=== PATIENT | female | born 1970 | race Caucasian/White ===

== ENCOUNTER 2021-05-06 08:09 | Outpatient (REF) | payer BC, SELFPAY ==
[2021-05-06 11:25] LABS: MANUAL DIFF FLAG NO
[2021-05-06 11:42] LABS: Basophils Absolute Auto 0.1 X10*3/uL (0.0-0.2); Basophils Percent Auto 0.8 % (0-2); Eosinophils Absolute Auto 0.2 X10*3/uL (0.0-0.4); Eosinophils Percent Auto 2.7 % (0-4); Hematocrit 44.9 % (37-47); Hemoglobin 14.8 g/dl (12.0-16.0); Imm Gran Abs Auto 0.02 X10*3/uL (0.00-0.03); Imm Gran Pct Auto 0.3 % (0.0-0.4); Lymphocytes Absolute Auto 2.3 X10*3/uL (1.2-4.9); Lymphocytes Percent Auto 28.7 % (20-40); Mean Corpuscular Hemoglobin 31.4 pg (27.0-33.0); Mean Corpuscular Volume 95.3 fL (80-98); Mean Platelet Volume 11.2 fL (9.4-12.3); Monocytes Absolute Auto 0.6 X10*3/uL (0.1-1.2); Monocytes Percent Auto 7.5 % (2-11); Neutrophils Absolute Auto 4.8 X10*3/uL (2.0-8.3); Platelet Count 380 X10*3/uL (160-400); Red Blood Count 4.71 X10*6/uL (4.20-5.50); Red Cell Distribution Width 13.2 % (11.0-16.0); White Blood Count 7.9 X10*3/uL (4.8-10.8)
[2021-05-06 12:00] LABS: Alanine Aminotransferase 23 U/L (0-31); Albumin Level 4.4 g/dL (3.5-5.0); Alkaline Phosphatase 76 U/L (39-117); Anion Gap 14 (12-20); Aspartate Amino Transferase 21 U/L (5-31); Bilirubin Total 0.5 mg/dL (0.0-1.0); Blood Urea Nitrogen 15 mg/dL (9-16); Calcium 9.5 mg/dL (8.4-10.2); Carbon Dioxide 25 mmol/L (22-29); Chloride 104 mmol/L (96-108); Cholesterol 245 mg/dL; Estimated Glomerular Filt Rate > 60; Glucose Fasting 100 mg/dL (60-99); HDL Cholesterol 42 mg/dL; LDL Cholesterol Calculated 163 mg/dl; Potassium 4.5 mmol/L (3.3-5.1); Sodium 138 mmol/L (135-145); Total Protein 7.7 g/dL (6.5-8.0); Triglycerides 201 mg/dL
[2021-05-06 12:14] LABS: TSH reflex Free T4 1.41 uIU/mL (0.32-4.0)
== END 2021-05-06 08:10 | disposition home or self-care (01) ==
LOC: HO.HMGCLDS 08:09
PROVIDERS: PCP Internal Medicine; Visit Provider Internal Medicine
DX: Z00.00 Encounter for general adult medical examination without abnormal findings (principal)
CPT/HCPCS: 36415; 80053; 80061; 84443; 85025

== ENCOUNTER 2021-12-31 03:21 | Emergency (ER) | payer BC, SELFPAY ==
[2021-12-31 03:24] VITALS: BP 115/48; BP 164/100; PULSE 115; PULSE 90; RESP 18; TEMP 36.8; O2SAT 100; BMI 33.6
--- NOTE | 2021-12-31 03:37 | ED.ANXIETY ---
HPI - Anxiety General Chief Complaint: Anxiety Stated Complaint: anxiety attack Time Seen by Provider: 12/31/21 03:37 Source: patient Mode of arrival: ambulatory Limitations: no limitations History of Present Illness HPI narrative: Patient history of anxiety woke up from the sleep with severe anxiety took 3 tablets of 0.5 mg Klonopin which she usually takes still feel little anxious slightly better no depression no suicidal ideation patient has increased stress at home Related Data Home Medications Medication Instructions Recorded Confirmed dextroamphetamine-amphetamine 20 20 mg PO DAILY 03/21/21 05/06/21 mg tablet (Adderall) venlafaxine 150 mg 150 mg PO BID 03/21/21 05/06/21 capsule,extended release 24 hr clonazepam 0.5 mg tablet 0.5 mg PO DAILY PRN tab 05/06/21 05/06/21 trazodone 50 mg tablet 50 mg PO BEDTIME PRN tab 05/06/21 05/06/21 Previous Rx's Medication Instructions Recorded hydrocortisone 2.5 % topical cream 1 appl TOPICAL BID PRN #30 g 03/21/21 Allergies Allergy/AdvReac Type Severity Reaction Status Date / Time paroxetine [From PAXIL] Allergy Intermediate RASH Unverified 05/06/21 07:38 FACE/NECK adhesive [ADHESIVE] Allergy Mild BLISTERS Unverified 05/06/21 07:38 adhesives, tape Allergy Unknown blisters Uncoded 05/06/21 07:38 Review of Systems Review of Systems: Yes all other systems are reviewed and are negative PMF Past Medical History Medical History Abnormal colonoscopy Annual physical exam Anxiety Diverticulosis Insomnia Mammogram normal Normal Pap smear Family History Family History Mother Hypertension Thyroid disorder Father Diverticulitis Maternal Grandmother Thyroid disorder Social History Social History Household Members Other:: 14 years daughter, works in will be retired in July Housing: Condominium Alcohol intake: current Patient Tobacco Use Status: Never used Tobacco Second Hand Smoke Exposure: No Advance Directives: No Current occupational status: employed Physical Exam Vital Signs: Vital Signs: Last Vital Signs Temp 98.2 F 12/31/21 03:24 Pulse 84 12/31/21 05:41 Resp 18 12/31/21 05:41 BP 111/62 12/31/21 05:41 Pulse Ox 98 12/31/21 05:41 BMI result Body Mass Index 33.6 Appearance: Alert. Oriented X3. No acute distress. Anxious+ Eyes: PERRLA, No Nystagmus ENT: Pharynx normal. Oral Mucosa moist Neck: Normal inspection. Neck supple. CVS: Normal heart rate and rhythm. Pulses normal. Respiratory: No respiratory distress. Equal air entry bilateral, Abdomen: Soft and nontender. Bowel sounds are present, no mass palpable, no CVA tenderness Skin: Skin warm and dry. Normal skin color. Normal skin turgor. Extremities: No lower extremity edema. No calf tenderness Neuro: Oriented X 3. No motor deficit. MDM - Anxiety MDM Narrative Medical decision making narrative: Patient after Benadryl slept felt much better will discharge patient home Differential Diagnosis Differential diagnosis: Likely acute anxiety Lab Data Attestation: I reviewed the patient's lab results. Labs: Lab Results 12/31/21 Range/Units 03:57 COVID-19 (EVELIN) Negative (Negative) COVID-19 Clin Com See Note Discharge Plan Discharge Clinical Impression: Anxiety Patient Disposition: Home, Self-Care Instructions: Anxiety (ED) Additional Instructions: Rest at home Taking medication as prescribed Follow with her therapist/psychiatrist Prescriptions: No Action venlafaxine 150 mg capsule,extended release 24hr 150 mg PO BID 0RF dextroamphetamine-amphetamine [Adderall] 20 mg tablet 20 mg PO DAILY 0RF hydrocortisone 2.5 % cream 1 appl topical BID PRN (Reason: rash) Qty: 30 2RF trazodone 50 mg tablet 50 mg PO BEDTIME PRN (Reason: insomnia) 0RF clonazepam 0.5 mg tablet 0.5 mg PO DAILY PRN (Reason: anxiety) 0RF
[2021-12-31] MEDS: diphenhydrAMINE HCL 25 MG TABLET 50 MG PO (03:58)
[2021-12-31 04:19] LABS: COVID-19 Test Negative (Negative)
[2021-12-31 05:41] VITALS: BP 111/62; PULSE 84; RESP 18; O2SAT 98
== END 2021-12-31 06:39 | disposition home or self-care (01) ==
PROVIDERS: Emergency Provider Internal Medicine
DX: F41.9 Anxiety disorder, unspecified (principal); Z79.899 Other long term (current) drug therapy; Z20.822 Contact with and (suspected) exposure to COVID-19
CPT/HCPCS: 87635; 99283; Q0163

== ENCOUNTER 2022-05-04 10:30 | Outpatient (REF) | payer BC, SELFPAY ==
[2022-05-04 11:24] LABS: MANUAL DIFF FLAG NO
[2022-05-04 11:33] LABS: Basophils Absolute Auto 0.1 X10*3/uL (0.0-0.2); Basophils Percent Auto 0.8 % (0-2); Eosinophils Absolute Auto 0.3 X10*3/uL (0.0-0.4); Eosinophils Percent Auto 3.3 % (0-4); Hemoglobin 15.4 g/dl (12.0-16.0); Imm Gran Abs Auto 0.02 X10*3/uL (0.00-0.03); Imm Gran Pct Auto 0.3 % (0.0-0.4); Lymphocytes Absolute Auto 2.8 X10*3/uL (1.2-4.9); Lymphocytes Percent Auto 35.1 % (20-40); Mean Corpuscular HGB Conc 33.5 g/dl (31.0-35.0); Mean Corpuscular Hemoglobin 31.2 pg (27.0-33.0); Mean Corpuscular Volume 93.3 fL (80.0-98.0); Mean Platelet Volume 10.7 fL (9.4-12.3); Monocytes Absolute Auto 0.6 X10*3/uL (0.1-1.2); Monocytes Percent Auto 7.4 % (2-11); Neutrophils Absolute Auto 4.2 x10*3/uL (2.0-8.3); Neutrophils Percent Auto 53.1 % (45-73); Platelet Count 386 X10*3/uL (160-400); Red Blood Count 4.93 X10*6/uL (4.20-5.50); Red Cell Distribution Width 12.8 % (11.0-16.0); White Blood Count 7.8 X10*3/uL (4.8-10.8)
[2022-05-04 11:59] LABS: Alanine Aminotransferase 38 U/L (0-31); Albumin Level 4.4 g/dL (3.5-5.0); Alkaline Phosphatase 89 U/L (39-117); Anion Gap 15 (12-20); Aspartate Amino Transferase 29 U/L (5-31); Bilirubin Total 0.4 mg/dL (0.0-1.0); Blood Urea Nitrogen 17 mg/dL (9-16); Calcium 9.8 mg/dL (8.4-10.2); Carbon Dioxide 27 mmol/L (22-29); Chloride 103 mmol/L (96-108); Cholesterol 269 mg/dL; Estimated Glomerular Filt Rate 56; Glucose Fasting 102 mg/dL (60-99); HDL Cholesterol 39 mg/dL; LDL Cholesterol Calculated 167 mg/dl; Potassium 4.5 mmol/L (3.3-5.1); Rheumatoid Factor < 15.0 IU/mL (<15.0); Sodium 140 mmol/L (135-145); Total Protein 7.8 g/dL (6.5-8.0); Triglycerides 318 mg/dL
[2022-05-04 12:15] LABS: Erythrocyte Sedimentation Rate 12 MM/HR (0-20)
[2022-05-04 12:18] LABS: TSH reflex Free T4 1.31 uIU/mL (0.32-4.0)
[2022-05-07 16:47] LABS: Cyclic Citrullinated Peptide <16 UNITS
== END 2022-05-04 10:31 | disposition home or self-care (01) ==
LOC: HO.HMGCLDS 10:30
PROVIDERS: PCP Internal Medicine; Visit Provider Internal Medicine
DX: M25.50 Pain in unspecified joint (principal)
CPT/HCPCS: 36415; 80053; 80061; 84443; 85025; 85652; 86200; 86431

== ENCOUNTER 2023-02-27 05:12 | Inpatient (IN) | payer BC, SELFPAY ==
[2023-02-27] VITALS (7 sets, daily range): BP systolic 115–138; BP diastolic 73–85; PULSE 71–105; RESP 16–18; TEMP 36.1–37.2; O2SAT 95–100; BMI 32.8
--- NOTE | ~2023-02-27 | CT_ITS ---
EXAMINATION: CT ABDOMEN AND PELVIS WITHOUT CONTRAST CLINICAL INFORMATION: Left lower abdominal pain. Diverticulitis. COMPARISON: Multiple priors, most recent CT abdomen/pelvis dated 09/14/2019. TECHNIQUE: Multidetector volumetric imaging was performed from the superior aspect of the liver through the pubic symphysis. Sagittal and coronal reformatted images were obtained on the technologist's workstation. This CT examination was performed using dose optimization techniques as appropriate, variously including the following: *Automated exposure control *Adjustment of mA and/or kV according to patient size (this includes techniques or standardized protocols for targeted exams where dose is matched to indication/reason for exam; i.e. extremities or head) *Use of iterative reconstruction technique DLP: 668 mGy-cm FINDINGS: LUNG BASES: The visualized lung bases are unremarkable. LIVER, GALLBLADDER, AND BILIARY TREE: The liver is normal in size and shape. Parenchymal hypointensity, consistent with steatosis. No focal hepatic lesion or biliary ductal dilatation is present. The gallbladder is unremarkable with no evidence of radiopaque gallstones, gallbladder wall thickening, or obvious pericholecystic inflammatory changes. PANCREAS: Unremarkable. SPLEEN: Unremarkable. ADRENAL GLANDS: Partially calcified left adrenal nodule measuring up to 1.5 cm, unchanged when compared to prior examinations. No concerning adrenal lesion. KIDNEYS AND URETERS: The kidneys are normal in size, shape, and attenuation. No hydronephrosis, hydroureter, or calculi seen. No perinephric stranding. BLADDER: Nondistended and unremarkable. GASTROINTESTINAL TRACT: Colonic diverticulosis. There is a prominent diverticulum along the anterior margin of the splenic flexure with circumferential bowel wall thickening and adjacent fat stranding, consistent with acute diverticulitis. No extraluminal air or organized fluid collection to suggest perforation or abscess formation. No small or large bowel obstruction. Unremarkable appendix. PERITONEAL CAVITY: No intra-abdominal free air or free fluid. No intra-abdominal mass or organized fluid collection/abscess formation. ABDOMINAL WALL: No significant hernia is appreciated. LYMPH NODES: No significant lymphadenopathy. VASCULAR: Unremarkable. PELVIC VISCERA: The uterus and adnexa are unremarkable. OSSEOUS STRUCTURES: Unremarkable. CT/CT abdomen pelvis wo IV con IMPRESSION: 1. Acute diverticulitis within the splenic flexure. No evidence of perforation or abscess formation. 2. Hepatic steatosis. No hepatic parenchymal lesion or biliary ductal dilatation. 3. Additional chronic findings are unchanged. Fleischner guidelines were followed.
[2023-02-27 05:43] LABS: Basophils Percent Auto 0.3 % (0-2); Eosinophils Absolute Auto 0.4 X10*3/uL (0.0-0.4); Eosinophils Percent Auto 2.8 % (0-4); Hematocrit 41.1 % (37.0-47.0); Hemoglobin 13.9 g/dl (12.0-16.0); Imm Gran Abs Auto 0.06 X10*3/uL (0.00-0.03); Imm Gran Pct Auto 0.4 % (0.0-0.4); Lymphocytes Absolute Auto 2.6 X10*3/uL (1.2-4.9); Lymphocytes Percent Auto 19.1 % (20-40); MANUAL DIFF FLAG NO; Mean Corpuscular HGB Conc 33.8 g/dl (31.0-35.0); Mean Corpuscular Volume 91.7 fL (80.0-98.0); Mean Platelet Volume 10.1 fL (9.4-12.3); Monocytes Absolute Auto 0.9 X10*3/uL (0.1-1.2); Monocytes Percent Auto 6.9 % (2-11); Neutrophils Absolute Auto 9.5 x10*3/uL (2.0-8.3); Neutrophils Percent Auto 70.5 % (45-73); Platelet Count 346 X10*3/uL (160-400); Red Blood Count 4.48 X10*6/uL (4.20-5.50); Red Cell Distribution Width 12.8 % (11.0-16.0); White Blood Count 13.5 X10*3/uL (4.8-10.8)
[2023-02-27 05:57] LABS: Anion Gap 14 (12-20); Blood Urea Nitrogen 16 mg/dL (9-16); Calcium 9.4 mg/dL (8.4-10.2); Carbon Dioxide 24 mmol/L (22-29); Chloride 104 mmol/L (96-108); Creatinine Clr Calc Pharmacy 75.8; Estimated Glomerular Filt Rate > 60; Glucose Random 122 mg/dL (60-115); Lipase 13 U/L (8-78); Potassium 4.2 mmol/L (3.3-5.1); Sodium 138 mmol/L (135-145)
[2023-02-27 06:03] LABS: Troponin-I High Sensitivity < 2.7 ng/L (<3.5-17.0)
--- NOTE | 2023-02-27 07:41 | ED_ITS ---
HPI - Abdominal Pain General Chief Complaint: Abdominal Pain Stated Complaint: Diverticulitis? Time Seen by Provider: 02/27/23 07:26 Source: patient Mode of arrival: ambulatory Limitations: no limitations History of Present Illness HPI narrative: 52-year-old female came in for evaluation of lower abdominal pain. Started about 2 days ago and progressively getting worse described as dull aching pain mostly to the lower abdomen radiates to the back and feels pressure in the rectum area, declined any vomiting but sometimes feels nauseous with the pain, last bowel movement was yesterday and was normal passing flatus normally, no blood in the stool. No fever, no chills. Patient had a similar symptoms in the past and she had diverticulitis. No previous abdominal surgery in the past. Related Data Home Medications Medication Instructions Recorded Confirmed clonazepam 0.5 mg tablet 0.5 mg PO DAILY PRN anxiety 05/06/21 05/04/22 Previous Rx's Medication Instructions Recorded hydrocortisone 2.5 % topical cream 1 appl topical BID PRN rash #30 02/17/22 grams trazodone 50 mg tablet 50 mg PO BEDTIME PRN insomnia #90 05/04/22 tabs venlafaxine 150 mg 150 mg PO BID #180 caps 05/04/22 capsule,extended release 24 hr Allergies Allergy/AdvReac Type Severity Reaction Status Date / Time paroxetine [From PAXIL] Allergy Intermediate RASH Unverified 05/04/22 10:03 FACE/NECK adhesive [ADHESIVE] Allergy Mild BLISTERS Unverified 05/04/22 10:03 adhesives, tape Allergy Unknown blisters Uncoded 05/04/22 10:03 Review of Systems Review of Systems All other systems are reviewed and are negative Constitutional: Reports as per HPI and Reports no additional constitutional complaints Eyes: Reports as per HPI and Reports no additional eye complaints Reports system reviewed and no additional complaints, except as documented Cardiovascular: Reports as per HPI and Reports no additional cardiovascular complaints Respiratory: Reports as per HPI and Reports no additional respiratory complaints Gastrointestinal: Reports as per HPI and Reports no additional gastrointestinal complaints Genitourinary: Reports no additional female genitourinary complaints Musculoskeletal: Reports no additional musculoskeletal complaints Skin/Breast: Reports system reviewed and no additional complaints, except as docu Psychiatric: Reports no additional psychiatric complaints Endocrine: Reports no additional endocrine complaints Hematologic/Lymphatic: Reports no additional hematologic/lymphatic complaints Allergic/Immunologic: Reports no additional allergic/immunologic complaints Reports system reviewed and no additional complaints, except as documented and Reports Abnormal speech present [facility] Past Medical History Medical History Abnormal colonoscopy Annual physical exam Anxiety Diverticulosis Insomnia Mammogram normal Normal Pap smear Family History Family History Mother Hypertension Thyroid disorder Father Diverticulitis Maternal Grandmother Thyroid disorder Social History Social History Household Members Other:: 14 years daughter, works in will be retired in July Housing: Condominium Alcohol intake: current Patient Tobacco Use Status: Never used Tobacco Second Hand Smoke Exposure: No Advance Directives: No Advance Directives Information Provided: No Current occupational status: employed Cognitive needs: No Hearing needs: No Vision needs: No Physical Exam ED Vital Signs: Vital Signs - 24 hr 02/27/23 05:24 02/27/23 08:20 02/27/23 10:01 Temperature 98.4 F 98.9 F 99 F Pulse Rate 105 H 83 82 Respiratory Rate 18 16 16 Blood Pressure 131/75 125/84 121/78 Pulse Oximetry 95 100 99 Oxygen Delivery Method Room Air Room Air Room Air BMI result Body Mass Index 32.8 Vital signs have been reviewed as appeared to be correct. Blood pressure normal. Heart rate normal. Respiration rate normal. Temperature normal. Oxygen saturation normal. Appearance: Alert. Oriented X3. No acute distress. Head: Normal external exam. Normocephalic. Atraumatic. No [place] signs noted. No raccoon eyes noted, right maxillary sinus tenderness on percussion. Eyes: PERRLA. EOMI. Conjunctiva and sclera normal. Eyelids normal. ENT: TM's Normal. Pharynx normal. Uvula midline. Moist mucous membranes. No trismus noted. No drooling noted. No muffled voice noted. Neck: Normal inspection. Neck supple. FROM. No adenopathy. Thyroid Normal. No meningeal signs. No neck mass noted. CVS: Normal heart rate and rhythm. Heart sound normal. No murmurs noted. Pulses normal throughout. Respiratory: No respiratory distress. Painless inspiration. Breath sounds normal. No wheezes/rales/rhonchi noted. Chest nontender. No accessory muscle usage noted or decreased air movement noted. Abdomen: Soft, diffuse lower abdominal tenderness, no guarding, no rebound t enderness. Bowel sounds normal in all 4 quadrants. No distention noted. No organomegaly noted. No visible injury noted. Back: No CVA tenderness. Full range of motion noted. Skin: Skin warm and dry. Normal skin color. Normal skin turgor. No rashes/lesions/lacerations noted. Extremities: No lower extremity edema. Extremities exhibit normal range of motion. Extremities nontender. Neuro: Oriented X 3. Cranial nerve exam: II-XII are grossly intact No motor deficit. No sensory deficit. Reflexes normal. Course Course Course Narrative: 52-year-old female coming for noncomplicated diverticulitis, with SIRS criteria, exam is also significant for right maxillary sinusitis. Patient is nervous to go home with oral antibiotic had a history of long hospitalization for her previous diverticulitis. Medical Decision Making Differential Diagnosis Differential Diagnoses: The differential diagnosis associated with the presentation includes (Acute sinusitis, diverticulitis, perforated viscus, intra-abdominal abscess, electrolytes abnormalities, severe anemia, UTI.) Admission/Observation Consideration of admission/observation: Escalation of care including admission/observation considered Consult Healthcare Provider Management of the patient was discussed with: Hospitalist (Dr. Mooney) Lab Data MDM Lab Attestation statement: I reviewed the patient's lab results. 02/27/23 05:38 02/27/23 05:38 Labs: Lab Results 02/27/23 02/27/23 02/27/23 Range/Units 05:38 05:38 05:38 WBC 13.5 H (4.8-10.8) X10*3/uL RBC 4.48 (4.20-5.50) X10*6/uL Hgb 13.9 (12.0-16.0) g/dl Hct 41.1 (37.0-47.0) % MCV 91.7 (80.0-98.0) fL MCH 31.0 (27.0-33.0) pg MCHC 33.8 (31.0-35.0) g/dl RDW 12.8 (11.0-16.0) % Plt Count 346 (160-400) X10*3/uL MPV 10.1 (9.4-12.3) fL Immature Gran % (Auto) 0.4 (0.0-0.4) % Neut % (Auto) 70.5 (45-73) % Lymph % (Auto) 19.1 L (20-40) % [place] % (Auto) 6.9 (2-11) % Eos % (Auto) 2.8 (0-4) % Baso % (Auto) 0.3 (0-2) % Lymph # (Auto) 2.6 (1.2-4.9) X10*3/uL [place] # (Auto) 0.9 (0.1-1.2) X10*3/uL Eos # (Auto) 0.4 (0.0-0.4) X10*3/uL Baso # (Auto) 0.0 (0.0-0.2) X10*3/uL Abs Immat Gran (auto) 0.06 H (0.00-0.03) X10*3/uL Absolute Neuts (auto) 9.5 H (2.0-8.3) x10*3/uL Absolute Nucleated RBC 0.000 (0.0-0.012) X10*3/uL Nucleated RBC % (auto) 0.0 (0.0-0.2) /100WBC Sodium 138 (135-145) mmol/L Potassium 4.2 (3.3-5.1) mmol/L Chloride 104 (96-108) mmol/L Carbon Dioxide 24 (22-29) mmol/L Anion Gap 14 (12-20) BUN 16 (9-16) mg/dL Creatinine 0.87 (0.5-1.4) mg/dL Estim Creat Clear Calc 75.8 Estimated GFR > 60 Random Glucose 122 H (60-115) mg/dL Lactic Acid (0.5-2.0) mmol/L Calcium 9.4 (8.4-10.2) mg/dL Total Bilirubin 0.6 (0.0-1.0) mg/dL Direct Bilirubin 0.2 (0.0-0.5) mg/dL AST 20 (5-31) U/L ALT 23 (0-31) U/L Alkaline Phosphatase 81 (39-117) U/L Troponin I High Sens < 2.7 (<3.5-17.0) ng/L Total Protein 7.2 (6.5-8.0) g/dL Albumin 4.1 (3.5-5.0) g/dL Lipase 13 (8-78) U/L Urine Color Urine Appearance Urine pH (5.0-9.0) Ur Specific [place] (1.005-1.025) Urine Protein (Neg-Trace) mg/dL Urine Glucose (UA) (Negative) mg/dL Urine Ketones (Negative) mg/dL Urine Blood (Negative) Urine Nitrite (Negative) Ur Leukocyte Esterase (Negative) Urine RBC (0-2) /HPF Urine WBC (0-5) /HPF Ur Squamous Epith Cells (0-2) /HPF Urine Bacteria (None Seen) Hyaline Casts (0-2) /LPF Urine Test (NEGATIVE) 02/27/23 02/27/23 02/27/23 Range/Units 08:16 08:16 08:16 WBC (4.8-10.8) X10*3/uL RBC (4.20-5.50) X10*6/uL Hgb (12.0-16.0) g/dl Hct (37.0-47.0) % MCV (80.0-98.0) fL MCH (27.0-33.0) pg MCHC (31.0-35.0) g/dl RDW (11.0-16.0) % Plt Count (160-400) X10*3/uL MPV (9.4-12.3) fL Immature Gran % (Auto) (0.0-0.4) % Neut % (Auto) (45-73) % Lymph % (Auto) (20-40) % [place] % (Auto) (2-11) % Eos % (Auto) (0-4) % Baso % (Auto) (0-2) % Lymph # (Auto) (1.2-4.9) X10*3/uL [place] # (Auto) (0.1-1.2) X10*3/uL Eos # (Auto) (0.0-0.4) X10*3/uL Baso # (Auto) (0.0-0.2) X10*3/uL Abs Immat Gran (auto) (0.00-0.03) X10*3/uL Absolute Neuts (auto) (2.0-8.3) x10*3/uL Absolute Nucleated RBC (0.0-0.012) X10*3/uL Nucleated RBC % (auto) (0.0-0.2) /100WBC Sodium (135-145) mmol/L Potassium (3.3-5.1) mmol/L Chloride (96-108) mmol/L Carbon Dioxide (22-29) mmol/L Anion Gap (12-20) BUN (9-16) mg/dL Creatinine (0.5-1.4) mg/dL Estim Creat Clear Calc Estimated GFR Random Glucose (60-115) mg/dL Lactic Acid 0.6 (0.5-2.0) mmol/L Calcium (8.4-10.2) mg/dL Total Bilirubin (0.0-1.0) mg/dL Direct Bilirubin (0.0-0.5) mg/dL AST (5-31) U/L ALT (0-31) U/L Alkaline Phosphatase (39-117) U/L Troponin I High Sens (<3.5-17.0) ng/L Total Protein (6.5-8.0) g/dL Albumin (3.5-5.0) g/dL Lipase (8-78) U/L Urine Color Yellow Urine Appearance Clear Urine pH 5.5 (5.0-9.0) Ur Specific [place] 1.010 (1.005-1.025) Urine Protein Negative (Neg-Trace) mg/dL Urine Glucose (UA) Negative (Negative) mg/dL Urine Ketones Negative (Negative) mg/dL Urine Blood Small (1+) H (Negative) Urine Nitrite Negative (Negative) Ur Leukocyte Esterase Moderate (2+) H (Negative) Urine RBC 0-2 (0-2) /HPF Urine WBC 11-20 H (0-5) /HPF Ur Squamous Epith Cells 6-10 (0-2) /HPF Urine Bacteria Trace (None Seen) Hyaline Casts 0-2 (0-2) /LPF Urine Test NEGATIVE (NEGATIVE) Independent Interpretation I performed an independent interpretation of an: CT Scan (Abdomen and pelvis: Acute diverticulitis of the splenic flexure, no abscess, no med perforation) Radiology Impression Discussion of test interpretation with radiology: I have reviewed the radiologist's reading. Medications Administered Discontinued Medications Generic Name Dose Route Start Last Admin Trade Name Vadimq PRN Reason Stop Dose Admin Sodium Chloride 1,000 mls @ 999 mls/hr 02/27/23 07:39 02/27/23 09:44 Ns IV 02/27/23 08:39 999 mls/hr .Q1H1M ONE Administration Piperacillin Sod/Tazobactam 50 mls @ 100 mls/hr 02/27/23 10:05 02/27/23 10:33 Sod 3.375 gm/ Sodium Chloride IV 02/27/23 10:34 100 mls/hr ONCE ONE Administration Morphine Sulfate 2 mg 02/27/23 07:39 02/27/23 09:51 Morphine Sulfate 2 Mg/Ml Cartridge IVPUSH 02/27/23 07:40 2 mg ONCE ONE Administration Protocol Ondansetron HCl 4 mg 02/27/23 07:39 02/27/23 09:51 Ondansetron Hcl 4 Mg/2 Ml Vial IVPUSH 02/27/23 07:40 4 mg ONCE ONE Administration Discharge Plan Discharge Clinical Impression: Diverticulitis, Sinusitis Patient Disposition: Admitted As Inpatient
[2023-02-27 08:20] LABS: Alanine Aminotransferase 23 U/L (0-31); Albumin Level 4.1 g/dL (3.5-5.0); Alkaline Phosphatase 81 U/L (39-117); Aspartate Amino Transferase 20 U/L (5-31); Bilirubin Direct 0.2 mg/dL (0.0-0.5); Bilirubin Total 0.6 mg/dL (0.0-1.0); Total Protein 7.2 g/dL (6.5-8.0)
[2023-02-27 08:26] LABS: Appearance Urine Clear; Color Urine Yellow; Glucose Urine UA Negative (Negative); Leukocyte Esterase Urine Moderate (2+) (Negative); Nitrite Urine Negative (Negative); PH 5.5 (5.0-9.0); UMIC TRIGGER UACC YES; Urine Blood Small (1+) (Negative); Urine Ketones Negative (Negative); Urine Protein Negative (Neg-Trace)
[2023-02-27 08:30] LABS: UPreg QC Valid YES; Urine Pregnancy NEGATIVE (NEGATIVE)
[2023-02-27 08:35] LABS: Lactic Acid 0.6 mmol/L (0.5-2.0)
[2023-02-27 08:39] LABS: Bacteria Urine Trace (None Seen); Hyaline Casts Urine 0-2 /LPF (0-2); RBC Urine 0-2 /HPF (0-2); UACC Culture Trigger YES
[2023-02-27] MEDS: 0.9 % Sodium Chloride 1,000 ML 999 ML IV (09:44)
[2023-02-27] MEDS: Morphine Sulfate 2 MG/ML CARTRIDGE IVPUSH (09:51)
[2023-02-27] MEDS: ondansetron HCL 4 MG/2 ML VIAL IVPUSH (09:51)
[2023-02-27] MEDS: Piperacillin Sodium/Tazobactam 3.375 GM in 0.9 % Sodium Chloride 50 ML IV (10:33)
--- NOTE | 2023-02-27 11:39 | PHA.MEDREC ---
Pharmacy Consult ? Medication Reconciliation Pharmacy has completed the medication reconciliation. spoke with patient. Her venlafaxine is prescribed as 150mg BID however she reports taking 300mg at bedtime. She also takes Estroven OTC once daily for menopause symptoms.
--- NOTE | 2023-02-27 11:50 | P.HPHOSP_ITS ---
History of Present Illness Date of Service: 02/27/23 Chief Complaint: Abd pain 52-year-old female with known history of diverticulosis presents with approximately 2 days of left-sided abdominal pain started out as a dull ache and progressed. She states her pain radiates to her back and she feels pressure in her rectum. She denies vomiting but admits nausea. She denies fever chills Review of Systems Review of Systems: Denies chest pain Denies shortness of breath Admits to nausea denies vomiting denies diarrhea Admits to subjective fevers PMFSH Medical History Abnormal colonoscopy Annual physical exam Anxiety Diverticulosis Insomnia Mammogram normal Normal Pap smear Family History Mother Hypertension Thyroid disorder Father Diverticulitis Maternal Grandmother Thyroid disorder Social History Household Members Other:: 14 years daughter, works in will be retired in July Housing: Condominium Alcohol intake: current Patient Tobacco Use Status: Never used Tobacco Second Hand Smoke Exposure: No Advance Directives: No Advance Directives Information Provided: No Current occupational status: employed Cognitive needs: No Hearing needs: No Vision needs: No Meds Allergies Allergy/AdvReac Type Severity Reaction Status Date / Time paroxetine [From PAXIL] Allergy Intermediate RASH Unverified 05/04/22 10:03 FACE/NECK adhesive [ADHESIVE] Allergy Mild BLISTERS Unverified 05/04/22 10:03 adhesives, tape Allergy Unknown blisters Uncoded 05/04/22 10:03 Active Medications: Current Medications Acetaminophen (Acetaminophen 325 Mg Tablet) 650 mg PO Q6H PRN PRN Reason: Pain, Mild (Pain Scale 1-3) Clonazepam (Clonazepam 0.5 Mg Tablet) 0.5 mg PO DAILY PRN PRN Reason: anxiety Enoxaparin Sodium (Enoxaparin Sodium 40 Mg/0.4 Ml Syringe) 40 mg SUBCUT Q24H ZULAY Piperacillin Sod/Tazobactam (Sod 4.5 gm/ Sodium Chloride) 100 mls @ 200 mls/hr IV Q6H ZULAY Morphine Sulfate (Morphine Sulfate 4 Mg/Ml Cartridge) 4 mg IVPUSH Q4H PRN; Protocol PRN Reason: Pain, Severe (Pain Scale 7-10) Oxymetazoline HCl (Oxymetazoline Hcl 0.05 % Nasal 15 Ml [place]) 1 spray NOSTRIL- B BID PRN PRN Reason: Congestion Pharmacy Consult (Consult Rx Perform Med Rec) 1 each MISCELLANE ONCE PRN PRN Reason: Consult order Sodium Chloride (0.9 % Sodium Chloride Flush 3 Ml Syringe) 3 ml IVFLUSH QSHIFT ZULAY Trazodone HCl (Trazodone Hcl 50 Mg Tablet) 50 mg PO BEDTIME ZULAY Venlafaxine HCl (Venlafaxine Hcl Er 150 Mg Cap.Er.24h) 300 mg PO BEDTIME ZULAY Home Medications Medication Instructions Recorded Confirmed Last Taken Type clonazepam 0.5 mg tablet 0.5 mg PO DAILY PRN anxiety 05/06/21 02/27/23 Unknown History clotrimazole-betamethasone 1 1 appl topical BID PRN Rash 02/27/23 02/27/23 Unknown History %-0.05 % topical cream oxymetazoline 0.05 % nasal spray 1 spray intranasal BID PRN 02/27/23 02/27/23 Unknown History (Afrin (oxymetazoline)) Congestion trazodone 50 mg tablet 50 mg PO BEDTIME 02/27/23 02/27/23 02/26/23 History venlafaxine 150 mg 300 mg PO BEDTIME 02/27/23 02/27/23 02/26/23 History capsule,extended release 24 hr Physical Exam Vital Signs and Narrative: Vital Signs: Last Vital Signs Temp 99 F 02/27/23 10:01 Pulse 82 02/27/23 10:01 Resp 16 02/27/23 10:01 BP 121/78 02/27/23 10:01 Pulse Ox 99 02/27/23 10:01 O2 Del Method Room Air 02/27/23 10:01 BMI result Body Mass Index 32.8 Const: Other: Awake alert lying quietly in bed no acute distress Resp: Other: Clear to auscultation bilaterally no rales rhonchi or wheezes Cardio: Other: No S4; positive S1-S2; no S3 murmurs rubs or gallops GI: Other: Mild left upper quadrant pain without rebound. Some voluntary guarding. Quiet bowel sounds Neuro: Other: Cranial nerves 2-12 grossly intact as tested. Motor is 5/5 in all extremities. Sensation is intact cognition appropriate Extrem: Other: No edema bilaterally Results Labs 02/27/23 05:38 02/27/23 05:38 Labs: Laboratory Results - last 24 hr 02/27/23 02/27/23 02/27/23 05:38 05:38 05:38 MCV 91.7 MCH 31.0 MCHC 33.8 RDW 12.8 Plt Count 346 MPV 10.1 Immature Gran % (Auto) 0.4 Neut % (Auto) 70.5 Lymph % (Auto) 19.1 L [place] % (Auto) 6.9 Eos % (Auto) 2.8 Baso % (Auto) 0.3 Lymph # (Auto) 2.6 [place] # (Auto) 0.9 Eos # (Auto) 0.4 Baso # (Auto) 0.0 Abs Immat Gran (auto) 0.06 H Absolute Neuts (auto) 9.5 H Absolute Nucleated RBC 0.000 Nucleated RBC % (auto) 0.0 Anion Gap 14 Estim Creat Clear Calc 75.8 Estimated GFR > 60 Random Glucose 122 H Lactic Acid Calcium 9.4 Total Bilirubin 0.6 Direct Bilirubin 0.2 AST 20 ALT 23 Alkaline Phosphatase 81 Troponin I High Sens < 2.7 Total Protein 7.2 Albumin 4.1 Lipase 13 Urine Color Urine Appearance Urine pH Ur Specific [place] Urine Protein Urine Glucose (UA) Urine Ketones Urine Blood Urine Nitrite Ur Leukocyte Esterase Urine RBC Urine WBC Ur Squamous Epith Cells Urine Bacteria Hyaline Casts Urine Test 02/27/23 02/27/23 02/27/23 08:16 08:16 08:16 MCV MCH MCHC RDW Plt Count MPV Immature Gran % (Auto) Neut % (Auto) Lymph % (Auto) [place] % (Auto) Eos % (Auto) Baso % (Auto) Lymph # (Auto) [place] # (Auto) Eos # (Auto) Baso # (Auto) Abs Immat Gran (auto) Absolute Neuts (auto) Absolute Nucleated RBC Nucleated RBC % (auto) Anion Gap Estim Creat Clear Calc Estimated GFR Random Glucose Lactic Acid 0.6 Calcium Total Bilirubin Direct Bilirubin AST ALT Alkaline Phosphatase Troponin I High Sens Total Protein Albumin Lipase Urine Color Yellow Urine Appearance Clear Urine pH 5.5 Ur Specific [place] 1.010 Urine Protein Negative Urine Glucose (UA) Negative Urine Ketones Negative Urine Blood Small (1+) H Urine Nitrite Negative Ur Leukocyte Esterase Moderate (2+) H Urine RBC 0-2 Urine WBC 11-20 H Ur Squamous Epith Cells 6-10 Urine Bacteria Trace Hyaline Casts 0-2 Urine Test NEGATIVE Imaging Radiologist's Impressions: Impressions Abdomen/Pelvis CT 02/27/23 08:05 IMPRESSION: 1. Acute diverticulitis within the splenic flexure. No evidence of perforation or abscess formation. 2. Hepatic steatosis. No hepatic parenchymal lesion or biliary ductal dilatation. 3. Additional chronic findings are unchanged. Fleischner guidelines were followed. Assessment and Plan (1) Diverticulitis: Status: Acute (2) Anxiety: Status: Acute Plan 52-year-old female with known history of diverticulosis presents with 2 days of worsening left upper quadrant pain and nausea consistent with past diverticulitis episodes. Subsequent CT correlates with physical exam showing acute diverticulitis within the splenic fracture. No perforation or abscess. At this point in time she will be admitted for IV antibiotics and pain control 1 Diverticulitis -Zosyn(1) -IV morphine for pain management; add oral oxycodone as appropriate -clear liquid diet; will advance as tolerated 2. Anxiety -control at present -continue outpatient therapies Full code Santoshx Will require at least 2 inpatient night stays to treat diverticulitis with IV antibiotics. This cannot be achieved a lesser acute setting Time Spent With Patient Time: Total time managing care of this patient today ____ minutes. Quality Stroke Does the patient have a stroke diagnosis?: No VTE Prior VTE?: No VTE Risk Level:: Medical - moderate - high VTE Device Contraindication: Treatment Not Indicated VTE Drug Contraindication: N/A - Med Ordered
[2023-02-27] MEDS: Enoxaparin Sodium 40 MG/0.4 ML SYRINGE SUBCUT (12:08)
[2023-02-27] MEDS: Morphine Sulfate 4 MG/ML CARTRIDGE IVPUSH ×3 (12:10→22:07)
--- NOTE | 2023-02-27 12:20 | PC.NURSE ---
Pt Alert, calm, pleasant on approach. c/o 7/10 pain to back. facial grimacing noted, PRN pain medication administered.
[2023-02-27] MEDS: Piperacillin Sodium/Tazobactam 4.5 GM in 0.9 % Sodium Chloride 100 ML IV ×2 (17:02→21:59)
[2023-02-27] MEDS: Acetaminophen 325 MG TABLET 650 MG PO (19:35)
[2023-02-27] MEDS: 0.9 % Sodium Chloride Flush 3 ML SYRINGE IVFLUSH (21:59)
[2023-02-27] MEDS: traZODone HCL 50 MG TABLET PO (21:59)
[2023-02-27] MEDS: Venlafaxine HCl ER 150 MG CAP.ER.24H 300 MG PO (21:59)
[2023-02-28] MEDS: Acetaminophen 325 MG TABLET 650 MG PO ×3 (02:06→22:35)
[2023-02-28] MEDS: clonazePAM 0.5 MG TABLET PO (02:09)
[2023-02-28] MEDS: Piperacillin Sodium/Tazobactam 4.5 GM in 0.9 % Sodium Chloride 100 ML IV ×4 (04:03→22:45)
[2023-02-28 04:13] VITALS: BP 112/66; PULSE 65; RESP 16; TEMP 36.4; O2SAT 97
[2023-02-28] MEDS: Morphine Sulfate 4 MG/ML CARTRIDGE IVPUSH (04:42)
[2023-02-28 06:24] LABS: MANUAL DIFF FLAG NO
[2023-02-28 06:27] LABS: Basophils Absolute Auto 0.1 X10*3/uL (0.0-0.2); Basophils Percent Auto 0.5 % (0-2); Eosinophils Absolute Auto 0.4 X10*3/uL (0.0-0.4); Eosinophils Percent Auto 3.8 % (0-4); Hematocrit 39.4 % (37.0-47.0); Hemoglobin 12.9 g/dl (12.0-16.0); Imm Gran Abs Auto 0.03 X10*3/uL (0.00-0.03); Imm Gran Pct Auto 0.3 % (0.0-0.4); Lymphocytes Absolute Auto 2.2 X10*3/uL (1.2-4.9); Lymphocytes Percent Auto 23.7 % (20-40); Mean Corpuscular HGB Conc 32.7 g/dl (31.0-35.0); Mean Corpuscular Hemoglobin 30.4 pg (27.0-33.0); Mean Corpuscular Volume 92.7 fL (80.0-98.0); Mean Platelet Volume 10.4 fL (9.4-12.3); Monocytes Absolute Auto 0.8 X10*3/uL (0.1-1.2); Monocytes Percent Auto 8.4 % (2-11); Neutrophils Absolute Auto 5.9 x10*3/uL (2.0-8.3); Neutrophils Percent Auto 63.3 % (45-73); Platelet Count 304 X10*3/uL (160-400); Red Blood Count 4.25 X10*6/uL (4.20-5.50); Red Cell Distribution Width 12.8 % (11.0-16.0); White Blood Count 9.4 X10*3/uL (4.8-10.8)
[2023-02-28 06:42] LABS: Alanine Aminotransferase 19 U/L (0-31); Albumin Level 3.6 g/dL (3.5-5.0); Alkaline Phosphatase 65 U/L (39-117); Anion Gap 11 (12-20); Aspartate Amino Transferase 16 U/L (5-31); Blood Urea Nitrogen 10 mg/dL (9-16); Calcium 9.3 mg/dL (8.4-10.2); Carbon Dioxide 30 mmol/L (22-29); Chloride 103 mmol/L (96-108); Creatinine Clr Calc Pharmacy 70.9; Estimated Glomerular Filt Rate > 60; Glucose Fasting 108 mg/dL (60-99); Sodium 140 mmol/L (135-145); Total Protein 6.5 g/dL (6.5-8.0)
[2023-02-28 08:00] VITALS: BP 112/65; PULSE 67; RESP 18; TEMP 36.1; O2SAT 93
[2023-02-28] MEDS: 0.9 % Sodium Chloride Flush 3 ML SYRINGE IVFLUSH ×2 (09:58→21:02)
[2023-02-28] MEDS: Enoxaparin Sodium 40 MG/0.4 ML SYRINGE SUBCUT (10:34)
--- NOTE | 2023-02-28 10:56 | P.PNIM_ITS ---
Subjective Subjective Date of Service: 02/28/23 Interval History: Slowly improving. Still some mild pain left upper quadrant Review of Systems Denies chest pain Denies shortness of breath Admits to nausea denies vomiting denies diarrhea Admits to subjective fevers Physical Exam Vital Signs: Vital Signs: Last Vital Signs Temp 97 F 02/28/23 08:00 Pulse 67 02/28/23 08:00 Resp 18 02/28/23 08:00 BP 112/65 02/28/23 08:00 Pulse Ox 93 02/28/23 08:00 O2 Del Method Room Air 02/28/23 08:00 BMI result Body Mass Index 32.8 Const: Other: Awake alert lying quietly in bed no acute distress Resp: Other: Clear to auscultation bilaterally no rales rhonchi or wheezes Cardio: Other: No S4; positive S1-S2; no S3 murmurs rubs or gallops GI: Other: Mild left upper quadrant pain without rebound. Some voluntary guarding. Quiet bowel sounds Neuro: Other: Cranial nerves 2-12 grossly intact as tested. Motor is 5/5 in all extremities. Sensation is intact cognition appropriate Extrem: Other: No edema bilaterally Objective Data Active Medications Acetaminophen (Acetaminophen 325 Mg Tablet) 650 mg PO Q6H PRN PRN Reason: Pain, Mild (Pain Scale 1-3) Last Admin: 02/28/23 09:58 Dose: 650 mg Documented By: GHANSHYAM Clonazepam (Clonazepam 0.5 Mg Tablet) 0.5 mg PO DAILY PRN PRN Reason: anxiety Last Admin: 02/28/23 02:09 Dose: 0.5 mg Documented By: NATHALY Enoxaparin Sodium (Enoxaparin Sodium 40 Mg/0.4 Ml Syringe) 40 mg SUBCUT Q24H [facility] Last Admin: 02/28/23 10:34 Dose: 40 mg Documented By: GHANSHYAM Piperacillin Sod/Tazobactam (Sod 4.5 gm/ Sodium Chloride) 100 mls @ 200 mls/hr IV Q6H [facility] Last Infusion: 02/28/23 10:35 Dose: 0 mls/hr Documented By: GHANSHYAM Morphine Sulfate (Morphine Sulfate 4 Mg/Ml Cartridge) 4 mg IVPUSH Q4H PRN; Protocol PRN Reason: Pain, Severe (Pain Scale 7-10) Last Admin: 02/28/23 04:42 Dose: 4 mg Documented By: NATHALY Oxymetazoline HCl (Oxymetazoline Hcl 0.05 % Nasal 15 Ml [place]) 1 spray NOSTRIL- B BID PRN PRN Reason: Congestion Pharmacy Consult (Consult Rx Perform Med Rec) 1 each MISCELLANE ONCE PRN PRN Reason: Consult order Sodium Chloride (0.9 % Sodium Chloride Flush 3 Ml Syringe) 3 ml IVFLUSH QSHIFT [facility] Last Admin: 02/28/23 09:58 Dose: 3 ml Documented By: GHANSHYAM Trazodone HCl (Trazodone Hcl 50 Mg Tablet) 50 mg PO BEDTIME [facility] Last Admin: 02/27/23 21:59 Dose: 50 mg Documented By: NATHALY Venlafaxine HCl (Venlafaxine Hcl Er 150 Mg Cap.Er.24h) 300 mg PO BEDTIME [facility] Last Admin: 02/27/23 21:59 Dose: 300 mg Documented By: NATHALY Labs 02/28/23 05:48 02/28/23 05:48 Labs: Laboratory Results - last 24 hr 02/28/23 02/28/23 05:48 05:48 MCV 92.7 MCH 30.4 MCHC 32.7 RDW 12.8 Plt Count 304 MPV 10.4 Immature Gran % (Auto) 0.3 Neut % (Auto) 63.3 Lymph % (Auto) 23.7 [place] % (Auto) 8.4 Eos % (Auto) 3.8 Baso % (Auto) 0.5 Lymph # (Auto) 2.2 [place] # (Auto) 0.8 Eos # (Auto) 0.4 Baso # (Auto) 0.1 Abs Immat Gran (auto) 0.03 Absolute Neuts (auto) 5.9 Absolute Nucleated RBC 0.000 Nucleated RBC % (auto) 0.0 Anion Gap 11 L Estim Creat Clear Calc 70.9 Estimated GFR > 60 Fasting Glucose 108 H Calcium 9.3 Total Bilirubin 1.0 AST 16 ALT 19 Alkaline Phosphatase 65 Total Protein 6.5 Albumin 3.6 Microbiology Microbiology Results: Microbiology 02/27/23 08:16 Blood Culture - Preliminary Blood - Venous No growth after 24 hours. 02/27/23 08:16 Blood Culture - Preliminary Blood - Venous No growth after 24 hours. Assessment and Plan (1) Diverticulitis: Status: Acute (2) Anxiety: Status: Acute Plan 52-year-old female with known history of diverticulosis presents with 2 days of worsening left upper quadrant pain and nausea consistent with past diverticulitis episodes. Subsequent CT correlates with physical exam showing acute diverticulitis within the splenic fracture. No perforation or abscess. Essentially no change overnight 1 Diverticulitis -Zosyn(2) -IV morphine for pain management; add oral oxycodone as appropriate -advance to full liquid diet .... Hopefully advance to regular in the morning 2. Anxiety -control at present -continue outpatient therapies Full code Lovenox Patient will require ongoing hospitalization for IV antibiotics to treat diverticulitis Time Spent With Patient Time: Total time managing care of this patient today ____ minutes. Quality Stroke Does the patient have a stroke diagnosis?: No VTE Prior VTE?: No VTE Risk Level:: Medical - moderate - high VTE Device Contraindication: Treatment Not Indicated VTE Drug Contraindication: N/A - Med Ordered
--- NOTE | 2023-02-28 11:01 | MHC.CM.PN ---
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
[2023-02-28 16:00] VITALS: BP 111/75; PULSE 76; RESP 18; TEMP 36.6; O2SAT 96
[2023-02-28] MEDS: oxyCODONE HCl Immed Release 5 MG TABLET PO ×2 (16:10→21:01)
[2023-02-28 19:26] VITALS: BP 131/81; PULSE 75; RESP 16; TEMP 36.1; O2SAT 99
[2023-02-28] MEDS: Venlafaxine HCl ER 150 MG CAP.ER.24H 300 MG PO (20:55)
[2023-02-28] MEDS: traZODone HCL 50 MG TABLET PO (20:55)
[2023-03-01 03:52] VITALS: BP 119/83; PULSE 70; RESP 16; TEMP 36.3; O2SAT 98
[2023-03-01] MEDS: Piperacillin Sodium/Tazobactam 4.5 GM in 0.9 % Sodium Chloride 100 ML IV ×4 (04:24→21:30)
[2023-03-01] MEDS: oxyCODONE HCl Immed Release 5 MG TABLET PO (04:27)
[2023-03-01 07:24] VITALS: BP 123/82; PULSE 67; RESP 16; TEMP 36.5; O2SAT 95
[2023-03-01] MEDS: 0.9 % Sodium Chloride Flush 3 ML SYRINGE IVFLUSH ×3 (08:12→21:54)
[2023-03-01] MEDS: Acetaminophen 325 MG TABLET 650 MG PO ×2 (08:16→15:55)
[2023-03-01] MEDS: ondansetron HCL 4 MG/2 ML VIAL IVPUSH (09:25)
[2023-03-01] MEDS: Enoxaparin Sodium 40 MG/0.4 ML SYRINGE SUBCUT (10:32)
--- NOTE | 2023-03-01 12:53 | HO.PM.IMPN ---
Subjective Subjective Date of Service: 03/01/23 Interval History: abd pain improving some nausea Review of Systems Review of Systems: Yes all other systems are reviewed and are negative Physical Exam Vital Signs: Vital Signs: Last Vital Signs Temp 97.7 F 03/01/23 07:24 Pulse 67 03/01/23 07:24 Resp 16 03/01/23 07:24 BP 123/82 03/01/23 07:24 Pulse Ox 95 03/01/23 07:24 O2 Del Method Room Air 03/01/23 07:24 BMI result Body Mass Index 32.8 Gen: in no acute distress HEENT: sclera anicteric, moist mucus membranes Neck: supple Lungs: clear to auscultation bilaterally Heart: regular rate and rhythm, no murmurs Abd: soft, LUQ tenderness without rebound, non-distended Ext: no edema Skin: warm/well-perfused Neuro: alert and oriented x3, no focal findings Psych: appropriate affect Objective Data Active Medications Acetaminophen (Acetaminophen 325 Mg Tablet) 650 mg PO Q6H PRN PRN Reason: Pain, Mild (Pain Scale 1-3) Last Admin: 03/01/23 08:16 Dose: 650 mg Documented By: JUAN A Clonazepam (Clonazepam 0.5 Mg Tablet) 0.5 mg PO DAILY PRN PRN Reason: anxiety Last Admin: 02/28/23 02:09 Dose: 0.5 mg Documented By: NATHALY Enoxaparin Sodium (Enoxaparin Sodium 40 Mg/0.4 Ml Syringe) 40 mg SUBCUT Q24H [facility] Last Admin: 03/01/23 10:32 Dose: 40 mg Documented By: JUAN A Piperacillin Sod/Tazobactam (Sod 4.5 gm/ Sodium Chloride) 100 mls @ 200 mls/hr IV Q6H [facility] Last Infusion: 03/01/23 11:43 Dose: 0 mls/hr Documented By: JUAN A Morphine Sulfate (Morphine Sulfate 4 Mg/Ml Cartridge) 4 mg IVPUSH Q4H PRN; Protocol PRN Reason: Pain, Severe (Pain Scale 7-10) Last Admin: 02/28/23 04:42 Dose: 4 mg Documented By: NATHALY Ondansetron HCl (Ondansetron Hcl 4 Mg/2 Ml Vial) 4 mg IVPUSH Q4H PRN PRN Reason: n/v Last Admin: 03/01/23 09:25 Dose: 4 mg Documented By: JUAN A Oxycodone HCl (Oxycodone Hcl Immed Release 5 Mg Tablet) 5 mg PO Q4H PRN PRN Reason: Pain, Moderate(Pain Scale 4-6) Last Admin: 03/01/23 04:27 Dose: 5 mg Documented By: SERENE Oxymetazoline HCl (Oxymetazoline Hcl 0.05 % Nasal 15 Ml [place]) 1 spray NOSTRIL-B BID PRN PRN Reason: Congestion Pharmacy Consult (Consult Rx Perform Med Rec) 1 each MISCELLANE ONCE PRN PRN Reason: Consult order Sodium Chloride (0.9 % Sodium Chloride Flush 3 Ml Syringe) 3 ml IVFLUSH QSHIFT [facility] Last Admin: 03/01/23 08:12 Dose: 3 ml Documented By: JUAN A Trazodone HCl (Trazodone Hcl 50 Mg Tablet) 50 mg PO BEDTIME [facility] Last Admin: 02/28/23 20:55 Dose: 50 mg Documented By: SERENE Venlafaxine HCl (Venlafaxine Hcl Er 150 Mg Cap.Er.24h) 300 mg PO BEDTIME [facility] Last Admin: 02/28/23 20:55 Dose: 300 mg Documented By: SERENE Labs 02/28/23 05:48 02/28/23 05:48 Microbiology Microbiology Results: Microbiology 02/27/23 08:16 Blood Culture - Preliminary Blood - Venous No growth after 48 hours. 02/27/23 08:16 Blood Culture - Preliminary Blood - Venous No growth after 48 hours. 02/27/23 Unknown Urine Culture - Final Urine clean catch - Clean Catch Midstream Assessment and Plan (1) Diverticulitis: Status: Acute (2) Anxiety: Status: Acute Plan d#3 52yo F with diverticulosis, prior diverticulitis presenting with 2d of LUQ pain and nausea, found to have acute diverticulitis at splenic flexure without perforation or abscess # acute diverticulitis - d#3 pip-gwendolyn, anticipate eventual transition to amox-clav PO upon discharge home - trial of advancing diet # mood disorder - continue trazodone, venlafaxine, clonazepam # VTE ppx: LMWH # dispo: anticipate home likely tomorrow In my clinical judgment, the patient requires continued inpatient hospitalization for the following reasons: IV ABX Time Spent With Patient Time: Total time managing care of this patient today ___35_ minutes. Quality Stroke Does the patient have a stroke diagnosis?: No VTE Prior VTE?: No VTE Risk Level:: Medical - moderate - high VTE Device Contraindication: Treatment Not Indicated VTE Drug Contraindication: N/A - Med Ordered
[2023-03-01 15:24] VITALS: BP 139/75; PULSE 78; RESP 18; TEMP 36.7; O2SAT 97
[2023-03-01] MEDS: Butalb/Acetamin/Caff 50/325/40 TABLET 1 TAB PO (16:06)
[2023-03-01] MEDS: Fluticasone Propionate Nasal 16 GM SPRAY 1 SPRAY NOSTRIL-B (18:45)
[2023-03-01 19:58] VITALS: BP 130/82; PULSE 74; RESP 16; TEMP 36; O2SAT 94
[2023-03-01] MEDS: Venlafaxine HCl ER 150 MG CAP.ER.24H 300 MG PO (21:20)
[2023-03-01] MEDS: traZODone HCL 50 MG TABLET PO (21:21)
[2023-03-02 03:51] VITALS: BP 131/80; PULSE 73; RESP 18; TEMP 36.2; O2SAT 94
[2023-03-02] MEDS: Piperacillin Sodium/Tazobactam 4.5 GM in 0.9 % Sodium Chloride 100 ML IV ×2 (04:04→10:37)
[2023-03-02 07:35] VITALS: BP 147/76; PULSE 78; RESP 18; TEMP 36.4; O2SAT 98
[2023-03-02] MEDS: 0.9 % Sodium Chloride Flush 3 ML SYRINGE IVFLUSH (08:39)
[2023-03-02] MEDS: Enoxaparin Sodium 40 MG/0.4 ML SYRINGE SUBCUT (10:37)
--- NOTE | 2023-03-02 11:32 | MHC.CM.PN ---
Per MD rounds discharge patient today. She is discharged to home self care. She will self transport. Her car is in the lot.
--- NOTE | 2023-03-02 12:09 | P.DS_ITS ---
DS: Providers Provider Date of Service: 03/02/23 Date of admission: 02/27/23 11:09 Date of discharge: 03/02/23 Primary care physician: Aleisha Ruby MD DS: Diagnosis Discharge Diagnosis (1) Diverticulitis: Status: Acute DS: Summary Hospital Course Hospital Course: from admission H+P by hospitalist Madhav Souza DO, 02/27/23: 52-year-old female with known history of diverticulosis presents with approximately 2 days of left-sided abdominal pain started out as a dull ache and progressed.? She states her pain radiates to her back and she feels pressure in her rectum.? She denies vomiting but admits nausea.? She denies fever chills 52yo F with diverticulosis, prior diverticulitis presenting with 2d of LUQ pain and nausea, found to have acute diverticulitis at splenic flexure without perforation or abscess. Admitted to the medical-surgical floor and treated with bowel rest and IV piperacillin-tazobactam. Symptoms improved and her diet was advanced. She was discharged on 7 days of oral amoxicillin-clavaulanate. Time Spent with Patient Time attestation: Total time managing care of this patient today __35_ minutes. Discharge coordination time: Greater than 30 minutes Quality: Safe Use of Opioids Does Pt have an Active Cancer Diagnosis on the Problem List?: No Quality: Stroke Does the patient have a stroke diagnosis?: No Physical Exam Vital Signs: Vital Signs: Last Vital Signs Temp 97.5 F 03/02/23 07:35 Pulse 78 03/02/23 07:35 Resp 18 03/02/23 07:35 BP 147/76 H 03/02/23 07:35 Pulse Ox 98 03/02/23 07:35 O2 Del Method Room Air 03/02/23 07:35 BMI result Body Mass Index 32.8 Gen: in no acute distress HEENT: sclera anicteric, moist mucus membranes Neck: supple Lungs: clear to auscultation bilaterally Heart: regular rate and rhythm, no murmurs Abd: soft, very mild LUQ tenderness, non-distended Ext: no edema Skin: warm/well-perfused Neuro: alert and oriented x3, no focal findings Psych: appropriate affect DS: Data Data Completed and Pending Completed studies during hospitalization [Text1]: Laboratory Results WBC 9.4 X10*3/uL (4.8-10.8) 02/28/23 05:48 RBC 4.25 X10*6/uL (4.20-5.50) 02/28/23 05:48 Hgb 12.9 g/dl (12.0-16.0) 02/28/23 05:48 Hct 39.4 % (37.0-47.0) 02/28/23 05:48 MCV 92.7 fL (80.0-98.0) 02/28/23 05:48 MCH 30.4 pg (27.0-33.0) 02/28/23 05:48 MCHC 32.7 g/dl (31.0-35.0) 02/28/23 05:48 RDW 12.8 % (11.0-16.0) 02/28/23 05:48 Plt Count 304 X10*3/uL (160-400) 02/28/23 05:48 MPV 10.4 fL (9.4-12.3) 02/28/23 05:48 Immature Gran % (Auto) 0.3 % (0.0-0.4) 02/28/23 05:48 Neut % (Auto) 63.3 % (45-73) 02/28/23 05:48 Lymph % (Auto) 23.7 % (20-40) 02/28/23 05:48 [place] % (Auto) 8.4 % (2-11) 02/28/23 05:48 Eos % (Auto) 3.8 % (0-4) 02/28/23 05:48 Baso % (Auto) 0.5 % (0-2) 02/28/23 05:48 Lymph # (Auto) 2.2 X10*3/uL (1.2-4.9) 02/28/23 05:48 [place] # (Auto) 0.8 X10*3/uL (0.1-1.2) 02/28/23 05:48 Eos # (Auto) 0.4 X10*3/uL (0.0-0.4) 02/28/23 05:48 Baso # (Auto) 0.1 X10*3/uL (0.0-0.2) 02/28/23 05:48 Abs Immat Gran (auto) 0.03 X10*3/uL (0.00-0.03) 02/28/23 05:48 Absolute Neuts (auto) 5.9 x10*3/uL (2.0-8.3) 02/28/23 05:48 Absolute Nucleated RBC 0.000 X10*3/uL (0.0-0.012) 02/28/23 05:48 Nucleated RBC % (auto) 0.0 /100WBC (0.0-0.2) 02/28/23 05:48 Sodium 140 mmol/L (135-145) 02/28/23 05:48 Potassium 4.0 mmol/L (3.3-5.1) 02/28/23 05:48 Chloride 103 mmol/L (96-108) 02/28/23 05:48 Carbon Dioxide 30 mmol/L (22-29) H 02/28/23 05:48 Anion Gap 11 (12-20) L 02/28/23 05:48 BUN 10 mg/dL (9-16) 02/28/23 05:48 Creatinine 0.93 mg/dL (0.5-1.4) 02/28/23 05:48 Estim Creat Clear Calc 70.9 02/28/23 05:48 Estimated GFR > 60 02/28/23 05:48 Random Glucose 122 mg/dL (60-115) H 02/27/23 05:38 Fasting Glucose 108 mg/dL (60-99) H 02/28/23 05:48 Lactic Acid 0.6 mmol/L (0.5-2.0) 02/27/23 08:16 Calcium 9.3 mg/dL (8.4-10.2) 02/28/23 05:48 Total Bilirubin 1.0 mg/dL (0.0-1.0) 02/28/23 05:48 Direct Bilirubin 0.2 mg/dL (0.0-0.5) 02/27/23 05:38 AST 16 U/L (5-31) 02/28/23 05:48 ALT 19 U/L (0-31) 02/28/23 05:48 Alkaline Phosphatase 65 U/L (39-117) 02/28/23 05:48 Troponin I High Sens < 2.7 ng/L (<3.5-17.0) 02/27/23 05:38 Total Protein 6.5 g/dL (6.5-8.0) 02/28/23 05:48 Albumin 3.6 g/dL (3.5-5.0) 02/28/23 05:48 Lipase 13 U/L (8-78) 02/27/23 05:38 Urine Color Yellow 02/27/23 08:16 Urine Appearance Clear 02/27/23 08:16 Urine pH 5.5 (5.0-9.0) 02/27/23 08:16 Ur Specific [place] 1.010 (1.005-1.025) 02/27/23 08:16 Urine Protein Negative mg/dL (Neg-Trace) 02/27/23 08:16 Urine Glucose (UA) Negative mg/dL (Negative) 02/27/23 08:16 Urine Ketones Negative mg/dL (Negative) 02/27/23 08:16 Urine Blood Small (1+) (Negative) H 02/27/23 08:16 Urine Nitrite Negative (Negative) 02/27/23 08:16 Ur Leukocyte Esterase Moderate (2+) (Negative) H 02/27/23 08:16 Urine RBC 0-2 /HPF (0-2) 02/27/23 08:16 Urine WBC 11-20 /HPF (0-5) H 02/27/23 08:16 Ur Squamous Epith Cells 6-10 /HPF (0-2) 02/27/23 08:16 Urine Bacteria Trace (None Seen) 02/27/23 08:16 Hyaline Casts 0-2 /LPF (0-2) 02/27/23 08:16 Urine Test NEGATIVE (NEGATIVE) 02/27/23 08:16 Impressions Abdomen/Pelvis CT 02/27/23 08:05 IMPRESSION: 1. Acute diverticulitis within the splenic flexure. No evidence of perforation or abscess formation. 2. Hepatic steatosis. No hepatic parenchymal lesion or biliary ductal dilatation. 3. Additional chronic findings are unchanged. Fleischner guidelines were followed. Discharge Plan Discharge Anticipated Discharge Date/Time: 03/02/23 12:06 Patient Disposition: Home, Self-Care Discharge Diagnosis: acute diverticulitis Referrals: Aleisha Ruby MD [Primary Care Provider] - 1 Week Discharge Medications: New amoxicillin-pot clavulanate 875-125 mg tablet 1 tab PO BID Qty: 14 0RF Continued clotrimazole-betamethasone 1-0.05 % cream 1 appl topical BID PRN (Reason: Rash) oxymetazoline [Afrin (oxymetazoline)] 0.05 % [place],Non-Aerosol 1 spray INTRANASAL BID PRN (Reason: Congestion) trazodone 50 mg tablet 50 mg PO BEDTIME venlafaxine 150 mg capsule,extended release 24hr 300 mg PO BEDTIME clonazepam 0.5 mg tablet 0.5 mg PO DAILY PRN (Reason: anxiety) Discharge Orders: Discharge Order (Routine); Ordered 03/02/23 Ordered By: Jose Marquez Diet: Advance to usual diet Activity on Discharge: As tolerated Stand Alone Forms: Patient Portal Discharge page Care Plan Goals: resolution of diverticulitis Health Concerns: acute diverticulitis Plan of Treatment: amoxicillin-clavulanate 875-125 mg twice daily x 7 days gradually advance diet Please follow up with your primary care doctor within 1 week. Return to the hospital if you experience recurrent or worsening symptoms. Next colonoscopy in 2024 as previously recommended Assessment: See Discharge Summary.
== END 2023-03-02 12:40 | disposition home or self-care (01) | DRG 244 ==
LOC: HO.ED 10:37 → HO.EDOVER 11:14 → HO.S3 16:24
PROVIDERS: Admitting Provider Hospitalist; Emergency Provider Emergency Medicine; PCP Internal Medicine; Visit Provider Family Medicine
DX: K57.32 Diverticulitis of large intestine without perforation or abscess without bleeding (principal); F41.9 Anxiety disorder, unspecified; Z79.899 Other long term (current) drug therapy
CPT/HCPCS: 36415; 74176; 80048; 80053; 80076; 81001; 81025; 83605; 83690; 84484; 85025; 87040; 87086; 99285; J1650; J2270; J2405; J2543

== ENCOUNTER 2023-05-12 11:02 | Outpatient (AMB) | payer BC, SELFPAY ==
[2023-05-12 11:20] VITALS: BP 126/100; PULSE 84; O2SAT 97; BMI 32.6
--- NOTE | 2023-05-12 11:20 | A.OFFPC_ITS ---
Vital Signs 05/12/23 11:20 Height 5 ft 3 in Weight 184 lb BMI 32.6 BP 126/100 H Blood Pressure Location Lt brachial Position Sitting Pulse 84 Pulse Source Pulse Oximeter Pulse Oximetry (%) 97 Oxygen Delivery Method Room Air Intake Visit Reasons: PE Intake Note: Pt is here today for PE. Allergies paroxetine [From PAXIL] Allergy (Intermediate, Verified 05/12/23 11:22) RASH FACE/NECK adhesive [ADHESIVE] Allergy (Mild, Verified 05/12/23 11:22) BLISTERS adhesives, tape Allergy (Unknown, Uncoded 05/12/23 11:22) blisters Medication List - Last Reconciled 05/12/23 by Aleisha Ruby MD clonazepam 0.5 mg PO DAILY PRN clotrimazole-betamethasone 1-0.05 % 1 appl topical BID PRN oxymetazoline 0.05% (Afrin (oxymetazoline)) 1 spray intranasal BID PRN trazodone 50 mg PO BEDTIME venlafaxine ER 150 mg PO BID Tobacco use date assessed: 05/12/23 Dental Screening Dental Screen Date: 05/12/23 Did you have a dental visit in the last 12 months?: Yes Did you have a dental problem in the last 6 months where you did not have access to dental care?: No Was dental information given to patient?: Patient has dentist HPI PE HPI Details Pt presents for PE. PFSH Medical History Abnormal colonoscopy Annual physical exam Anxiety Diverticulosis Insomnia Mammogram normal Normal Pap smear Family History Mother Hypertension Thyroid disorder Father Diverticulitis Maternal Grandmother Thyroid disorder Social History Household Members: Children Household Members Other:: 14 years daughter, works in will be retired in July Housing: Apartment Do you presently have visiting nurse or other home services: No Alcohol intake: never Patient Tobacco Use Status: Never used Tobacco Second Hand Smoke Exposure: No service: Yes Current occupational status: employed Cognitive needs: No Hearing needs: No Vision needs: Yes Questionnaire PHQ-9 Over the last 2 weeks, how often have you been bothered by any of the following problems? 1. Little interest or pleasure in doing things: not at all 2. Feeling down, depressed, or hopeless: not at all 3. Trouble falling or staying asleep, or sleeping too much: more than half the days 4. Feeling tired or having little energy: nearly every day 5. Poor appetite or overeating: not at all 6. Feeling bad about yourself - or that you are a failure or have let yourself or your family down: not at all 7. Trouble concentrating on things, such as reading the newspaper or watching television: not at all 8. Moving or speaking so slowly that other people could have noticed. Or the opposite - being so fidgety or restless that you have been moving around a lot more than usual: several days 9. Thoughts that you would be better off or of hurting yourself in some way: not at all Total score: 6 Depression Screening Interpretation: Negative Source: Developed by Drs. Denzel Marie, Sugar Jewell, Florentin Medeiros and colleagues, with an educational andrea from [employer]. Thrive Questionnaire Date Thrive assessed: 02/28/23 AUDIT C Alcohol Use Questionnaire (AUDIT-C) 1. How often do you have a drink containing alcohol?: Monthly or less 2. How many drinks containing alcohol do you have on a typical day when you are drinking?: 1 or 2 3. How often do you have six or more drinks on one occasion?: Never Total Score: 1 SHELLIE-7 AMB Questionnaire SHELLIE-7 Date SHELLIE - 7 assessed: 05/12/23 Feeling nervous, anxious, or on edge: 1 = Several days Not being able to stop or control worryin = Not at all Worrying too much about different things: 0 = Not at all Trouble relaxin = Not at all Being so restless that it is hard to sit still: 1 = Several days Becoming easily annoyed or irritable: 1 = Several days Feeling afraid as if something awful might happen: 0 = Not at all Total SHELLIE-7 score (0-4 normal; 5-9 mild; 10-14 moderate; 15-21 severe): 3 Source: Developed by Drs. Denzel Marie, Sugar Jewell, Florentin Medeiros and colleagues, with an educational andrea from [employer]. Review of Systems Const All systems reviewed & are unremarkable except as noted in HPI and below Reports no additional complaints Eyes Reports no additional complaints ENT Reports no additional complaints Card Reports no additional complaints Resp Reports no additional complaints GI Reports no additional complaints Reports no additional complaints Physical exam (Primary Care) Vital Signs: Last Vital Signs Pulse 84 05/12/23 11:20 BP 126/100 H 05/12/23 11:20 Pulse Ox 97 05/12/23 11:20 Oxygen Delivery Method Room Air 05/12/23 11:20 BMI result Body Mass Index 32.6 Tobacco/Smoking Status: Tobacco use Status Tobacco use date assessed 05/12/23 05/12/23 11:26 Patient Tobacco Use Status Never used Tobacco 05/12/23 11:26 PHQ-9: PHQ-9 Score PHQ-9: Total score 6 05/12/23 11:29 Depression Screening Interpretation: Negative Thrive Assessment: Date of Thrive Assessment Date Thrive assessed 02/28/23 05/12/23 11:26 Const General: no acute distress HENMT Head: Yes normal to inspection Ears: hearing grossly normal bilaterally General nose exam: Normal external nose present Face and sinus: Yes normal facial exam Mouth: Normal oral and palatal mucosa present Throat: Yes posterior oropharynx normal Eyes General: appearance normal, both eyes and all related structures Pupils: Equal, round and reactive pupils present Neck Neck: Yes no lymphadenopathy and Yes supple Resp Effort & Inspection: normal respiratory effort Auscultation: clear to auscultation bilaterally Cardio Rhythm: regular rhythm Heart sounds: S1 normal heart sound present and S2 normal heart sound present GI Inspection: Yes normal to inspection Palpation (GI): Soft to palpation Percussion: Yes normal to percussion Auscultation: normal bowel sounds Neuro Cranial nerves: Yes Equal, round and reactive pupils present Assessment and Plan Assessment & Plan (1) Annual physical exam: Code(s): Z00.00 - Encounter for general adult medical examination without abnormal findings Plan: WELL-BALANCED REGULAR PHYSICAL ACTIVITY DISCUSSED WITH THE PATIENT. SHE WILL RETURN FOR FASTING BLOOD WORK. PATIENT IS UP-TO-DATE WITH MAMMOGRAM COLONOSCOPY AND PAP SMEAR BY [facility] (2) Hyperlipidemia: Code(s): E78.5 - Hyperlipidemia, unspecified Plan: Low-cholesterol diet increase physical activity discussed with the patient. she will return for fasting blood work Orders: Orders Comprehensive [place]. Panel Fast Today E78.5 - Hyperlipidemia, unspecified, Z00.00 - Encounter for general adult medical examination without abnormal findings Lipid Panel Today E78.5 - Hyperlipidemia, unspecified, Z00.00 - Encounter for general adult medical examination without abnormal findings TSH reflex Free T4 Today E78.5 - Hyperlipidemia, unspecified, Z00.00 - Encounter for general adult medical examination without abnormal findings Medications: Discontinued trazodone 50 mg PO BEDTIME PRN 90 tabs 3RF insomnia venlafaxine ER 150 mg PO BID 180 caps 3RF Coding Level of Care Code Est Pt Prev Care 40-64y(26950) Diagnoses Annual physical exam Z00.00 Hyperlipidemia E78.5
== END 2023-05-12 12:01 | disposition home or self-care (01) ==
PROVIDERS: Visit Provider Internal Medicine
DX: Z00.00 Encounter for general adult medical examination without abnormal findings (principal); E78.5 Hyperlipidemia, unspecified
CPT/HCPCS: 99396

== ENCOUNTER 2023-09-03 08:07 | Outpatient (AMB) | payer BC, SELFPAY ==
--- NOTE | 2023-09-03 08:07 | MHC.OFFWIV ---
Intake Vital Signs 09/03/23 08:10 Height 5 ft 3 in Weight 187 lb 2 oz BMI 33.1 BP 120/76 Blood Pressure Location Rt brachial Position Sitting Pulse 78 Pulse Source Pulse Oximeter Temp 97.9 F Temp Source Oral Pulse Oximetry (%) 98 Oxygen Delivery Method Room Air Intake Visit Reasons: EST/ear pain for 2 weeks (lobby masked) Intake Note: pt is here for c.o right ear pain, 2x weeks Patient Tobacco Use Status: Never used Tobacco Allergies paroxetine [From PAXIL] Allergy (Intermediate, Verified 09/03/23 08:13) RASH FACE/NECK adhesive [ADHESIVE] Allergy (Mild, Verified 09/03/23 08:13) BLISTERS adhesives, tape Allergy (Unknown, Uncoded 05/12/23 11:22) blisters Do you need a note to return to daycare/school/sports/work: Yes HPI HPI Comments History of Present Illness Details She presents to office with R sided ear pain x 2 weeks Constant No L sided pain Pain varies in intensity; movement makes 10/10 No trauma or injury She gets tension in R sided neck which is what it started as but now thinks more ear She tried a massage which helped but ear pain continual No headaches, discharge She had flu like symptoms 2 weeks ago which resolved Minimal cold symptoms again PFSH Medical History Abnormal colonoscopy Annual physical exam Anxiety Diverticulosis Insomnia Mammogram normal Normal Pap smear Family History Mother Hypertension Thyroid disorder Father Diverticulitis Maternal Grandmother Thyroid disorder Social History Household Members: Children Household Members Other:: 14 years daughter, works in [employer] will be retired in July Housing: Apartment Do you presently have visiting nurse or other home services: No Alcohol intake: never Patient Tobacco Use Status: Never used Tobacco Second Hand Smoke Exposure: No service: Yes Current occupational status: employed Cognitive needs: No Hearing needs: No Vision needs: Yes Review of Systems Const Denies body aches, Denies chills, Denies fatigue, Denies fever(s) and Denies headache(s) Eyes Denies blurry vision ENT Denies dizziness, Denies ear discharge, Reports otalgia, Denies facial pain, Denies headache(s), Reports neck pain (R side), Denies sore throat, Denies throat swelling and Denies tongue swelling Card Denies chest pain Resp Denies cough Musc Reports neck pain (R side) and Denies numbness Neuro Denies dizziness, Denies headache(s), Denies focal weakness, Denies numbness and Denies radicular pain Endo Denies fatigue Aller/Immun Denies throat swelling and Denies tongue swelling Physical Exam Vital Signs: Last Vital Signs Temp 97.9 F 09/03/23 08:10 Pulse 78 09/03/23 08:10 BP 120/76 09/03/23 08:10 Pulse Ox 98 09/03/23 08:10 Oxygen Delivery Method Room Air 09/03/23 08:10 BMI result Body Mass Index 33.1 General: Non-toxic, NAD. Speaking full sentences. Skin: Warm dry throughout. No rashes or R side scalp or neck. No periauricular edema or erythema. No mastoid tenderness or erythema Eye: EOMI, PERRL HENT: Airway patent. Uvula midline. No pharyngeal erythema or edema. No LOCKMAKER. Bilateral canals clear. TM non-erythematous, non-bulging. Slight fluid behind R TM. No TM perforation or hemotympanum noted. Lymph: No lymphadenopathy palpated Neck: No Cspine tenderness. + tenderness to palpation along r trapezius muscle near posterior cervical LN chain. Respiratory: CTA bilaterally. No wheezes, rales or rhonchi Cardiac: RRR. No murmur MSK: Full ROM extremities. Neurology: A/O. No aphasia or facial droop. Gait without abnormality Psych: Good mood and affect Assessment & Plan Assessment & Plan (1) Trapezius muscle strain: Code(s): S46.819A - Strain of other muscles, fascia and tendons at shoulder and upper arm level, unspecified arm, initial encounter Qualifiers: Encounter type: initial encounter Laterality: right Qualified Code(s): S46.811A - Strain of other muscles, fascia and tendons at shoulder and upper arm level, right arm, initial encounter Plan Patient seen and evaluated. No OM or OE on exam Discussed No rash consistent with shingles. No mastoid tenerness for mastoiditis. No meningeal concerns on exam as she has full ROM of neck and no c-spine tenderness and vital stable. Warm compress R side and naproxen with food; no alcohol or other nsaid use Patient gave verbal understanding and had no additional questions or concerns at time of discharge All questions answered Medications: New naproxen 500 mg PO BID PRN 14 tabs 0RF pain S46.819A - Strain of other muscles, fascia and tendons at shoulder and upper arm level, unspecified arm, initial encounter Coding Level of Care Code Est Pt Level 3 (01154) Diagnoses Strain of right trapezius muscle, initial encounter S46.811A Encounter type: initial encounter Laterality: right
[2023-09-03 08:10] VITALS: BP 120/76; PULSE 78; TEMP 36.6; O2SAT 98; BMI 33.1
== END 2023-09-03 08:59 | disposition home or self-care (01) ==
PROVIDERS: PCP Internal Medicine; Visit Provider Physician Assistant
DX: S46.811A Strain of other muscles, fascia and tendons at shoulder and upper arm level, right arm, initial encounter (principal)
CPT/HCPCS: 99213

== ENCOUNTER 2023-09-03 08:33 | Outpatient (REF) | payer BC, SELFPAY ==
[2023-09-03 12:10] LABS: Alanine Aminotransferase 32 U/L (0-31); Albumin Level 4.3 g/dL (3.5-5.0); Alkaline Phosphatase 85 U/L (39-117); Anion Gap 13 (12-20); Aspartate Amino Transferase 24 U/L (5-31); Bilirubin Total 0.3 mg/dL (0.0-1.0); Blood Urea Nitrogen 16 mg/dL (9-16); Calcium 9.4 mg/dL (8.4-10.2); Carbon Dioxide 25 mmol/L (22-29); Chloride 105 mmol/L (96-108); Cholesterol 240 mg/dL (<200); Estimated Glomerular Filt Rate > 60; Glucose Fasting 113 mg/dL (60-99); HDL Cholesterol 37 mg/dL (>40); LDL Cholesterol Calculated 141 mg/dL (<100); Sodium 139 mmol/L (135-145); Total Protein 7.8 g/dL (6.5-8.0); Triglycerides 313 mg/dL (<150)
[2023-09-03 12:30] LABS: TSH reflex Free T4 1.89 uIU/mL (0.32-4.0)
== END 2023-09-03 08:34 | disposition home or self-care (01) ==
LOC: HO.HMGCLDS 08:33
PROVIDERS: PCP Internal Medicine; Visit Provider Internal Medicine
DX: Z00.00 Encounter for general adult medical examination without abnormal findings (principal); E78.5 Hyperlipidemia, unspecified
CPT/HCPCS: 36415; 80053; 80061; 84443

== ENCOUNTER 2023-10-11 11:17 | Inpatient (IN) | payer BC, SELFPAY ==
--- NOTE | ~2023-10-11 | CT_ITS ---
EXAMINATION: CT ABDOMEN AND PELVIS WITH CONTRAST CLINICAL INFORMATION: Follow-up diverticulitis with microperforation COMPARISON: CT abdomen from 10/11/2023 TECHNIQUE: Multidetector volumetric images were obtained from the superior aspect of the liver through the pubic symphysis following administration 85 mL of Omnipaque 350 intravenous contrast. Sagittal and coronal reformatted images were obtained on the technologist's workstation. Oral contrast: No This CT examination was performed using dose optimization techniques as appropriate, variously including the following: *Automated exposure control *Adjustment of mA and/or kV according to patient size (this includes techniques or standardized protocols for targeted exams where dose is matched to indication/reason for exam; i.e. extremities or head) *Use of iterative reconstruction technique DLP: 487 mGy-cm FINDINGS: LUNG BASES: Bibasilar atelectasis versus scarring. No pneumothorax. No large pleural effusion. LIVER, GALLBLADDER, AND BILIARY TREE: Liver is enlarged and demonstrates decreased hepatic attenuation suggesting hepatic steatosis. No focal hepatic lesion or biliary ductal dilatation is present. The gallbladder is unremarkable with no evidence of radiopaque gallstones, gallbladder wall thickening, or obvious pericholecystic inflammatory changes. PANCREAS: Unremarkable. SPLEEN: Unremarkable. ADRENAL GLANDS: Unremarkable. KIDNEYS AND URETERS: Bilateral hypodense renal foci the largest in the posterior aspect of the right renal interpolar region demonstrating fluid attenuation statistically representing cyst measuring up to 1.1 cm, not requiring follow-up. The kidneys are normal in size, shape, and attenuation. No hydronephrosis, hydroureter, or calculi seen. No perinephric stranding. BLADDER: Unremarkable. GASTROINTESTINAL TRACT: Redemonstration of colonic diverticulosis and diverticulitis predominantly involving the descending colon with wall thickening and pericolonic inflammatory changes, slightly improving. No focal collection identified. No free air identified. The small and large bowel are unremarkable. The appendix is unremarkable. ABDOMINAL WALL: No focal development of 1.2 cm radiodensity in the right anterior abdominal wall possibly representing sequela of subcutaneous injections. LYMPH NODES: No enlarged lymph nodes per size criteria. VASCULAR: Splenic artery aneurysm with mild peripheral calcifications measuring up to 15 mm. Abdominal aorta is nonaneurysmal. PELVIC VISCERA: Anteverted uterus. OSSEOUS STRUCTURES: Unremarkable. CT/CT abdomen pelvis w IV con IMPRESSION: 1. Redemonstration of colonic diverticulosis and diverticulitis predominantly involving the descending colon with wall thickening and pericolonic inflammatory changes, slightly improving. No focal collection identified. No free air identified. 2. Liver is enlarged and demonstrates decreased hepatic attenuation suggesting hepatic steatosis. 3. Splenic artery aneurysm with mild peripheral calcifications measuring up to 15 mm. 4. Bilateral hypodense renal foci the largest in the posterior aspect of the right renal interpolar region demonstrating fluid attenuation statistically representing cyst measuring up to 1.1 cm, not requiring follow-up. 5. Interval development of 1.2 cm radiodensity in the right anterior abdominal wall possibly representing sequela of subcutaneous injections.
--- NOTE | ~2023-10-11 | CT_ITS ---
EXAMINATION: CT ABDOMEN AND PELVIS WITHOUT CONTRAST CLINICAL INFORMATION: Left flank pain COMPARISON: 02/27/2023 TECHNIQUE: Multidetector volumetric imaging was performed from the superior aspect of the liver through the pubic symphysis. Sagittal and coronal reformatted images were obtained on the technologist's workstation. This CT examination was performed using dose optimization techniques as appropriate, variously including the following: *Automated exposure control *Adjustment of mA and/or kV according to patient size (this includes techniques or standardized protocols for targeted exams where dose is matched to indication/reason for exam; i.e. extremities or head) *Use of iterative reconstruction technique DLP: 593 mGy-cm FINDINGS: LUNG BASES: The visualized lung bases are unremarkable. LIVER, GALLBLADDER, AND BILIARY TREE: Liver is heterogeneous due to hepatic steatosis. The gallbladder is unremarkable with no evidence of radiopaque gallstones, gallbladder wall thickening, or obvious pericholecystic inflammatory changes. PANCREAS: Unremarkable. SPLEEN: Unremarkable. ADRENAL GLANDS: There is stable partially peripherally calcified left adrenal gland nodule, measured approximately 1.5 cm with attenuation of 28 HU, most likely adenoma. KIDNEYS AND URETERS: The kidneys are normal in size, shape, and attenuation. No hydronephrosis, hydroureter, or calculi seen. No perinephric stranding. BLADDER: Unremarkable. GASTROINTESTINAL TRACT: Stomach is decompressed. There are changes of colonic diverticulosis more prominent in the medial portion of descending colon, descending colon is thickened, surrounded by haziness of mesentery, consistent with acute diverticulitis. No obvious abscess formation seen. There is microperforation, as seen on images 39, 46, 39, series 3. Normal appendix visualized. Loops of small bowel are unremarkable. ABDOMINAL WALL: No significant hernia is appreciated. LYMPH NODES: Normal. VASCULAR: Unremarkable. PELVIC VISCERA: Unremarkable. OSSEOUS STRUCTURES: Unremarkable. CT/CT abdomen pelvis wo IV con IMPRESSION: 1. Acute diverticulitis with microperforation. 2. Hepatic steatosis. 3. Stable left adrenal gland adenoma. Fleischner guidelines were followed.
[2023-10-11 12:28] VITALS: BP 155/102; PULSE 103; RESP 18; TEMP 36.9; O2SAT 97; BMI 33.6
--- NOTE | 2023-10-11 12:29 | ED_ITS ---
HPI - General Adult General Chief complaint: Abdominal Pain Stated complaint: L flank pain Time Seen by Provider: 10/11/23 16:11 Source: patient Mode of arrival: ambulatory Limitations: no limitations History of Present Illness HPI narrative: Patient comes to the emergency room complaining of left upper ribs for about 1 month. Patient states that she was seen at an ER in [place] where she was staying for a month, diagnosed with constipation. Patient states that she has been using Metamucil for couple of weeks, having good bowel movements, still having right upper quadrant pain. However, patient states that she was waiting in the ED waiting room, started feeling severe left lower quadrant pain. Patient states that this is the same sensation that she had a few years ago when she had diverticulitis. Patient denies nausea vomiting diarrhea. Related Data Home Medications Medication Instructions Recorded Confirmed oxymetazoline 0.05 % nasal spray 1 spray intranasal BID PRN 02/27/23 10/11/23 (Afrin (oxymetazoline)) Congestion glucosamine-chondroitin 250 mg-200 1 tab PO DAILY 10/11/23 10/11/23 mg tablet (Osteo Bi-Flex) soy isoflavone-black cohosh 1 cap PO DAILY 10/11/23 10/11/23 root-magnolia bark 155 mg capsule (Estroven) venlafaxine 150 mg 300 mg PO BEDTIME 10/11/23 10/11/23 capsule,extended release 24 hr Previous Rx's Medication Instructions Recorded trazodone 50 mg tablet 50 mg PO BEDTIME #90 tabs 05/06/23 Allergies Allergy/AdvReac Type Severity Reaction Status Date / Time paroxetine [From PAXIL] Allergy Intermediate RASH Verified 09/03/23 08:13 FACE/NECK adhesive [ADHESIVE] Allergy Mild BLISTERS Verified 09/03/23 08:13 adhesives, tape Allergy Unknown blisters Uncoded 05/12/23 11:22 Review of Systems 2 Review of Systems: Constitutional : No Weight loss, No Fever, No Chills, No Night Sweats, No Fatigue, No Malaise ENT/Mouth : No Hearing loss, No Ear Pain, No Nasal Congestion, No Sinus Pain, No Hoarseness, No sore throat, No Rhinorrhea, No Swallowing Difficulty Eyes: No Eye Pain, No Swelling, No Redness, No Foreign Body, No Discharge, No Vision Changes Cardiovascular : No Chest Pain, No SOB, No Dyspnea on Exertion, No Orthopnea, No Edema, No Palpitations Respiratory : No Cough, No Sputum, No Wheezing, No Smoke Exposure, No Dyspnea Gastrointestinal : No Nausea, No Vomiting, No Diarrhea, No Constipation, complaining of new onset left lower quadrant pain Genitourinary : no irregular bleeding, No Dysuria, No Urinary Frequency, No Hematuria, No Urinary Incontinence, No Urgency, No Flank Pain, No Urinary Flow Changes, No Hesitancy Musculoskeletal : Complaining of chronic left rib pain No Myalgias, No Joint Swelling Skin : No Skin Lesions, No rash Neuro : No Weakness, No Numbness, No Paresthesias, No Loss of Consciousness, No Dizziness, No Headache Psych : No Anxiety/Panic, No Depression, No SI/HI/AH/VH, No Social Issues, Heme/Lymph: No Bruising, No Bleeding,No Lymphadenopathy Endocrine : No Polyuria, No Polydipsia, No Temperature Intolerance [facility] Past Medical History Medical History Diverticulosis Abnormal colonoscopy Mammogram normal Normal Pap smear Annual physical exam Anxiety Insomnia Family History Family History Mother Hypertension Thyroid disorder Father Diverticulitis Maternal Grandmother Thyroid disorder Social History Social History Household Members: Children Household Members Other:: 14 years daughter, works in will be retired in July Housing: Apartment Do you presently have visiting nurse or other home services: No Alcohol intake: never Patient Tobacco Use Status: Never used Tobacco Smoked in Last 30 Days: No Second Hand Smoke Exposure: No Use of substances other than those prescribed or required for medical reasons: No Advance Directives: No Advance Directives Information Provided: No Patient : No service: Yes Current occupational status: employed Cognitive needs: No Hearing needs: No Vision needs: Yes Physical Exam ED Vital Signs: Vital Signs - 24 hr 10/11/23 12:28 10/11/23 17:15 10/11/23 17:29 Temperature 98.4 F 99.3 F Pulse Rate 103 H 104 H Respiratory Rate 18 14 15 Blood Pressure 155/102 H 142/90 H Pulse Oximetry 97 97 Oxygen Delivery Method Room Air Room Air 10/11/23 18:00 Temperature 97.7 F Pulse Rate 93 Respiratory Rate 16 Blood Pressure 128/85 Pulse Oximetry 98 Oxygen Delivery Method Room Air BMI result Body Mass Index 33.6 Const Other: Appearance: Alert. Oriented X3. No acute distress. Eyes: Pupils equal, round and reactive to light. ENT: Pharynx normal. Neck: Normal inspection. Neck supple. No lymph nodes noted. No crepitus CVS: Normal heart rate and rhythm. Pulses normal. Normal S1 and S2 Respiratory: No respiratory distress. Breath sounds normal. No Wheezing. No rales Abdomen: Soft , tenderness to palpation in left flank and left lower quadrant, also mild pain to palpation over the ribs on the left side laterally Skin: Skin warm and dry. Normal skin color. Normal skin turgor. Extremities: No lower extremity edema. No Lacerations. No Rash Neuro: Oriented X 3. No motor deficit. No sensory deficit. Moving all extremities. No slurred speech. CN 2 through 12 grossly intact Psych: calm, cooperative, normal affect Course Course Course Narrative: This is an RME: Additional HPI, ROS, PE not included below will be deferred to primary provider. This is a [id number], with a hx of diverticulosis, presenting to the emergency department for evaluation of left-sided flank pain and abdominal pain x1 month. Patient reports that she was seen in [place] for similar pain and was told that she had constipation. She states that her pain is persistent. She was also diagnosed with a urinary tract infection, treated with full course of antibiotics which she took without any relief. Patient has left-sided CVA tenderness. No fevers, chills, nausea or vomiting. Plan: Labs, UA 1613 - CT scan revealing diverticulitis with microperforation. I immediately discussed this with the charge nurse and Dr. Kim. Patient will be immediately brought back to the emergency room for further evaluation. Medications Administered Generic Name Dose Route Start Last Admin Trade Name Freq PRN Reason Stop Dose Admin Dextrose/Sodium Chloride 1,000 mls @ 100 mls/hr 10/11/23 17:15 10/11/23 18:34 D5ns IVCONT 100 mls/hr .Q10H ZULAY Administration Piperacillin Sod/Tazobactam 50 mls @ 100 mls/hr 10/12/23 00:00 10/12/23 00:46 Sod 3.375 gm/ Sodium Chloride IV Infused Q6H ZULAY Infusion Morphine Sulfate 3 mg 10/11/23 17:11 10/11/23 21:42 Morphine Sulfate 4 Mg/Ml Cartridge IVPUSH 3 mg Q3H PRN Administration Pain, Severe (Pain Scale 7-10) Protocol Sodium Chloride 3 ml 10/12/23 00:00 10/12/23 00:14 0.9 % Sodium Chloride Flush 3 Ml Syringe IVFLUSH 3 ml QSHIFT ZULAY Administration Trazodone HCl 50 mg 10/11/23 21:00 10/11/23 21:43 Trazodone Hcl 50 Mg Tablet PO 50 mg BEDTIME ZULAY Administration Venlafaxine HCl 300 mg 10/12/23 00:45 10/12/23 01:09 Venlafaxine Hcl Er 150 Mg Cap.Er.24h PO 300 mg BEDTIME ZULAY Administration Discontinued Medications Generic Name Dose Route Start Last Admin Trade Name Freq PRN Reason Stop Dose Admin Acetaminophen 650 mg 10/12/23 00:05 10/12/23 00:14 Acetaminophen 325 Mg Tablet PO 10/12/23 00:06 650 mg ONCE ONE Administration Piperacillin Sod/Tazobactam 50 mls @ 100 mls/hr 10/11/23 16:50 10/11/23 18:49 Sod 3.375 gm/ Sodium Chloride IV 10/11/23 17:19 Infused ONCE ONE Infusion Sodium Chloride 1,000 mls @ 999 mls/hr 10/11/23 16:50 10/11/23 18:35 Ns IVCONT 10/11/23 17:50 Infused .Q1H1M ONE Infusion Morphine Sulfate 4 mg 10/11/23 16:50 10/11/23 17:29 Morphine Sulfate 4 Mg/Ml Cartridge IVPUSH 10/11/23 16:51 4 mg ONCE ONE Administration Protocol Medical Decision Making Medical Decision Making MDM Narrative: My interpretation of labs: White blood cell count 15.4, chemistry unremarkable, LFTs fairly normal, troponin negative, lipase negative -my interpretation of CT scan: Positive for diverticulitis. Radiology report, microperforation present -patient's vitals stable, no hypotension, no tachycardic, sepsis not suspected. Patient getting IV fluids, Zosyn, morphine for pain control -I discussed the above-mentioned with the patient -I also discussed the patient with Dr. Corona from surgery, patient being admitted Differential Diagnosis Differential Diagnoses: The differential diagnosis associated with the presentation includes (Costochondritis, renal colic, ureterolithiasis, diverticulitis) Admission/Observation Consideration of admission/observation: Escalation of care including admission/observation considered Consult Healthcare Provider Management of the patient was discussed with: Improvement Advisor Lab Data MDM Lab Attestation statement: I reviewed the patient's lab results. 10/11/23 13:08 10/11/23 13:08 Labs: Lab Results 10/11/23 10/11/23 Range/Units 13:08 17:11 WBC 15.4 H (4.8-10.8) X10*3/uL RBC 4.69 (4.20-5.50) X10*6/uL Hgb 14.6 (12.0-16.0) g/dl Hct 43.0 (37.0-47.0) % MCV 91.7 (80.0-98.0) fL MCH 31.1 (27.0-33.0) pg MCHC 34.0 (31.0-35.0) g/dl RDW 13.2 (11.0-16.0) % Plt Count 357 (160-400) X10*3/uL MPV 10.2 (9.4-12.3) fL Immature Gran % (Auto) 0.4 (0.0-0.4) % Neut % (Auto) 68.5 (45-73) % Lymph % (Auto) 22.0 (20-40) % [place] % (Auto) 6.1 (2-11) % Eos % (Auto) 2.3 (0-4) % Baso % (Auto) 0.7 (0-2) % Lymph # (Auto) 3.4 (1.2-4.9) X10*3/uL [place] # (Auto) 0.9 (0.1-1.2) X10*3/uL Eos # (Auto) 0.4 (0.0-0.4) X10*3/uL Baso # (Auto) 0.1 (0.0-0.2) X10*3/uL Abs Immat Gran (auto) 0.06 H (0.00-0.03) X10*3/uL Absolute Neuts (auto) 10.5 H (2.0-8.3) x10*3/uL Absolute Nucleated RBC 0.000 (0.0-0.012) X10*3/uL Nucleated RBC % (auto) 0.0 (0.0-0.2) /100WBC Sodium 136 (135-145) mmol/L Potassium 4.2 (3.3-5.1) mmol/L Chloride 103 (96-108) mmol/L Carbon Dioxide 25 (22-29) mmol/L Anion Gap 12 (12-20) BUN 14 (9-16) mg/dL Creatinine 0.85 (0.5-1.4) mg/dL Estim Creat Clear Calc 77.7 Estimated GFR > 60 Random Glucose 97 (60-115) mg/dL Lactic Acid 0.8 (0.5-2.0) mmol/L Calcium 9.6 (8.4-10.2) mg/dL Magnesium 2.1 (1.6-2.6) mg/dL Total Bilirubin 0.3 (0.0-1.0) mg/dL Direct Bilirubin 0.1 (0.0-0.5) mg/dL AST 30 (5-31) U/L ALT 43 H (0-31) U/L Alkaline Phosphatase 81 (39-117) U/L Total Protein 8.0 (6.5-8.0) g/dL Albumin 4.3 (3.5-5.0) g/dL Lipase 20 (8-78) U/L Urine Color Yellow Urine Appearance Clear Urine pH 7.5 (5.0-9.0) Ur Specific [place] 1.010 (1.005-1.025) Urine Protein Negative (Neg-Trace) mg/dL Urine Glucose (UA) Negative (Negative) mg/dL Urine Ketones Negative (Negative) mg/dL Urine Blood Trace H (Negative) Urine Nitrite Negative (Negative) Ur Leukocyte Esterase Negative (Negative) Urine RBC 3-5 H (0-2) /HPF Urine WBC 0-5 (0-5) /HPF Ur Squamous Epith Cells 0-2 (0-2) /HPF Urine Bacteria None Seen (None Seen) Hyaline Casts 0-2 (0-2) /LPF Independent Interpretation I performed an independent interpretation of an: CT Scan Radiology Impression Discussion of test interpretation with radiology: I have reviewed the radiologist's reading. Radiologist Impression: FINDINGS: LUNG BASES: The visualized lung bases are unremarkable. LIVER, GALLBLADDER, AND BILIARY TREE: Liver is heterogeneous due to hepatic steatosis. The gallbladder is unremarkable with no evidence of radiopaque gallstones, gallbladder wall thickening, or obvious pericholecystic inflammatory changes. PANCREAS: Unremarkable. SPLEEN: Unremarkable. ADRENAL GLANDS: There is stable partially peripherally calcified left adrenal gland nodule, measured approximately 1.5 cm with attenuation of 28 HU, most likely adenoma. KIDNEYS AND URETERS: The kidneys are normal in size, shape, and attenuation. No hydronephrosis, hydroureter, or calculi seen. No perinephric stranding. BLADDER: Unremarkable. GASTROINTESTINAL TRACT: Stomach is decompressed. There are changes of colonic diverticulosis more prominent in the medial portion of descending colon, descending colon is thickened, surrounded by haziness of mesentery, consistent with acute diverticulitis. No obvious abscess formation seen. There is microperforation, as seen on images 39, 46, 39, series 3. Normal appendix visualized. Loops of small bowel are unremarkable. ABDOMINAL WALL: No significant hernia is appreciated. LYMPH NODES: Normal. VASCULAR: Unremarkable. PELVIC VISCERA: Unremarkable. OSSEOUS STRUCTURES: Unremarkable. CT/CT abdomen pelvis wo IV con IMPRESSION: 1. Acute diverticulitis with microperforation. 2. Hepatic steatosis. 3. Stable left adrenal gland adenoma. Fleischner guidelines were followed. Critical Care Time Critical Care Time Critical Care Time: Yes Total Critical Care Time: 75 Attestation: I have personally provided critical care time. Time includes review of lab data, radiology results, discussion with consultants, and monitoring for potential decompensation. Intervention performed as documented. Discharge Plan Discharge Clinical Impression: Diverticulitis of colon with perforation Patient Disposition: Admitted As Inpatient
[2023-10-11 13:13] LABS: MANUAL DIFF FLAG NO
[2023-10-11 13:18] LABS: Basophils Absolute Auto 0.1 X10*3/uL (0.0-0.2); Basophils Percent Auto 0.7 % (0-2); Eosinophils Absolute Auto 0.4 X10*3/uL (0.0-0.4); Eosinophils Percent Auto 2.3 % (0-4); Hemoglobin 14.6 g/dl (12.0-16.0); Imm Gran Abs Auto 0.06 X10*3/uL (0.00-0.03); Imm Gran Pct Auto 0.4 % (0.0-0.4); Lymphocytes Absolute Auto 3.4 X10*3/uL (1.2-4.9); Mean Corpuscular Hemoglobin 31.1 pg (27.0-33.0); Mean Corpuscular Volume 91.7 fL (80.0-98.0); Mean Platelet Volume 10.2 fL (9.4-12.3); Monocytes Absolute Auto 0.9 X10*3/uL (0.1-1.2); Monocytes Percent Auto 6.1 % (2-11); Neutrophils Absolute Auto 10.5 x10*3/uL (2.0-8.3); Neutrophils Percent Auto 68.5 % (45-73); Platelet Count 357 X10*3/uL (160-400); Red Blood Count 4.69 X10*6/uL (4.20-5.50); Red Cell Distribution Width 13.2 % (11.0-16.0); White Blood Count 15.4 X10*3/uL (4.8-10.8)
[2023-10-11 13:19] LABS: Appearance Urine Clear; Color Urine Yellow; Glucose Urine UA Negative (Negative); Leukocyte Esterase Urine Negative (Negative); Nitrite Urine Negative (Negative); PH 7.5 (5.0-9.0); UMIC TRIGGER UACC YES; Urine Blood Trace (Negative); Urine Ketones Negative (Negative); Urine Protein Negative (Neg-Trace)
[2023-10-11 13:22] LABS: Bacteria Urine None Seen (None Seen); Hyaline Casts Urine 0-2 /LPF (0-2); Squamous Epithelial Cell Urine 0-2 /HPF (0-2); WBC Urine 0-5 /HPF (0-5)
[2023-10-11 13:40] LABS: Alanine Aminotransferase 43 U/L (0-31); Albumin Level 4.3 g/dL (3.5-5.0); Alkaline Phosphatase 81 U/L (39-117); Anion Gap 12 (12-20); Aspartate Amino Transferase 30 U/L (5-31); Bilirubin Direct 0.1 mg/dL (0.0-0.5); Bilirubin Total 0.3 mg/dL (0.0-1.0); Blood Urea Nitrogen 14 mg/dL (9-16); Calcium 9.6 mg/dL (8.4-10.2); Carbon Dioxide 25 mmol/L (22-29); Chloride 103 mmol/L (96-108); Creatinine Clr Calc Pharmacy 77.7; Estimated Glomerular Filt Rate > 60; Glucose Random 97 mg/dL (60-115); Lipase 20 U/L (8-78); Magnesium 2.1 mg/dL (1.6-2.6); Potassium 4.2 mmol/L (3.3-5.1); Sodium 136 mmol/L (135-145)
[2023-10-11 17:15] VITALS: BP 142/90; PULSE 104; RESP 14; TEMP 37.4; O2SAT 97
[2023-10-11 17:29] VITALS: RESP 15
[2023-10-11] MEDS: Morphine Sulfate 4 MG/ML CARTRIDGE IVPUSH (17:29)
[2023-10-11] MEDS: 0.9 % Sodium Chloride 1,000 ML 999 ML IVCONT (17:30)
[2023-10-11 17:37] LABS: Lactic Acid 0.8 mmol/L (0.5-2.0)
--- NOTE | 2023-10-11 17:55 | PM.HPGS ---
History of Present Illness History of Present Illness Date of Service: 10/18/23 Chief complaint: Acute diverticulitis, with microperforation Narrative: Anastasiya Mark is a 53 year old female here in the ED initially for left flank pain. She says she has had this for over a month. She was in [place] last month when she had this pain and she went to the ED there. She had a CT scan and she was told she had constipation. She says she has had this low intensity pain on the left flank and left rib area. She came to the ED today for this, but then noted left lower quadrant pain while in the ED. A CT scan was done showing diverrticulitis with a microperf in the distal descending colon. She denies fever of chills. She denies urinary complaints. She was admitted to the hospital last February 2023 for left sided abdl pain and her CT scan then showed diverticulitis in the splenic flexure. Review of Systems Constitutional: Constitutional: Denies chills and Denies fever(s) Cardiovascular: Cardiovascular: Denies chest pain, Denies dyspnea and Denies dyspnea on exertion Respiratory: Respiratory: Denies cough, Denies dyspnea and Denies dyspnea on exertion Gastrointestinal: Gastrointestinal: Denies hematochezia and Denies change in bowel habits Genitourinary: Genitourinary: Denies hematuria Musculoskeletal: Musculoskeletal: Denies back pain and Denies limited range of motion Neurologic: Denies focal weakness and Denies convulsions Psychiatric: Psychiatric: Denies depression and Denies mood swings PMFSH Past Medical History Medical History Diverticulosis Abnormal colonoscopy Mammogram normal Normal Pap smear Annual physical exam Anxiety Insomnia Family History Family History Mother Hypertension Thyroid disorder Father Diverticulitis Maternal Grandmother Thyroid disorder Social History Social History Household Members: Children Household Members Other:: 14 years daughter, works in will be retired in July Housing: Apartment Do you presently have visiting nurse or other home services: No Alcohol intake: never Patient Tobacco Use Status: Never used Tobacco Second Hand Smoke Exposure: No service: No Current occupational status: employed Cognitive needs: No Hearing needs: No Vision needs: Yes Meds Allergies Allergy/AdvReac Type Severity Reaction Status Date / Time paroxetine [From PAXIL] Allergy Intermediate RASH Verified 09/03/23 08:13 FACE/NECK adhesive [ADHESIVE] Allergy Mild BLISTERS Verified 09/03/23 08:13 adhesives, tape Allergy Unknown blisters Uncoded 05/12/23 11:22 Active Medications: Current Medications Heparin Sodium (Porcine) (Heparin Sodium,Porcine 5,000 Unit/Ml Vial) 5,000 unit SUBCUT Q8H ZULAY Dextrose/Sodium Chloride (D5ns) 1,000 mls @ 100 mls/hr IVCONT .Q10H ZULAY Piperacillin Sod/Tazobactam (Sod 3.375 gm/ Sodium Chloride) 50 mls @ 100 mls/hr IV Q6H ZULAY Morphine Sulfate (Morphine Sulfate 4 Mg/Ml Cartridge) 3 mg IVPUSH Q3H PRN; Protocol PRN Reason: Pain, Severe (Pain Scale 7-10) Ondansetron HCl (Ondansetron Hcl 4 Mg/2 Ml Vial) 4 mg IVPUSH Q6H PRN PRN Reason: Nausea Sodium Chloride (0.9 % Sodium Chloride Flush 3 Ml Syringe) 3 ml IVFLUSH QSHIFT ZULAY Home Medications Medication Instructions Recorded Confirmed Last Taken Type oxymetazoline 0.05 % nasal spray 1 spray intranasal BID PRN 02/27/23 10/11/23 10/10/23 History (Afrin (oxymetazoline)) Congestion glucosamine-chondroitin 250 mg-200 1 tab PO DAILY 10/11/23 10/11/23 10/10/23 History mg tablet (Osteo Bi-Flex) soy isoflavone-black cohosh 1 cap PO DAILY 10/11/23 10/11/23 10/10/23 History root-magnolia bark 155 mg capsule (Estroven) venlafaxine 150 mg 300 mg PO BEDTIME 10/11/23 10/11/23 10/10/23 History capsule,extended release 24 hr Physical Exam Vital Signs: Vital Signs: Last Vital Signs Temp 99.3 F 10/11/23 17:15 Pulse 104 H 10/11/23 17:15 Resp 15 10/11/23 17:29 BP 142/90 H 10/11/23 17:15 Pulse Ox 97 10/11/23 17:15 O2 Del Method Room Air 10/11/23 17:15 BMI result Body Mass Index 33.6 Const: Other: looks well General: comfortable and no acute distress Orientation/consciousness: patient oriented x3 Neck: Neck: Yes no lymphadenopathy Resp: Auscultation: clear to auscultation bilaterally Cardio: Rhythm: regular rhythm GI: Other: tender on left flank, left LLQ area, with no guarding or rebound Palpation (GI): Soft to palpation, Tenderness to palpation present (GI) and no guarding Neuro: General: patient oriented x3 Results Results Labs: Short CBC 10/11/23 Range/Units 13:08 WBC 15.4 H (4.8-10.8) X10*3/uL Hgb 14.6 (12.0-16.0) g/dl Hct 43.0 (37.0-47.0) % Plt Count 357 (160-400) X10*3/uL BMP 10/11/23 13:08 Sodium 136 Potassium 4.2 Chloride 103 Carbon Dioxide 25 BUN 14 Creatinine 0.85 Calcium 9.6 Liver Function 10/11/23 Range/Units 13:08 Total Bilirubin 0.3 (0.0-1.0) mg/dL Direct Bilirubin 0.1 (0.0-0.5) mg/dL AST 30 (5-31) U/L ALT 43 H (0-31) U/L Alkaline Phosphatase 81 (39-117) U/L Albumin 4.3 (3.5-5.0) g/dL Urine 10/11/23 Range/Units 13:08 Urine Color Yellow Urine Appearance Clear Urine pH 7.5 (5.0-9.0) Ur Specific [place] 1.010 (1.005-1.025) Urine Protein Negative (Neg-Trace) mg/dL Urine Glucose (UA) Negative (Negative) mg/dL Abdomen CT scan report/results: report reviewed and image reviewed CT scan - pelvis: report reviewed and image reviewed Additional studies: Laboratory Results WBC 15.4 X10*3/uL (4.8-10.8) H 10/11/23 13:08 RBC 4.69 X10*6/uL (4.20-5.50) 10/11/23 13:08 Hgb 14.6 g/dl (12.0-16.0) 10/11/23 13:08 Hct 43.0 % (37.0-47.0) 10/11/23 13:08 MCV 91.7 fL (80.0-98.0) 10/11/23 13:08 MCH 31.1 pg (27.0-33.0) 10/11/23 13:08 MCHC 34.0 g/dl (31.0-35.0) 10/11/23 13:08 RDW 13.2 % (11.0-16.0) 10/11/23 13:08 Plt Count 357 X10*3/uL (160-400) 10/11/23 13:08 MPV 10.2 fL (9.4-12.3) 10/11/23 13:08 Immature Gran % (Auto) 0.4 % (0.0-0.4) 10/11/23 13:08 Neut % (Auto) 68.5 % (45-73) 10/11/23 13:08 Lymph % (Auto) 22.0 % (20-40) 10/11/23 13:08 [place] % (Auto) 6.1 % (2-11) 10/11/23 13:08 Eos % (Auto) 2.3 % (0-4) 10/11/23 13:08 Baso % (Auto) 0.7 % (0-2) 10/11/23 13:08 Lymph # (Auto) 3.4 X10*3/uL (1.2-4.9) 10/11/23 13:08 [place] # (Auto) 0.9 X10*3/uL (0.1-1.2) 10/11/23 13:08 Eos # (Auto) 0.4 X10*3/uL (0.0-0.4) 10/11/23 13:08 Baso # (Auto) 0.1 X10*3/uL (0.0-0.2) 10/11/23 13:08 Abs Immat Gran (auto) 0.06 X10*3/uL (0.00-0.03) H 10/11/23 13:08 Absolute Neuts (auto) 10.5 x10*3/uL (2.0-8.3) H 10/11/23 13:08 Absolute Nucleated RBC 0.000 X10*3/uL (0.0-0.012) 10/11/23 13:08 Nucleated RBC % (auto) 0.0 /100WBC (0.0-0.2) 10/11/23 13:08 Sodium 136 mmol/L (135-145) 10/11/23 13:08 Potassium 4.2 mmol/L (3.3-5.1) 10/11/23 13:08 Chloride 103 mmol/L (96-108) 10/11/23 13:08 Carbon Dioxide 25 mmol/L (22-29) 10/11/23 13:08 Anion Gap 12 (12-20) 10/11/23 13:08 BUN 14 mg/dL (9-16) 10/11/23 13:08 Creatinine 0.85 mg/dL (0.5-1.4) 10/11/23 13:08 Estim Creat Clear Calc 77.7 10/11/23 13:08 Estimated GFR > 60 10/11/23 13:08 Random Glucose 97 mg/dL (60-115) 10/11/23 13:08 Lactic Acid 0.8 mmol/L (0.5-2.0) 10/11/23 17:11 Calcium 9.6 mg/dL (8.4-10.2) 10/11/23 13:08 Magnesium 2.1 mg/dL (1.6-2.6) 10/11/23 13:08 Total Bilirubin 0.3 mg/dL (0.0-1.0) 10/11/23 13:08 Direct Bilirubin 0.1 mg/dL (0.0-0.5) 10/11/23 13:08 AST 30 U/L (5-31) 10/11/23 13:08 ALT 43 U/L (0-31) H 10/11/23 13:08 Alkaline Phosphatase 81 U/L (39-117) 10/11/23 13:08 Total Protein 8.0 g/dL (6.5-8.0) 10/11/23 13:08 Albumin 4.3 g/dL (3.5-5.0) 10/11/23 13:08 Lipase 20 U/L (8-78) 10/11/23 13:08 Urine Color Yellow 10/11/23 13:08 Urine Appearance Clear 10/11/23 13:08 Urine pH 7.5 (5.0-9.0) 10/11/23 13:08 Ur Specific [place] 1.010 (1.005-1.025) 10/11/23 13:08 Urine Protein Negative mg/dL (Neg-Trace) 10/11/23 13:08 Urine Glucose (UA) Negative mg/dL (Negative) 10/11/23 13:08 Urine Ketones Negative mg/dL (Negative) 10/11/23 13:08 Urine Blood Trace (Negative) H 10/11/23 13:08 Urine Nitrite Negative (Negative) 10/11/23 13:08 Ur Leukocyte Esterase Negative (Negative) 10/11/23 13:08 Urine RBC 3-5 /HPF (0-2) H 10/11/23 13:08 Urine WBC 0-5 /HPF (0-5) 10/11/23 13:08 Ur Squamous Epith Cells 0-2 /HPF (0-2) 10/11/23 13:08 Urine Bacteria None Seen (None Seen) 10/11/23 13:08 Hyaline Casts 0-2 /LPF (0-2) 10/11/23 13:08 Impressions Abdomen/Pelvis CT 10/11/23 14:33 IMPRESSION: 1. Acute diverticulitis with microperforation. 2. Hepatic steatosis. 3. Stable left adrenal gland adenoma. Fleischner guidelines were followed. Assessment and Plan (1) Diverticulitis of colon with perforation: Status: Acute She describes left sided, LLQ pain today and her CT shows inflammatory changes in the distal descending colon c/w diverticulitis with a microperforation. She has a benign abdominal exam otherwise. She looks well and is not toxic looking. I will admit her for IV abx, bowel rest and IVF. Review of her CT scan from February 2023 shows that the area of the colon affected is not the same one as the current episode. She understands the small possibility of requiring lapaorotomy for worsening or nonimprovement. Quality Stroke Does the patient have a stroke diagnosis?: No VTE Prior VTE?: No VTE Risk Level:: Medical - moderate - high VTE Device Contraindication: N/A - Device Ordered VTE Drug Contraindication: N/A - Med Ordered Procedures Date of Service Date of Service: 10/18/23
[2023-10-11 18:00] VITALS: BP 128/85; PULSE 93; RESP 16; TEMP 36.5; O2SAT 98
[2023-10-11] MEDS: Piperacillin Sodium/Tazobactam 3.375 GM in 0.9 % Sodium Chloride 50 ML IV (18:18)
--- NOTE | 2023-10-11 18:27 | PHA.MEDREC ---
Pharmacy Consult ? Medication Reconciliation Pharmacy has completed the medication reconciliation. Patient reported medications. Reports taking both tablet of venlafaxine together. Codie Phillips, JenniferD
[2023-10-11] MEDS: Dextrose 5 % and 0.9 % NaCl 1,000 ML 100 ML IVCONT (18:34)
[2023-10-11 20:36] VITALS: BP 133/78; PULSE 97; RESP 16; TEMP 37.1; O2SAT 96
--- NOTE | 2023-10-11 20:45 | PC.NURSE ---
attempted to give 3mg morphine via r forearm iv however, not flushing in. Shruti RN was at bedside- witnessed wasted dose with this RN in [facility]
--- NOTE | 2023-10-11 21:28 | PC.NURSE ---
assumed care of patient at 21:15 - per previous RN wanda iv in r forearm not flushing, pt did not receive pulled dose of morphine 3mg. witnessed by this RN in room and in pyxis. this RN placed new iv #20g in LAC, will administer 3mg morphine per mar for pain at patient request.
[2023-10-11] MEDS: Morphine Sulfate 4 MG/ML CARTRIDGE 3 MG IVPUSH (21:42)
[2023-10-11] MEDS: traZODone HCL 50 MG TABLET PO (21:43)
--- NOTE | 2023-10-11 23:57 | PC.NURSE ---
pt ambulatory to and from bathroom with a steady gait. pt reports relief of abdominal pain from morphine but still c/o headache. will medicate with tylenol if OK with provider
[2023-10-12] MEDS: Piperacillin Sodium/Tazobactam 3.375 GM in 0.9 % Sodium Chloride 50 ML IV ×4 (00:13→18:12)
[2023-10-12] MEDS: Acetaminophen 325 MG TABLET 650 MG PO ×2 (00:14→12:05)
[2023-10-12] MEDS: 0.9 % Sodium Chloride Flush 3 ML SYRINGE IVFLUSH (00:14)
[2023-10-12 00:17] VITALS: BP 118/73; PULSE 82; RESP 12; O2SAT 98
[2023-10-12] MEDS: Venlafaxine HCl ER 150 MG CAP.ER.24H 300 MG PO ×2 (01:09→19:59)
[2023-10-12 03:57] VITALS: BP 125/78; PULSE 84; RESP 16; TEMP 37.1; O2SAT 95
--- NOTE | 2023-10-12 04:07 | PC.NURSE ---
this rn assumed care of pt @ 0200. pt disconnected from fluids to use restroom. pt ambulatory to restroom pt repositioned and reconnected in bed
[2023-10-12 04:57] LABS: MANUAL DIFF FLAG NO
[2023-10-12 05:05] LABS: Basophils Absolute Auto 0.1 X10*3/uL (0.0-0.2); Basophils Percent Auto 0.6 % (0-2); Eosinophils Absolute Auto 0.4 X10*3/uL (0.0-0.4); Hematocrit 36.5 % (37.0-47.0); Hemoglobin 12.2 g/dl (12.0-16.0); Imm Gran Abs Auto 0.03 X10*3/uL (0.00-0.03); Imm Gran Pct Auto 0.3 % (0.0-0.4); Lymphocytes Absolute Auto 2.7 X10*3/uL (1.2-4.9); Lymphocytes Percent Auto 26.4 % (20-40); Mean Corpuscular HGB Conc 33.4 g/dl (31.0-35.0); Mean Corpuscular Hemoglobin 30.9 pg (27.0-33.0); Mean Corpuscular Volume 92.4 fL (80.0-98.0); Mean Platelet Volume 10.5 fL (9.4-12.3); Monocytes Percent Auto 9.3 % (2-11); Neutrophils Absolute Auto 6.1 x10*3/uL (2.0-8.3); Neutrophils Percent Auto 59.4 % (45-73); Platelet Count 270 X10*3/uL (160-400); Red Blood Count 3.95 X10*6/uL (4.20-5.50); Red Cell Distribution Width 13.2 % (11.0-16.0); White Blood Count 10.2 X10*3/uL (4.8-10.8)
[2023-10-12 05:22] LABS: Anion Gap 13 (12-20); Blood Urea Nitrogen 11 mg/dL (9-16); Calcium 8.7 mg/dL (8.4-10.2); Carbon Dioxide 25 mmol/L (22-29); Chloride 105 mmol/L (96-108); Creatinine Clr Calc Pharmacy 70.2; Estimated Glomerular Filt Rate > 60; Glucose Random 110 mg/dL (60-115); Potassium 3.8 mmol/L (3.3-5.1); Sodium 139 mmol/L (135-145)
[2023-10-12] MEDS: Morphine Sulfate 4 MG/ML CARTRIDGE 3 MG IVPUSH ×3 (05:41→19:57)
[2023-10-12] MEDS: Dextrose 5 % and 0.9 % NaCl 1,000 ML 100 ML IVCONT ×2 (06:36→18:02)
--- NOTE | 2023-10-12 08:09 | PC.NURSE ---
Alert and oriented, calm and cooperative, ambulates to bathroom with steady gait,
--- NOTE | 2023-10-12 08:43 | P.PNGS_ITS ---
Subjective Subjective Date of Service: 10/12/23 <Marti Wang PA-C - Last Filed: 10/12/23 08:46> 10/12/23 <Ricardo Green MD - Last Filed: 10/12/23 09:30> Interval history: Still having LUQ and LLQ pain, might be mildly improved since admission. Denies nausea, flatus. <Marti Wang PA-C - Last Filed: 10/12/23 08:46> Physical Exam 2 Vital Signs: Vital Signs: Last Vital Signs Temp 98.8 F 10/12/23 03:57 Pulse 84 10/12/23 03:57 Resp 16 10/12/23 03:57 BP 125/78 10/12/23 03:57 Pulse Ox 95 10/12/23 03:57 O2 Del Method Room Air 10/12/23 03:57 BMI result Body Mass Index 33.6 <Marti Wang PA-C - Last Filed: 10/12/23 08:46> Const: General: comfortable, no acute distress and alert <Marti Wang PA-C - Last Filed: 10/12/23 08:46> Orientation/consciousness: patient oriented x3 <LAINE Shannon Last Filed: 10/12/23 08:46> Resp: Effort & Inspection: normal respiratory effort <LAINE Shannon Last Filed: 10/12/23 08:46> GI: Inspection: No distended <Marti Wang PA-C - Last Filed: 10/12/23 08:46> Palpation (GI): Soft to palpation, Tenderness to palpation present (GI) (pinpoint LLQ tenderness with rebound ), no guarding and not rigid <Marti Wang PA-C - Last Filed: 10/12/23 08:46> Percussion: Yes normal to percussion <LAINE Shannon Last Filed: 10/12/23 08:46> Skin: General skin exam: no rashes or lesions noted <LAINE Shannon Last Filed: 10/12/23 08:46> Neuro: General: patient oriented x3 and moves all extremities <Marti Wang PA-C - Last Filed: 10/12/23 08:46> Objective Data Active Medications Clonazepam (Clonazepam 0.5 Mg Tablet) 0.5 mg PO DAILY PRN PRN Reason: anxiety Heparin Sodium (Porcine) (Heparin Sodium,Porcine 5,000 Unit/Ml Vial) 5,000 unit SUBCUT Q8H [facility] Dextrose/Sodium Chloride (D5ns) 1,000 mls @ 100 mls/hr IVCONT .Q10H [facility] Last Admin: 10/12/23 06:36 Dose: 100 mls/hr Documented By: MEME Piperacillin Sod/Tazobactam (Sod 3.375 gm/ Sodium Chloride) 50 mls @ 100 mls/hr IV Q6H [facility] Last Infusion: 10/12/23 08:07 Dose: Infused Documented By: TYRESE Morphine Sulfate (Morphine Sulfate 4 Mg/Ml Cartridge) 3 mg IVPUSH Q3H PRN; Protocol PRN Reason: Pain, Severe (Pain Scale 7-10) Last Admin: 10/12/23 05:41 Dose: 3 mg Documented By: MEME Ondansetron HCl (Ondansetron Hcl 4 Mg/2 Ml Vial) 4 mg IVPUSH Q6H PRN PRN Reason: Nausea Oxymetazoline HCl (Oxymetazoline Hcl 0.05 % Nasal 15 Ml [place]) 1 spray NOSTRIL- B BID PRN PRN Reason: Congestion Sodium Chloride (0.9 % Sodium Chloride Flush 3 Ml Syringe) 3 ml IVFLUSH QSHIFT [facility] Last Admin: 10/12/23 08:08 Dose: Not Given Documented By: TYRESE Non-Admin Reason: IV Running Trazodone HCl (Trazodone Hcl 50 Mg Tablet) 50 mg PO BEDTIME [facility] Last Admin: 10/11/23 21:43 Dose: 50 mg Documented By: EVANGELINA Venlafaxine HCl (Venlafaxine Hcl Er 150 Mg Cap.Er.24h) 300 mg PO BEDTIME [facility] Last Admin: 10/12/23 01:09 Dose: 300 mg Documented By: EVANGELINA <Marti Wang PA-C - Last Filed: 10/12/23 08:46> Labs CBC & Chem 7: 10/12/23 04:43 10/12/23 04:43 <Marti Wang PA-C - Last Filed: 10/12/23 08:46> Labs: Laboratory Results - last 24 hr 10/11/23 10/11/23 10/12/23 13:08 17:11 04:43 MCV 91.7 92.4 MCH 31.1 30.9 MCHC 34.0 33.4 RDW 13.2 13.2 Plt Count 357 270 MPV 10.2 10.5 Immature Gran % (Auto) 0.4 0.3 Neut % (Auto) 68.5 59.4 Lymph % (Auto) 22.0 26.4 [place] % (Auto) 6.1 9.3 Eos % (Auto) 2.3 4.0 Baso % (Auto) 0.7 0.6 Lymph # (Auto) 3.4 2.7 [place] # (Auto) 0.9 1.0 Eos # (Auto) 0.4 0.4 Baso # (Auto) 0.1 0.1 Abs Immat Gran (auto) 0.06 H 0.03 Absolute Neuts (auto) 10.5 H 6.1 Absolute Nucleated RBC 0.000 0.000 Nucleated RBC % (auto) 0.0 0.0 Anion Gap 12 13 Estim Creat Clear Calc 77.7 70.2 Estimated GFR > 60 > 60 Random Glucose 97 110 Lactic Acid 0.8 Calcium 9.6 8.7 D Magnesium 2.1 Total Bilirubin 0.3 Direct Bilirubin 0.1 AST 30 ALT 43 H Alkaline Phosphatase 81 Total Protein 8.0 Albumin 4.3 Lipase 20 Urine Color Yellow Urine Appearance Clear Urine pH 7.5 Ur Specific [place] 1.010 Urine Protein Negative Urine Glucose (UA) Negative Urine Ketones Negative Urine Blood Trace H Urine Nitrite Negative Ur Leukocyte Esterase Negative Urine RBC 3-5 H Urine WBC 0-5 Ur Squamous Epith Cells 0-2 Urine Bacteria None Seen Hyaline Casts 0-2 <Marti Wang PA-C - Last Filed: 10/12/23 08:46> Procedures Date of Service Date of Service: 10/12/23 <Marti Wang PA-C - Last Filed: 10/12/23 08:46> 10/12/23 <Ricardo Green MD - Last Filed: 10/12/23 09:30> Progress Note: A&P Assessment and plan (1) Diverticulitis of colon with perforation: Status: Acute <Marti Wang PA-C - Last Filed: 10/12/23 08:46> Assessment and Plan: says she still has left flank pain no fever abd soft looks comfortable WBC down continue current mgt - IV abx, bowel rest, IVF exam remains benign seen and examined independently <Ricardo Green MD - Last Filed: 10/12/23 09:30> Assessment and Plan: 53 year old female admitted for diverticulitis with microperforation. Pain remains about the same. LLQ has moderate pinpoint tenderness with rebound. WBC however has now normalized. Cont supportive measures with IV abx, bowel rest, IVF. Possible repeat CT scan in next couple of days if no improvement. Patient agrees with plan. <Marti Wang PA-C - Last Filed: 10/12/23 08:46> Time Spent With Patient Time: Total time managing care of this patient today ____ minutes. <Marti Wang PA-C - Last Filed: 10/12/23 08:46> Quality Stroke Does the patient have a stroke diagnosis?: No <Marti Wang PA-C - Last Filed: 10/12/23 08:46> VTE Prior VTE?: No <Marti Wang PA-C - Last Filed: 10/12/23 08:46> VTE Risk Level:: Medical - moderate - high <Marti Wang PA-C - Last Filed: 10/12/23 08:46> VTE Device Contraindication: N/A - Device Ordered <Marti Wang PA-C - Last Filed: 10/12/23 08:46> VTE Drug Contraindication: N/A - Med Ordered <Marti Wang PA-C - Last Filed: 10/12/23 08:46>
[2023-10-12 09:39] VITALS: BP 107/75; PULSE 74; RESP 16; TEMP 36.3; O2SAT 97
--- NOTE | 2023-10-12 11:22 | MHC.CM.PN ---
Female 53 DX Acute Diverticulitis w micro perf. Patient is independent with all functional mobility. Her dtr lives with her. She declined the offer to document a HCP. DP home self care. Patient will arrange for transport home. She has her car in lot. She may self transport.
[2023-10-12 12:00] VITALS: BP 116/74; PULSE 84; TEMP 36.6; O2SAT 97
[2023-10-12 15:43] VITALS: BP 120/76; PULSE 80; RESP 19; TEMP 36.2; O2SAT 97
[2023-10-12 19:48] VITALS: BP 129/77; PULSE 85; RESP 19; TEMP 36.3; O2SAT 98
[2023-10-12] MEDS: traZODone HCL 50 MG TABLET PO (19:58)
[2023-10-12] MEDS: Heparin Sodium,Porcine 5,000 UNIT/ML VIAL 5000 UNIT SUBCUT (19:59)
[2023-10-13] MEDS: Piperacillin Sodium/Tazobactam 3.375 GM in 0.9 % Sodium Chloride 50 ML IV ×5 (00:42→23:13)
[2023-10-13] MEDS: 0.9 % Sodium Chloride Flush 3 ML SYRINGE IVFLUSH ×2 (00:52→21:05)
[2023-10-13] MEDS: Morphine Sulfate 4 MG/ML CARTRIDGE 3 MG IVPUSH ×3 (01:10→23:10)
[2023-10-13 01:40] VITALS: RESP 20
[2023-10-13 03:42] VITALS: BP 121/79; PULSE 90; RESP 16; TEMP 36.8; O2SAT 97
[2023-10-13] MEDS: Dextrose 5 % and 0.9 % NaCl 1,000 ML 100 ML IVCONT (04:56)
[2023-10-13] MEDS: Heparin Sodium,Porcine 5,000 UNIT/ML VIAL 5000 UNIT SUBCUT ×3 (05:44→21:05)
[2023-10-13 07:41] VITALS: BP 111/69; PULSE 83; RESP 16; TEMP 36.4; O2SAT 95
--- NOTE | 2023-10-13 08:31 | PM.PNGS ---
Subjective Subjective Date of Service: 10/14/23 Interval history: says she is ok today tolerating clears states she still has left flank pain although better Physical Exam Vital Signs: Vital Signs: Last Vital Signs Temp 97.5 F 10/13/23 07:41 Pulse 83 10/13/23 07:41 Resp 16 10/13/23 07:41 BP 111/69 10/13/23 07:41 Pulse Ox 95 10/13/23 07:41 O2 Del Method Room Air 10/13/23 07:41 BMI result Body Mass Index 33.6 Const: General: comfortable and no acute distress Resp: Effort & Inspection: normal respiratory effort Cardio: Rate: regular rate GI: Palpation (GI): Soft to palpation, not firm, Tenderness to palpation present (GI) (some tenderness on left side) and no guarding Objective Data Active Medications Acetaminophen (Acetaminophen 325 Mg Tablet) 650 mg PO Q6H PRN PRN Reason: Headache Last Admin: 10/12/23 12:05 Dose: 650 mg Documented By: HORACIO Clonazepam (Clonazepam 0.5 Mg Tablet) 0.5 mg PO DAILY PRN PRN Reason: anxiety Heparin Sodium (Porcine) (Heparin Sodium,Porcine 5,000 Unit/Ml Vial) 5,000 unit SUBCUT Q8H [facility] Last Admin: 10/13/23 05:44 Dose: 5,000 unit Documented By: DEN Dextrose/Sodium Chloride (D5ns) 1,000 mls @ 100 mls/hr IVCONT .Q10H [facility] Last Admin: 10/13/23 04:56 Dose: 100 mls/hr Documented By: DEN Piperacillin Sod/Tazobactam (Sod 3.375 gm/ Sodium Chloride) 50 mls @ 100 mls/hr IV Q6H [facility] Last Infusion: 10/13/23 06:20 Dose: Infused Documented By: DEN Morphine Sulfate (Morphine Sulfate 4 Mg/Ml Cartridge) 3 mg IVPUSH Q3H PRN; Protocol PRN Reason: Pain, Severe (Pain Scale 7-10) Last Admin: 10/13/23 08:08 Dose: 3 mg Documented By: HORACIO Ondansetron HCl (Ondansetron Hcl 4 Mg/2 Ml Vial) 4 mg IVPUSH Q6H PRN PRN Reason: Nausea Oxymetazoline HCl (Oxymetazoline Hcl 0.05 % Nasal 15 Ml [place]) 1 spray NOSTRIL-B BID PRN PRN Reason: Congestion Sodium Chloride (0.9 % Sodium Chloride Flush 3 Ml Syringe) 3 ml IVFLUSH QSHIFT [facility] Last Admin: 10/13/23 07:28 Dose: Not Given Documented By: HORACIO Non-Admin Reason: IV Running Trazodone HCl (Trazodone Hcl 50 Mg Tablet) 50 mg PO BEDTIME [facility] Last Admin: 10/12/23 19:58 Dose: 50 mg Documented By: JEAN MARIE Venlafaxine HCl (Venlafaxine Hcl Er 150 Mg Cap.Er.24h) 300 mg PO BEDTIME [facility] Last Admin: 10/12/23 19:59 Dose: 300 mg Documented By: JEAN MARIE Labs 10/12/23 04:43 10/12/23 04:43 Microbiology Microbiology Results: Microbiology 10/11/23 18:15 Blood Culture - Preliminary Blood - Venous No growth after 24 hours. 10/11/23 17:17 Blood Culture - Preliminary Blood - Venous No growth after 24 hours. Procedures Date of Service Date of Service: 10/14/23 Progress Note: A&P Assessment and plan (1) Diverticulitis of colon with perforation: Status: Acute Assessment and Plan: clinically better although with some pain and tenderness will keep on clear liquids IV abx looks well exam remains benign Time Spent With Patient Time: Total time managing care of this patient today ____ minutes. Quality Stroke Does the patient have a stroke diagnosis?: No VTE Prior VTE?: No VTE Risk Level:: Medical - moderate - high VTE Device Contraindication: N/A - Device Ordered VTE Drug Contraindication: N/A - Med Ordered
[2023-10-13] MEDS: Acetaminophen 325 MG TABLET 650 MG PO ×2 (12:14→17:58)
--- NOTE | 2023-10-13 13:55 | MHC.CM.PN ---
No discharge today. DP home self care. Pt will arrange transport or self transport home.
[2023-10-13 15:23] VITALS: BP 119/66; PULSE 78; RESP 17; TEMP 36.2; O2SAT 99
[2023-10-13 19:13] VITALS: BP 120/69; PULSE 82; RESP 18; TEMP 36.2; O2SAT 97
[2023-10-13] MEDS: Venlafaxine HCl ER 150 MG CAP.ER.24H 300 MG PO (21:04)
[2023-10-13] MEDS: traZODone HCL 50 MG TABLET PO (21:13)
[2023-10-13] MEDS: Ketorolac Tromethamine 30 MG/ML VIAL IVPUSH (23:06)
[2023-10-14 03:22] VITALS: BP 123/77; PULSE 70; RESP 16; TEMP 36.1; O2SAT 95
[2023-10-14] MEDS: Heparin Sodium,Porcine 5,000 UNIT/ML VIAL 5000 UNIT SUBCUT ×3 (05:43→21:22)
[2023-10-14] MEDS: Piperacillin Sodium/Tazobactam 3.375 GM in 0.9 % Sodium Chloride 50 ML IV ×3 (05:44→18:08)
--- NOTE | 2023-10-14 07:33 | P.PNGS_ITS ---
Subjective Subjective Date of Service: 10/14/23 <Marti Wang PA-C - Last Filed: 10/14/23 07:36> 10/14/23 <Ricardo Green MD - Last Filed: 10/14/23 07:59> Interval history: Reports left sided abdominal pain only when she moves now. Tolerating liquids. <Marti Wang PA-C - Last Filed: 10/14/23 07:36> Physical Exam 2 Vital Signs: Vital Signs: Last Vital Signs Temp 97.0 F 10/14/23 03:22 Pulse 70 10/14/23 03:22 Resp 16 10/14/23 03:22 BP 123/77 10/14/23 03:22 Pulse Ox 95 10/14/23 03:22 O2 Del Method Room Air 10/14/23 03:22 BMI result Body Mass Index 33.6 <LAINE Shannon Last Filed: 10/14/23 07:36> Const: General: comfortable, no acute distress and alert <LAINE Shannon Last Filed: 10/14/23 07:36> Orientation/consciousness: patient oriented x3 <LAINE Shannon Last Filed: 10/14/23 07:36> Resp: Effort & Inspection: normal respiratory effort <LAINE Shannon Last Filed: 10/14/23 07:36> GI: Inspection: No distended <Marti Wang PA-C - Last Filed: 10/14/23 07:36> Palpation (GI): Soft to palpation, Tenderness to palpation present (GI) (moderate left sided tenderness), no guarding and not rigid <LAINE Shannon Last Filed: 10/14/23 07:36> Skin: General skin exam: no rashes or lesions noted and no jaundice < LAINE Shannon Last Filed: 10/14/23 07:36> Neuro: General: patient oriented x3 and moves all extremities <LAINE Shannon Last Filed: 10/14/23 07:36> Objective Data Active Medications Acetaminophen (Acetaminophen 325 Mg Tablet) 650 mg PO Q6H PRN PRN Reason: Headache Last Admin: 10/13/23 17:58 Dose: 650 mg Documented By: HORACIO Clonazepam (Clonazepam 0.5 Mg Tablet) 0.5 mg PO DAILY PRN PRN Reason: anxiety Heparin Sodium (Porcine) (Heparin Sodium,Porcine 5,000 Unit/Ml Vial) 5,000 unit SUBCUT Q8H [facility] Last Admin: 10/14/23 05:43 Dose: 5,000 unit Documented By: SINGH Piperacillin Sod/Tazobactam (Sod 3.375 gm/ Sodium Chloride) 50 mls @ 100 mls/hr IV Q6H [facility] Last Infusion: 10/14/23 06:33 Dose: Infused Documented By: SINGH Morphine Sulfate (Morphine Sulfate 4 Mg/Ml Cartridge) 3 mg IVPUSH Q3H PRN; Protocol PRN Reason: Pain, Severe (Pain Scale 7-10) Last Admin: 10/13/23 23:10 Dose: 3 mg Documented By: SINGH Ondansetron HCl (Ondansetron Hcl 4 Mg/2 Ml Vial) 4 mg IVPUSH Q6H PRN PRN Reason: Nausea Oxymetazoline HCl (Oxymetazoline Hcl 0.05 % Nasal 15 Ml [place]) 1 spray NOSTRIL- B BID PRN PRN Reason: Congestion Sodium Chloride (0.9 % Sodium Chloride Flush 3 Ml Syringe) 3 ml IVFLUSH QSHIFT [facility] Last Admin: 10/13/23 21:05 Dose: 3 ml Documented By: SINGH Trazodone HCl (Trazodone Hcl 50 Mg Tablet) 50 mg PO BEDTIME [facility] Last Admin: 10/13/23 21:13 Dose: 50 mg Documented By: SINGH Venlafaxine HCl (Venlafaxine Hcl Er 150 Mg Cap.Er.24h) 300 mg PO BEDTIME [facility] Last Admin: 10/13/23 21:04 Dose: 300 mg Documented By: SINGH <Marti Wang PA-C - Last Filed: 10/14/23 07:36> Labs CBC & Chem 7: 10/12/23 04:43 10/12/23 04:43 <Marti Wang PA-C - Last Filed: 10/14/23 07:36> Microbiology Microbiology Results: Microbiology 10/11/23 18:15 Blood Culture - Preliminary Blood - Venous No growth after 48 hours. 10/11/23 17:17 Blood Culture - Preliminary Blood - Venous No growth after 48 hours. <Marti Wang PA-C - Last Filed: 10/14/23 07:36> Procedures Date of Service Date of Service: 10/14/23 <Marti Wang PA-C - Last Filed: 10/14/23 07:36> 10/14/23 <Ricardo Green MD - Last Filed: 10/14/23 07:59> Progress Note: A&P Assessment and plan (1) Diverticulitis of colon with perforation: Status: Acute <Marti Wang PA-C - Last Filed: 10/14/23 07:36> Assessment and Plan: looks comfortable states she still has pain on left flank area no fever exam benign plan to repeat CT IV abx seen and examined independently <Ricardo Green MD - Last Filed: 10/14/23 07:59> Assessment and Plan: No significant improvement in left sided abdominal tenderness. Will repeat CT scan abd/pelvis with IV contrast to reassess. Cont supportive measures for now. <Marti Wang PA-C - Last Filed: 10/14/23 07:36> Time Spent With Patient Time: Total time managing care of this patient today ____ minutes. <Marti Wang PA-C - Last Filed: 10/14/23 07:36> Quality Stroke Does the patient have a stroke diagnosis?: No <Marti Wang PA-C - Last Filed: 10/14/23 07:36> VTE Prior VTE?: No <Marti Wang PA-C - Last Filed: 10/14/23 07:36> VTE Risk Level:: Medical - moderate - high <Marti Wang PA-C - Last Filed: 10/14/23 07:36> VTE Device Contraindication: N/A - Device Ordered <Marti Wang PA-C - Last Filed: 10/14/23 07:36> VTE Drug Contraindication: N/A - Med Ordered <Marti Wang PA-C - Last Filed: 10/14/23 07:36>
[2023-10-14 07:56] VITALS: BP 128/70; PULSE 67; RESP 14; TEMP 36.6; O2SAT 98
[2023-10-14] MEDS: Morphine Sulfate 4 MG/ML CARTRIDGE 3 MG IVPUSH (08:03)
[2023-10-14] MEDS: 0.9 % Sodium Chloride Flush 3 ML SYRINGE IVFLUSH ×3 (08:05→21:22)
[2023-10-14] MEDS: iohexoL 350 MG/ML 75 ML INFUS..BTL 85 ML IV (09:05)
--- NOTE | 2023-10-14 11:18 | HO.SKINPHOTO ---
Location: Category: Stage: Length: Width: Depth: cm Location: Category: Stage: Length: Width: Depth: cm Location: Category: Stage: Length: Width: Depth: cm Location: Category: Stage: Length: Width: Depth: cm Location: Category: Stage: Length: Width: Depth: cm Location: Category: Stage: Length: Width: Depth: cm
--- NOTE | 2023-10-14 12:39 | PM.EVENT ---
Event Note Date of Service: 10/14/23 Event Note: ffup CT reviewed - some improvement of imflammatory changes seen still with tenderness plan to keep on clear liquids for today clinically looks well and comfortable afebrile explained plan to patient Time Spent With Patient Time: Total time managing care of this patient today ____ minutes.
[2023-10-14 15:23] VITALS: BP 126/79; PULSE 92; RESP 18; TEMP 36.2; O2SAT 97
[2023-10-14] MEDS: Ketorolac Tromethamine 15 MG/ML VIAL IVPUSH ×2 (16:05→22:58)
[2023-10-14 19:52] VITALS: BP 134/81; PULSE 79; RESP 18; TEMP 36; O2SAT 97
[2023-10-14] MEDS: traZODone HCL 50 MG TABLET PO (21:20)
[2023-10-14] MEDS: Venlafaxine HCl ER 150 MG CAP.ER.24H 300 MG PO (21:22)
[2023-10-15] MEDS: Piperacillin Sodium/Tazobactam 3.375 GM in 0.9 % Sodium Chloride 50 ML IV ×5 (00:17→23:46)
[2023-10-15] MEDS: Morphine Sulfate 4 MG/ML CARTRIDGE 3 MG IVPUSH (00:24)
[2023-10-15 04:00] VITALS: BP 115/73; PULSE 69; RESP 18; TEMP 36.2; O2SAT 100
[2023-10-15] MEDS: Heparin Sodium,Porcine 5,000 UNIT/ML VIAL 5000 UNIT SUBCUT ×3 (06:20→20:47)
[2023-10-15 07:18] VITALS: BP 124/75; PULSE 70; RESP 16; TEMP 36.4; O2SAT 95
[2023-10-15 08:49] LABS: Hematocrit 40.6 % (37.0-47.0); Hemoglobin 13.9 g/dl (12.0-16.0); Mean Corpuscular HGB Conc 34.2 g/dl (31.0-35.0); Mean Corpuscular Hemoglobin 31.3 pg (27.0-33.0); Mean Corpuscular Volume 91.4 fL (80.0-98.0); Mean Platelet Volume 10.3 fL (9.4-12.3); Platelet Count 344 X10*3/uL (160-400); Red Blood Count 4.44 X10*6/uL (4.20-5.50); Red Cell Distribution Width 12.7 % (11.0-16.0); White Blood Count 6.5 X10*3/uL (4.8-10.8)
[2023-10-15] MEDS: 0.9 % Sodium Chloride Flush 3 ML SYRINGE IVFLUSH ×3 (08:51→20:48)
--- NOTE | 2023-10-15 09:04 | PM.PNGS ---
Subjective Subjective Date of Service: 10/15/23 <Marti Wang PA-C - Last Filed: 10/15/23 09:06> 10/15/23 <Ricardo Green MD - Last Filed: 10/15/23 09:52> Interval history: Feels improved this morning, less abdominal pain. Tolerating liquids and feels hungry. <Marti Wang PA-C - Last Filed: 10/15/23 09:06> Physical Exam Vital Signs: Vital Signs: Last Vital Signs Temp 97.5 F 10/15/23 07:18 Pulse 70 10/15/23 07:18 Resp 16 10/15/23 07:18 BP 124/75 10/15/23 07:18 Pulse Ox 95 10/15/23 07:18 O2 Del Method Room Air 10/15/23 07:18 BMI result Body Mass Index 33.6 <LAINE Shannon Last Filed: 10/15/23 09:06> Const: General: comfortable, no acute distress and alert <Marti Wang PA-C - Last Filed: 10/15/23 09:06> Orientation/consciousness: patient oriented x3 <LAINE Shannon Last Filed: 10/15/23 09:06> Resp: Effort & Inspection: normal respiratory effort <LAINE Shannon Last Filed: 10/15/23 09:06> GI: Inspection: No distended <LAINE Shannon Last Filed: 10/15/23 09:06> Palpation (GI): Soft to palpation, Tenderness to palpation present (GI) (left sided tenderness improved), no guarding and not rigid <Marti Wang PA-C - Last Filed: 10/15/23 09:06> Skin: General skin exam: no rashes or lesions noted <LAINE Shannon Last Filed: 10/15/23 09:06> Neuro: General: patient oriented x3 <LAINE Shannon Last Filed: 10/15/23 09:06> Objective Data Active Medications Acetaminophen (Acetaminophen 325 Mg Tablet) 650 mg PO Q6H PRN PRN Reason: Headache Last Admin: 10/13/23 17:58 Dose: 650 mg Documented By: HORACIO Clonazepam (Clonazepam 0.5 Mg Tablet) 0.5 mg PO DAILY PRN PRN Reason: anxiety Heparin Sodium (Porcine) (Heparin Sodium,Porcine 5,000 Unit/Ml Vial) 5,000 unit SUBCUT Q8H [facility] Last Admin: 10/15/23 06:20 Dose: 5,000 unit Documented By: JENNIFER Piperacillin Sod/Tazobactam (Sod 3.375 gm/ Sodium Chloride) 50 mls @ 100 mls/hr IV Q6H [facility] Last Infusion: 10/15/23 06:45 Dose: Infused Documented By: JENNIFER Ketorolac Tromethamine (Ketorolac Tromethamine 15 Mg/Ml Vial) 15 mg IVPUSH Q6H PRN PRN Reason: Pain, Moderate(Pain Scale 4-6) Last Admin: 10/14/23 22:58 Dose: 15 mg Documented By: SINGH Morphine Sulfate (Morphine Sulfate 4 Mg/Ml Cartridge) 3 mg IVPUSH Q3H PRN; Protocol PRN Reason: Pain, Severe (Pain Scale 7-10) Last Admin: 10/15/23 00:24 Dose: 3 mg Documented By: JENNIFER Ondansetron HCl (Ondansetron Hcl 4 Mg/2 Ml Vial) 4 mg IVPUSH Q6H PRN PRN Reason: Nausea Oxymetazoline HCl (Oxymetazoline Hcl 0.05 % Nasal 15 Ml [place]) 1 spray NOSTRIL-B BID PRN PRN Reason: Congestion Sodium Chloride (0.9 % Sodium Chloride Flush 3 Ml Syringe) 3 ml IVFLUSH QSHIFT [facility] Last Admin: 10/15/23 08:51 Dose: 3 ml Documented By: CORAZON Trazodone HCl (Trazodone Hcl 50 Mg Tablet) 50 mg PO BEDTIME [facility] Last Admin: 10/14/23 21:20 Dose: 50 mg Documented By: SINGH Venlafaxine HCl (Venlafaxine Hcl Er 150 Mg Cap.Er.24h) 300 mg PO BEDTIME [facility] Last Admin: 10/14/23 21:22 Dose: 300 mg Documented By: SINGH <Marti Wang PA-C - Last Filed: 10/15/23 09:06> Labs CBC & Chem 7: 10/15/23 08:17 10/15/23 08:17 <Marti Wang PA-C - Last Filed: 10/15/23 09:06> Labs: Laboratory Results - last 24 hr 10/15/23 08:17 MCV 91.4 MCH 31.3 MCHC 34.2 RDW 12.7 Plt Count 344 D MPV 10.3 Absolute Nucleated RBC 0.000 Nucleated RBC % (auto) 0.0 <Marti Wang PA-C - Last Filed: 10/15/23 09:06> Procedures Date of Service Date of Service: 10/15/23 <Marti Wang PA-C - Last Filed: 10/15/23 09:06> 10/15/23 <Ricardo Green MD - Last Filed: 10/15/23 09:52> Progress Note: A&P Assessment and plan (1) Diverticulitis of colon with perforation: Status: Acute <Marti Wang PA-C - Last Filed: 10/15/23 09:06> Assessment and Plan: pain much better hungry CT yesterday - inflammatory changes still present but better ok to try to advance diet 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 Feels improved this morning with less abd pain and abd less tender. Will advance to solid diet. Likely dc to home tomorrow if tolerating. <Marti Wang PA-C - Last Filed: 10/15/23 09:06> Time Spent With Patient Time: Total time managing care of this patient today ____ minutes. <Marti Wang PA-C - Last Filed: 10/15/23 09:06> Quality Stroke Does the patient have a stroke diagnosis?: No <LAINE Shannon Last Filed: 10/15/23 09:06> VTE Prior VTE?: No <Marti Wang PA-C - Last Filed: 10/15/23 09:06> VTE Risk Level:: Medical - moderate - high <Marti Wang PA-C - Last Filed: 10/15/23 09:06> VTE Device Contraindication: N/A - Device Ordered <LAINE Shannon Last Filed: 10/15/23 09:06> VTE Drug Contraindication: N/A - Med Ordered <LAINE Shannon Last Filed: 10/15/23 09:06>
[2023-10-15 09:15] LABS: Anion Gap 13 (12-20); Blood Urea Nitrogen 8 mg/dL (9-16); Calcium 9.8 mg/dL (8.4-10.2); Carbon Dioxide 29 mmol/L (22-29); Chloride 102 mmol/L (96-108); Creatinine Clr Calc Pharmacy 61.7; Estimated Glomerular Filt Rate 53; Glucose Random 90 mg/dL (60-115); Potassium 3.8 mmol/L (3.3-5.1); Sodium 140 mmol/L (135-145)
--- NOTE | 2023-10-15 13:44 | MHC.CM.PN ---
EMR REVIEWED. PATIENT IS NOT MEDICALLY CLEARED FOR DC. NO CHANGES TO PLAN. CM WILL CONTINUE TO FOLLOW.
[2023-10-15 15:52] VITALS: BP 121/82; PULSE 82; RESP 18; TEMP 36.4; O2SAT 95
[2023-10-15] MEDS: Acetaminophen 325 MG TABLET 650 MG PO (16:16)
[2023-10-15 19:23] VITALS: BP 118/73; PULSE 93; RESP 18; TEMP 36.2; O2SAT 94
[2023-10-15 19:27] VITALS: BP 101/68; PULSE 91; RESP 18; TEMP 36.9; O2SAT 94
[2023-10-15] MEDS: Venlafaxine HCl ER 150 MG CAP.ER.24H 300 MG PO (20:47)
[2023-10-15] MEDS: traZODone HCL 50 MG TABLET PO (20:47)
[2023-10-16 03:40] VITALS: BP 126/60; PULSE 73; RESP 16; TEMP 36.3; O2SAT 96
[2023-10-16] MEDS: Piperacillin Sodium/Tazobactam 3.375 GM in 0.9 % Sodium Chloride 50 ML IV ×2 (05:52→13:00)
[2023-10-16] MEDS: Heparin Sodium,Porcine 5,000 UNIT/ML VIAL 5000 UNIT SUBCUT ×2 (05:52→13:00)
[2023-10-16 07:11] VITALS: BP 149/95; PULSE 79; RESP 16; TEMP 36.5; O2SAT 96
[2023-10-16] MEDS: 0.9 % Sodium Chloride Flush 3 ML SYRINGE IVFLUSH (09:01)
--- NOTE | 2023-10-16 14:47 | P.DS_ITS ---
DS: Providers Provider Date of Service: 10/16/23 Date of admission: 10/11/23 18:22 Date of discharge: 10/16/23 Primary care physician: Aleisha Ruby MD Discharging clinician: Magda Ortiz DS: Diagnosis Discharge Diagnosis (1) Diverticulitis of colon with perforation: Start date: 10/11/23 Status: Acute DS: Summary Hospital Course Hospital Course: The pt is a 53 year old female with 3 epsodes of diverticulitis and hx o colon polyps /sp several cscope in the past. Now recovering after 5 days treatement for localized perf divertics. Doing well. maranda po diet and no fever chills and no pain. Plan to d c home on augmentin and fu with Dr Green in the office. Pt may be a good candidate for elective lap sig colectomy. Cont with low residue diet and aim for some weight loss. She understands and agrees with the plan Time spent discussing smoking cessation with patient: 3 to 10 minutes Time Attestation Discharge coordination time: Less than 30 minutes Quality: Safe Use of Opioids Does Pt have an Active Cancer Diagnosis on the Problem List?: No Quality: Stroke Does the patient have a stroke diagnosis?: No Reason for No Anti-thrombotic at DC: Drug treatment not indicated Reason for No Anticoagulant at DC: Drug treatment not indicated Reason Not Initiating IV-Tpa: Drug treatment not indicated Reason for No Anti-thrombotic by Day Two: Drug treatment not indicated Reason for No Statin at DC: Drug treatment not indicated Physical Exam Vital Signs: Vital Signs: Last Vital Signs Temp 97.7 F 10/16/23 07:11 Pulse 79 10/16/23 07:11 Resp 16 10/16/23 07:11 BP 149/95 H 10/16/23 07:11 Pulse Ox 96 10/16/23 07:11 O2 Del Method Room Air 10/16/23 07:11 BMI result Body Mass Index 33.6 GI: Other: abdomen is soft mild flank tenderness DS: Data Data Completed and Pending Labs on day of discharge: Preliminary micro results at discharge 10/11/23 18:15 Blood Culture - Preliminary Blood - Venous No growth after 48 hours. 10/11/23 17:17 Blood Culture - Preliminary Blood - Venous No growth after [address] scan - pelvis: Radiologist's impression: ITS Impressions Abdomen/Pelvis CT 10/11/23 14:33 IMPRESSION: 1. Acute diverticulitis with microperforation. 2. Hepatic steatosis. 3. Stable left adrenal gland adenoma. Fleischner guidelines were followed. Abdomen/Pelvis CT 10/14/23 09:06 IMPRESSION: 1. Redemonstration of colonic diverticulosis and diverticulitis predominantly involving the descending colon with wall thickening and pericolonic inflammatory changes, slightly improving. No focal collection identified. No free air identified. 2. Liver is enlarged and demonstrates decreased hepatic attenuation suggesting hepatic steatosis. 3. Splenic artery aneurysm with mild peripheral calcifications measuring up to 15 mm. 4. Bilateral hypodense renal foci the largest in the posterior aspect of the right renal interpolar region demonstrating fluid attenuation statistically representing cyst measuring up to 1.1 cm, not requiring follow-up. 5. Interval development of 1.2 cm radiodensity in the right anterior abdominal wall possibly representing sequela of subcutaneous injections. Discharge Plan Discharge Anticipated Discharge Date/Time: 10/14/23 12:11 Patient Disposition: Home, Self-Care Discharge Diagnosis: diverticulitis with microperforation Referrals: Aleisha Ruby MD [Primary Care Provider] - 1 Week Ricardo Green MD [Physician] - 2 Weeks Discharge Medications: New amoxicillin-pot clavulanate 875-125 mg tablet 1 tab PO BID Qty: 14 0RF Continued trazodone 50 mg tablet 50 mg PO BEDTIME Qty: 90 3RF oxymetazoline [Afrin (oxymetazoline)] 0.05 % [place],Non-Aerosol 1 spray INTRANASAL BID PRN (Reason: Congestion) glucosamine-chondroitin [Osteo Bi-Flex] 250-200 mg Tablet 1 tab PO DAILY Rx Instructions: give after food/meal [place] 155 mg Capsule 1 cap PO DAILY venlafaxine 150 mg capsule,extended release 24hr 300 mg PO BEDTIME Discharge Orders: Discharge Order (Routine); Ordered 10/16/23 Ordered By: Magda Ortiz Diet: Advance to usual diet Activity on Discharge: As tolerated Stand Alone Forms: Patient Portal Discharge page Activity Restrictions/Additional Instructions: Follow up in office in two weeks. ([phone]) Call Your Doctor If: ? ? -Your temperature exceeds 101.5? F? ? ? -You experience excessive pain or swelling ? ? -You have an unexpected reaction to medication ? ? -You experience continued vomiting/nausea Care Plan Goals: Return to baseline health and resume normal activities. Health Concerns: diverticulitis with microperforation Plan of Treatment: IV abx transitioned to PO F/u in office in 2 weeks Due for repeat screening colonoscopy Assessment: Improved
[2023-10-16 15:03] VITALS: BP 132/100; PULSE 88; RESP 18; TEMP 36.7; O2SAT 97
== END 2023-10-16 15:51 | disposition home or self-care (01) | DRG 244 ==
LOC: HO.ED 17:21 → HO.EDOVER 18:23 → HO.S3 10-12 07:50
PROVIDERS: Physician Assistant Medical; Admitting Provider Surgery; Emergency Provider Emergency Medicine; PCP Internal Medicine; Visit Provider Surgery
DX: K57.20 Diverticulitis of large intestine with perforation and abscess without bleeding (principal); Z23 Encounter for immunization; Z86.010 Personal history of colon polyps; Z79.899 Other long term (current) drug therapy
CPT/HCPCS: 36415; 74176; 74177; 80048; 80076; 81001; 83605; 83690; 83735; 85025; 85027; 87040; 90686; 99285; J1644; J1885; J2270; J2543; Q9967

== ENCOUNTER → 2023-10-11 18:22 | Outpatient (BNV) | payer BC, SELFPAY | PROVIDERS: Admitting Provider Surgery; Emergency Provider Emergency Medicine; PCP Internal Medicine; Visit Provider Physician Assistant Surgical | DX: K57.20 Diverticulitis of large intestine with perforation and abscess without bleeding (principal) | CPT/HCPCS: 99222; 99232; 99238; 99499 ==

== ENCOUNTER 2023-11-01 13:39 | Outpatient (AMB) | payer BC, SELFPAY ==
--- NOTE | 2023-11-01 13:46 | MHC.OFFVIS ---
Intake Vital Signs 11/01/23 13:51 Weight 188 lb BP 131/88 Blood Pressure Location Rt brachial Position Sitting Pulse 95 Intake Visit Reasons: diverticulitis with perforation Intake Note: This patient presents for inpatient follow-up for diverticulitis with perforation. Patient c/o; reports constant left abdominal pain. 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 Accompanied by: Self / Same As Patient Allergies paroxetine [From PAXIL] Allergy (Intermediate, Verified 11/01/23 13:52) RASH FACE/NECK adhesive [ADHESIVE] Allergy (Mild, Verified 11/01/23 13:52) BLISTERS adhesives, tape Allergy (Unknown, Uncoded 11/01/23 13:52) blisters Medication List - Last Reconciled 11/01/23 by Ricardo Green MD amoxicillin-pot clavulanate 875-125 mg 1 tab PO BID glucosamine-chondroitin 250-200 mg (Osteo Bi-Flex) 1 tab PO DAILY oxymetazoline 0.05% (Afrin (oxymetazoline)) 1 spray intranasal BID PRN soy isofla-blk cohosh-mag bark 155 mg ([place]) 1 cap PO DAILY trazodone 50 mg PO BEDTIME venlafaxine ER 300 mg PO BEDTIME HPI diverticulitis with perforation HPI Details 63-year-old female here for follow-up after diverticulitis. She was admitted to the hospital last October 11, 2023 for acute diverticulitis of the distal descending colon. He was on IV antibiotics and she was discharge after her 4th hospital day She says she still has pain but this time it is on the left upper quadrant area. Interestingly, she had a CAT scan done last February, showing inflammatory changes of the splenic flexure as well. She denies any fever or chills. She feels that her pain comes on whenever she eats a lot of fiber. [facility] Medical History Diverticulosis Abnormal colonoscopy Mammogram normal Normal Pap smear Annual physical exam Anxiety Insomnia Family History Mother Hypertension Thyroid disorder Father Diverticulitis Maternal Grandmother Thyroid disorder Social History Household Members: Children Household Members Other:: 14 years daughter, works in will be retired in July Housing: Apartment Do you presently have visiting nurse or other home services: No Alcohol intake: never Patient Tobacco Use Status: Never used Tobacco Second Hand Smoke Exposure: No service: No Current occupational status: employed Cognitive needs: No Hearing needs: No Vision needs: Yes Review of Systems Const Denies chills and Denies fever(s) Card Denies chest pain, Denies dyspnea and Denies dyspnea on exertion Resp Denies cough, Denies dyspnea and Denies dyspnea on exertion GI Denies hematochezia and Denies change in bowel habits Denies hematuria Musc Denies back pain and Denies limited range of motion Neuro Denies focal weakness and Denies convulsions Psych Denies depression and Denies mood swings Physical Exam Vital Signs: Last Vital Signs Pulse 95 11/01/23 13:51 BP 131/88 11/01/23 13:51 Const Other: Appears overweight General: comfortable and no acute distress Resp Effort & Inspection: normal respiratory effort GI Palpation (GI): Soft to palpation, not firm, Tenderness to palpation present (GI) (Describes very mild tenderness on the left upper quadrant towards the flank) and no guarding Assessment & Plan Assessment & Plan (1) Diverticulitis: Code(s): K57.92 - Diverticulitis of intestine, part unspecified, without perforation or abscess without bleeding Plan: She had been admitted to the hospital last 10/11/2023 for diverticulitis of the distal descending colon She describes pain on the left upper quadrant towards the flank. She does have a history of an inflammatory process in the splenic flexure on a CT scan done last February,. This could have been diverticulitis of the different segment as well In view of her persistent pain, I am going to schedule her for a repeat CT scan. I am also going to have her see her tire builder heavy service who had done her colonoscopy in 2019 I will see her in the office after her CT scan. Coding Level of Care Code Est Pt Level 3 (01408) Diagnoses Diverticulitis K57.92
[2023-11-01 13:51] VITALS: BP 131/88; PULSE 95
== END 2023-11-01 14:06 | disposition home or self-care (01) ==
PROVIDERS: PCP Internal Medicine; Visit Provider Surgery
DX: K57.92 Diverticulitis of intestine, part unspecified, without perforation or abscess without bleeding (principal)
CPT/HCPCS: 99213

== ENCOUNTER → 2023-11-01 13:39 | Outpatient (BNVA) | payer BC, SELFPAY | PROVIDERS: PCP Internal Medicine; Visit Provider Surgery ==

== ENCOUNTER 2023-11-13 09:22 | Outpatient (REF) | payer BC, SELFPAY ==
[2023-11-13 12:18] LABS: Blood Urea Nitrogen 15 mg/dL (9-16); Estimated Glomerular Filt Rate > 60
== END 2023-11-13 09:23 | disposition home or self-care (01) ==
LOC: HO.HMGCLDS 09:22
PROVIDERS: PCP Internal Medicine; Visit Provider Surgery
DX: K57.92 Diverticulitis of intestine, part unspecified, without perforation or abscess without bleeding (principal)
CPT/HCPCS: 36415; 82565; 84520

== ENCOUNTER 2023-11-15 11:13 | Outpatient (REF) | payer BC, SELFPAY ==
--- NOTE | ~2023-11-15 | CT_ITS ---
EXAMINATION: CT ABDOMEN AND PELVIS WITH CONTRAST CLINICAL INFORMATION: Left upper quadrant pain. COMPARISON: 10/14/2023 TECHNIQUE: Multidetector volumetric images were obtained from the superior aspect of the liver through the pubic symphysis following administration 85 mL of Omnipaque 350 intravenous contrast. Sagittal and coronal reformatted images were obtained on the technologist's workstation. Oral contrast: No This CT examination was performed using dose optimization techniques as appropriate, variously including the following: *Automated exposure control *Adjustment of mA and/or kV according to patient size (this includes techniques or standardized protocols for targeted exams where dose is matched to indication/reason for exam; i.e. extremities or head) *Use of iterative reconstruction technique DLP: 472 mGy-cm FINDINGS: LUNG BASES: No pleural or pericardial effusion. LIVER, GALLBLADDER, AND BILIARY TREE: The liver is decreased in attenuation. No suspicious hepatic lesion or biliary ductal dilatation is present. The gallbladder is unremarkable with no evidence of radiopaque gallstones, gallbladder wall thickening, or obvious pericholecystic inflammatory changes. PANCREAS: Unremarkable. SPLEEN: Unremarkable. ADRENAL GLANDS: Unremarkable. KIDNEYS AND URETERS: The kidneys are symmetric in size and enhancement. Subcentimeter right renal hypodensity is too small to characterize. No hydronephrosis or perinephric stranding. BLADDER: Unremarkable. GASTROINTESTINAL TRACT: Extensive diverticular disease of the colon without evidence for acute inflammation. Appendix is within normal limits. No small bowel obstruction. ABDOMINAL WALL: No significant hernia is appreciated. LYMPH NODES: No bulky lymphadenopathy. VASCULAR: Normal caliber abdominal aorta. Stable 1.4 cm splenic artery aneurysm. PELVIC VISCERA: Unremarkable. OSSEOUS STRUCTURES: No destructive bone lesions. CT/CT abdomen pelvis w IV con IMPRESSION: No acute abnormality in the abdomen or pelvis.
[2023-11-15] MEDS: iohexoL 350 MG/ML 100 ML INFUS..BTL IV (12:49)
== END 2023-11-15 11:14 | disposition home or self-care (01) ==
LOC: HO.CT 11:13
PROVIDERS: PCP Internal Medicine; Visit Provider Surgery
DX: K57.92 Diverticulitis of intestine, part unspecified, without perforation or abscess without bleeding (principal)
CPT/HCPCS: 74177; Q9967

== ENCOUNTER 2023-11-22 11:34 | Outpatient (AMB) | payer BC, SELFPAY ==
--- NOTE | 2023-11-22 11:32 | MHC.OFFVIS ---
Intake Vital Signs 11/22/23 11:39 Height 5 ft 3 in Weight 187 lb 6.287 oz BMI 33.2 BP 130/80 Blood Pressure Location Lt brachial Position Sitting Pulse 89 Intake Visit Reasons: left upper quadrant pain, CT results Intake Note: Patient is seen in office for CT scan results, following left upper quadrant pain. 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 Accompanied by: Self / Same As Patient Allergies paroxetine [From PAXIL] Allergy (Intermediate, Verified 11/22/23 11:39) RASH FACE/NECK adhesive [ADHESIVE] Allergy (Mild, Verified 11/22/23 11:39) BLISTERS adhesives, tape Allergy (Unknown, Uncoded 11/22/23 11:39) blisters Medication List - Last Reconciled 11/22/23 by Ricardo Green MD amoxicillin-pot clavulanate 875-125 mg 1 tab PO BID glucosamine-chondroitin 250-200 mg (Osteo Bi-Flex) 1 tab PO DAILY oxymetazoline 0.05% (Afrin (oxymetazoline)) 1 spray intranasal BID PRN soy isofla-blk cohosh-mag bark 155 mg ([place]) 1 cap PO DAILY trazodone 50 mg PO BEDTIME venlafaxine ER 300 mg PO BEDTIME HPI left upper quadrant pain, CT results HPI Details I had sent for a CT scan in view of her persistent pain on the left upper quadrant. She actually points to more of the lower most left ribs on this area that are tender. She denies GI complaints. Denies any fever or chills. She has good oral intake. She has good bowel movements. [facility] Medical History Diverticulosis Abnormal colonoscopy Mammogram normal Normal Pap smear Annual physical exam Anxiety Insomnia Family History Mother Hypertension Thyroid disorder Father Diverticulitis Maternal Grandmother Thyroid disorder Social History Household Members: Children Household Members Other:: 14 years daughter, works in will be retired in July Housing: Apartment Do you presently have visiting nurse or other home services: No Alcohol intake: never Patient Tobacco Use Status: Never used Tobacco Second Hand Smoke Exposure: No service: No Current occupational status: employed Cognitive needs: No Hearing needs: No Vision needs: Yes Review of Systems Const Denies chills and Denies fever(s) Card Denies chest pain, Denies dyspnea and Denies dyspnea on exertion Resp Denies cough, Denies dyspnea and Denies dyspnea on exertion GI Denies hematochezia and Denies change in bowel habits Denies hematuria Musc Denies back pain and Denies limited range of motion Neuro Denies focal weakness and Denies convulsions Psych Denies depression and Denies mood swings Physical Exam Vital Signs: Last Vital Signs Pulse 89 11/22/23 11:39 BP 130/80 11/22/23 11:39 BMI result Body Mass Index 33.2 Const General: comfortable and no acute distress Orientation/consciousness: patient oriented x3 Neck Neck: Yes no lymphadenopathy Chest Other: She actually has point tenderness on the left were most ribs laterally Resp Auscultation: clear to auscultation bilaterally Cardio Rhythm: regular rhythm GI Palpation (GI): Soft to palpation, nontender and no guarding Neuro General: patient oriented x3 Assessment & Plan Assessment & Plan (1) Diverticulitis: Code(s): K57.92 - Diverticulitis of intestine, part unspecified, without perforation or abscess without bleeding Plan: I have reviewed her CAT scan and this does not reveal any acute inflammatory changes. No evidence of recurrent or persistent diverticulitis. There has no suggestion of any intra-abdominal pathology. I explained these findings to her. She does point to more of the lower most ribs on the left side as where her pain is in right now. She does have some point tenderness in the area so costochondritis is also a differential. 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 Coding Level of Care Code Est Pt Level 3 (30187) Diagnoses Diverticulitis K57.92
[2023-11-22 11:39] VITALS: BP 130/80; PULSE 89; BMI 33.2
== END 2023-11-22 11:44 | disposition home or self-care (01) ==
LOC: HO.HGS 11:34
PROVIDERS: PCP Internal Medicine; Visit Provider Surgery
DX: K57.92 Diverticulitis of intestine, part unspecified, without perforation or abscess without bleeding (principal)
CPT/HCPCS: 99213

== ENCOUNTER → 2023-11-22 11:34 | Outpatient (BNVA) | payer BC, SELFPAY | PROVIDERS: PCP Internal Medicine; Visit Provider Surgery ==

== ENCOUNTER 2023-11-25 14:19 | Outpatient (AMB) | payer BC, SELFPAY ==
[2023-11-25 14:21] VITALS: BP 131/86; PULSE 122; BMI 33.0
--- NOTE | 2023-11-25 14:21 | MHC.OFFVIS ---
Intake Vital Signs 11/25/23 14:21 Height 5 ft 3 in Weight 186 lb 8.177 oz BMI 33.0 BP 131/86 Blood Pressure Location Lt brachial Position Sitting Pulse 122 H Intake Visit Reasons: Colonoscopy Screening Intake Note: New patient in office today for colonoscopy screening. CC: Patient seen in the hospital on 10/11 with diverticulitis. She c/o lower abdominal pain since yesterday, diarrhea, nausea, and a lot of gas. Last colonoscopy [address] Maravilla. Patient states this is the 3rd diverticulitis attack she has since her last colonoscopy. [employer] Required: No Accompanied by: Self / Same As Patient Allergies paroxetine [From PAXIL] Allergy (Intermediate, Verified 11/25/23 14:31) RASH FACE/NECK adhesive [ADHESIVE] Allergy (Mild, Verified 11/25/23 14:31) BLISTERS adhesives, tape Allergy (Unknown, Uncoded 11/22/23 11:39) blisters HPI Colonoscopy Screening HPI Details 53-year-old female here for preprocedural meeting to discuss a screening colonoscopy. She is [place] Aleisha Ruby [place] [facility] [place]. PMX High cholesterol Anxiety/insomnia Eczema Tubular adenoma Diverticulitis * SURGICAL HISTORY Colonoscopy-2019, [facility] * ALLERGIES Paxil Adhesive * Blue Badge Style LABS: Laboratory Tests 10/11/23 10/15/23 13:08 08:17 WBC 6.5 Hgb 13.9 Hct 40.6 Plt Count 344 D Estimated GFR 53 Total Bilirubin 0.3 Direct Bilirubin 0.1 AST 30 ALT 43 H Alkaline Phosphata se 81 2019 COLONOSCOPY-[facility] Findings: Terminal Ileum Not evaluated Cecum Normal Ascending Colon A 2-3 mm diminutive polyp removed with a cold biopsy and moderate diverticulosis Transverse Colon - Moderate diverticulosis Descending Colon A 1 cms polyp versus inverted diverticulum in the proximal AC removed with a cold biopsy and moderate diverticulosis Sigmoid Colon Severe diverticulosis with luminal narrowing Rectum A 3-4 mm sessile polyp removed with a cold biopsy. Ano-rectum - Hypertrophied anal papillae Colon preparation: Good Impression and Post Procedure Diagnosis: Colonoscopy Findings: Two polyps removed, a polyp versus fold/inverted diverticulum was biopsied. Random biopsies were obtained. Moderate diverticulosis seen in the entire colon - severe in SC Plan: Await pathology results Patient has an appointment on 08/11/19 in the GI Clinic with Len Maravilla M.D.- . Repeat Colonoscopy interval based on path results in 5 years if polyps are adenomatous and due to positive FH of colon polyps in her Dad Received: 09/17/18 Submitted by: LEN ALICIA MD MATERIAL RECEIVED: A. Ascending colon jessica B. Random colon bx 's, r/o microscopi c colitis C. Polyp vs fold, descending colon D. Rectal polyp -- DIAGNOSIS A. Colon, ascendin g, polyp, polypect julian: Hyperplastic polyp. B. Colon, random, biopsy: Colonic m ucosa within dionicio l limits; negative for active, chronic, and micro scopic colitis. C. Colon, descendi ng, polyp versus f old, biopsy: Clin icallconstantino polypoid co lonic mucosa noted; negative fo r a hyperplastic o r neoplastic proce ss D. Rectum, polyp, polypectomy: Hype rplastic polyp. TODAY'S VISIT The patient was upset that she was not scheduled with Dr. Maravilla, saying she specifically requested to see her. She also says that she is having ?a diverticulitis attack that started last night. ? Apparently she has been seeing Dr. Green for this after being hospitalized in October with about. She had been referred to him from Dr. Maravilla to discuss gas a possible sigmoidectomy due to extensive diverticulosis. It appears that they both have opted not to explore this possibility at this time. She did not like the volume of the go lytely and I will try to get Suprep. She denies any cardiac or respiratory problems. No ID problems There are no prior problems with anesthesia or sedation. She has a family history of colon polyps. I have sent leva and flagyl, but she is going to present to the ER because she says it always takes 2 weeks for the abx to work and they usually admit me. I don't see if she has been treated with anything but augmentin, and she has had that recently. [facility] Medical History Mammogram normal Normal Pap smear Annual physical exam Diverticulosis Anxiety Insomnia Surgical History H/O colonoscopy S/P ACL reconstruction History of section Family History Mother Hypertension Thyroid disorder Father Diverticulitis Maternal Grandmother Thyroid disorder Social History Household Members: Children Household Members Other:: 14 years daughter, works in will be retired in July Housing: Apartment Do you presently have visiting nurse or other home services: No Alcohol intake: never Patient Tobacco Use Status: Never used Tobacco Second Hand Smoke Exposure: No service: No Current occupational status: employed Cognitive needs: No Hearing needs: No Vision needs: Yes Review of Systems Const Denies fatigue, Denies fever(s), Reports headache(s), Reports malaise, Denies night sweats, Denies poor appetite and Denies weight loss ENT Reports Normal hearing present, Denies dental pain, Denies dysphagia, Reports headache(s), Denies hearing loss, Denies mouth pain, Denies odynophagia, Denies throat swelling, Denies tongue swelling and Reports other (Dentition adequate) Card Reports no additional complaints Resp Reports no additional complaints GI Details: Reports abdominal pain, Denies melena, Reports bloating, Denies hematochezia, Denies constipation, Denies GI cramping, Denies dysphagia, Denies excessive flatus, Denies early satiety, Denies heartburn, Denies diarrhea, Denies nausea, Denies odynophagia, Denies vomiting and Denies hematemesis Skin/Breast Denies pruritus, Denies lesions, Denies rash and Denies jaundice Neuro Reports Normal hearing present, Denies Abnormal speech present and Reports headache(s) Endo Denies fatigue Aller/Immun Denies throat swelling and Denies tongue swelling Physical Exam Vital Signs: Last Vital Signs Pulse 122 H 11/25/23 14:21 BP 131/86 11/25/23 14:21 BMI result Body Mass Index 33.0 Const General: cooperative, no acute distress, well developed and well groomed; No comfortable Nutritional Appearance: well nourished and obese Orientation/consciousness: oriented to person, oriented to place and oriented to time Limitations: No language barrier HEENT Head: Yes normocephalic and Yes atraumatic Eyes General: appearance normal, both eyes and all related structures Pupils: Equal, round and reactive pupils present Neck Neck: Yes normal visual inspection and Yes no lymphadenopathy Thyroid: Thyroid normal Resp Effort & Inspection: normal respiratory effort and able to speak in complete sentences Auscultation: clear to auscultation bilaterally Cardio Rate: regular rate Rhythm: regular rhythm Heart sounds: Normal, physiologic split S2 sound present Peripheral pulses: radial pulses present and posterior tibial pulses present GI Inspection: No distended, No Abdominal panniculus present and Yes obesity Palpation (GI): Soft to palpation, Tenderness to palpation present (GI) in the LLQ, no guarding, not rigid and No hepatosplenomegaly present Percussion: Yes normal to percussion Auscultation: normal bowel sounds Rectal Exam - Female: deferred Skin General skin exam: no rashes or lesions noted, turgor normal, skin not dry, no jaundice, No spider nevi and no striae Rashes: no rashes Nails: normal Neuro General: oriented to person, oriented to place and oriented to time Cranial nerves: Yes Equal, round and reactive pupils present and Yes Normal hearing present Speech: No Abnormal speech present Extrem General: Yes normal to inspection, No clubbing, No cyanosis and No edema Psych Appearance: grossly normal and well kempt Mental Status: mental status grossly normal Speech and movement: Normal speech and movement present Affect: normal affect Attitude: cooperative Thought process: Normal thought process present and not confabulating Thought content: Normal thought content present Insight: Fair insight present (Psych) and Limited insight present (Psych) Judgement: Fair judgement present (Psych) and Limited judgement present (Psych) Assessment & Plan Assessment & Plan (1) Pre-op examination: Code(s): Z01.818 - Encounter for other preprocedural examination (2) Diverticulitis large intestine: Comment: HISTORY OF BEING REFERRED TO SURGERY AND DISCUSSED SIGMOID RESECTION Code(s): K57.32 - Diverticulitis of large intestine without perforation or abscess without bleeding (3) Family history of polyps in the colon: Comment: Father Code(s): Z83.719 - Family history of colon polyps, unspecified Plan The patient was upset that she was not scheduled with Dr. Maravilla, saying she specifically requested to see her. She also says that she is having ?a diverticulitis attack that started last night. ? Apparently she has been seeing Dr. Green for this after being hospitalized in October with about. She had been referred to him from Dr. Maravilla to discuss gas a possible sigmoidectomy due to extensive diverticulosis. It appears that they both have opted not to explore this possibility at this time. She did not like the volume of the go lytely and I will try to get Suprep. She denies any cardiac or respiratory problems. No ID problems There are no prior problems with anesthesia or sedation. She has a family history of colon polyps. I have sent leva and flagyl, but she is going to present to the ER because she says it always takes 2 weeks for the abx to work and they usually admit me. I don't see if she has been treated with anything but augmentin, and she has had that recently. Medications: New levofloxacin 500 mg PO DAILY 10 days 10 tabs 0RF metronidazole 500 mg PO TID 10 days 30 tabs 0RF sodium,potassium,mag sulfates 17.5-3.13-1.6 gram (Suprep Bowel Prep Kit) 480 mL orally; 354 mL 0RF Z01.818 - Encounter for other preprocedural examination, Z83.719 - Family history of colon polyps, unspecified Coding Level of Care Code New Pt Level 3 (48366) Diagnoses Pre-op examination Z01.818 Diverticulitis large intestine K57.32 Family history of polyps in the colon Z83.719
== END 2023-11-25 14:52 | disposition home or self-care (01) ==
PROVIDERS: PCP Internal Medicine; Visit Provider Nurse Practitioner
DX: Z01.818 Encounter for other preprocedural examination (principal); Z12.11 Encounter for screening for malignant neoplasm of colon; Z83.719 Family history of colon polyps, unspecified; K57.32 Diverticulitis of large intestine without perforation or abscess without bleeding
CPT/HCPCS: S0285

== ENCOUNTER → 2023-11-25 14:19 | Outpatient (BNVA) | payer BC, SELFPAY | PROVIDERS: PCP Internal Medicine; Visit Provider Nurse Practitioner ==

== ENCOUNTER 2023-11-25 14:53 | Emergency (ER) | payer BC, SELFPAY ==
--- NOTE | ~2023-11-25 | CT_ITS ---
EXAMINATION: CT ABDOMEN AND PELVIS WITH CONTRAST CLINICAL INFORMATION: Left lower quadrant pain. COMPARISON: None available. TECHNIQUE: Multidetector volumetric images were obtained from the superior aspect of the liver through the pubic symphysis following administration 85 mL of Omnipaque 350 intravenous contrast. Sagittal and coronal reformatted images were obtained on the technologist's workstation. Oral contrast: No This CT examination was performed using dose optimization techniques as appropriate, variously including the following: *Automated exposure control *Adjustment of mA and/or kV according to patient size (this includes techniques or standardized protocols for targeted exams where dose is matched to indication/reason for exam; i.e. extremities or head) *Use of iterative reconstruction technique DLP: 670 mGy-cm FINDINGS: LUNG BASES: The visualized lung bases are unremarkable. LIVER, GALLBLADDER, AND BILIARY TREE: The liver is normal in size, shape, and attenuation. No focal hepatic lesion or biliary ductal dilatation is present. The gallbladder is unremarkable with no evidence of radiopaque gallstones, gallbladder wall thickening, or obvious pericholecystic inflammatory changes. PANCREAS: Unremarkable. SPLEEN: The spleen appears unremarkable. 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 ADRENAL GLANDS: Unremarkable. KIDNEYS AND URETERS: The kidneys are normal in size, shape, and attenuation. No hydronephrosis, hydroureter, or calculi seen. No perinephric stranding. BLADDER: Unremarkable. GASTROINTESTINAL TRACT: There is scattered stool and diverticuli seen throughout the colon with mural thickening and fat stranding in the sigmoid colon consistent acute diverticulitis. There is no pericolic air-fluid level, free air to suspect abscess upper variation. No proximal bowel obstruction. Retained barium is seen in one of the sigmoid diverticuli. The appendix is normal caliber. ABDOMINAL WALL: No significant hernia is appreciated. LYMPH NODES: Normal. VASCULAR: Unremarkable. PELVIC VISCERA: The uterus is anteverted and appears unremarkable. OSSEOUS STRUCTURES: No aggressive lytic or sclerotic process. There is mild degenerative disc changes CT/CT abdomen pelvis w IV con IMPRESSION: Diffuse colonic diverticulosis with sigmoid diverticulitis. There is no pericolic air-fluid level, free air or abscess. No proximal bowel obstruction. Fleischner guidelines were followed.
[2023-11-25 15:51] VITALS: BP 147/85; PULSE 110; RESP 16; TEMP 37.1; O2SAT 100; BMI 33.4
--- NOTE | 2023-11-25 15:51 | ED.GENADULT ---
HPI - General Adult General Chief complaint: Abdominal Pain Stated complaint: abd pain Time Seen by Provider: 11/25/23 15:59 Source: patient Mode of arrival: ambulatory Limitations: no limitations History of Present Illness HPI narrative: 53-year-old female history of Diverticulitis, hyperlipidemia, arthralgia, anxiety, hyperplastic colon polyp presents to the emergency department for left-sided flank pain and abdominal pain x few days worsening. Recently had diverticulitis w/ microperf per paitent and was admitted for about a week reports this feels similar. She states that her pain is persistent. Also diffuse headache X 3 days ( no trauma, visual disturbances, weakness, dizziness( No fevers, chills, chest pain, shortness of breath, changes in bowel habits or urinary habits nausea or vomiting. Patient is currently pending to hear back from GI for a date for colonoscopy. Related Data Home Medications Medication Instructions Recorded Confirmed oxymetazoline 0.05 % nasal spray 1 spray intranasal BID PRN 02/27/23 11/22/23 (Afrin (oxymetazoline)) Congestion glucosamine-chondroitin 250 mg-200 1 tab PO DAILY 10/11/23 11/22/23 mg tablet (Osteo Bi-Flex) soy isoflavone-black cohosh 1 cap PO DAILY 10/11/23 11/22/23 root-magnolia bark 155 mg capsule (Estroven) venlafaxine 150 mg 300 mg PO BEDTIME 10/11/23 11/22/23 capsule,extended release 24 hr Previous Rx's Medication Instructions Recorded trazodone 50 mg tablet 50 mg PO BEDTIME #90 tabs 05/06/23 amoxicillin 875 mg-potassium 1 tab PO BID #14 tabs 10/13/23 clavulanate 125 mg tablet levofloxacin 500 mg tablet 500 mg PO DAILY 10 days #10 tabs 11/25/23 metronidazole 500 mg tablet 500 mg PO TID 10 days #30 tabs 11/25/23 sodium,potassium,mag sulfates 17.5 480 ml PO .COMPLEX #354 mL 11/25/23 gram-3.13 gram-1.6 gram oral soln (Suprep Bowel Prep Kit) Allergies Allergy/AdvReac Type Severity Reaction Status Date / Time paroxetine [From PAXIL] Allergy Intermediate RASH Verified 11/25/23 15:51 FACE/NECK adhesive [ADHESIVE] Allergy Mild BLISTERS Verified 11/25/23 15:51 adhesives, tape Allergy Unknown blisters Uncoded 11/22/23 11:39 [facility] Past Medical History Medical History Mammogram normal Normal Pap smear Annual physical exam Diverticulosis Anxiety Insomnia Surgical History H/O colonoscopy S/P ACL reconstruction History of section Family History Family History Mother Hypertension Thyroid disorder Father Diverticulitis Maternal Grandmother Thyroid disorder Social History Social History Household Members: Children Household Members Other:: 14 years daughter, works in will be retired in July Housing: Apartment Do you presently have visiting nurse or other home services: No Alcohol intake: never Patient Tobacco Use Status: Never used Tobacco Second Hand Smoke Exposure: No Advance Directives: No Advance Directives Information Provided: No service: No Current occupational status: employed Cognitive needs: No Hearing needs: No Vision needs: Yes Physical Exam ED Vital Signs: Vital Signs - 24 hr 11/25/23 15:51 11/25/23 19:42 Temperature 98.8 F 98.3 F Pulse Rate 110 H 86 Respiratory Rate 16 16 Blood Pressure 147/85 H 116/77 Pulse Oximetry 100 98 Oxygen Delivery Method Room Air Room Air BMI result Body Mass Index 33.4 Course Course Course Narrative: This is an RME: Additional HPI, ROS, PE not included below will be deferred to primary provider. This is a 16-owzx-kch-female, with a hx of diverticulosis, presenting to the emergency department for evaluation of left-sided flank pain and abdominal pain xfew days worsening. Recently had diverticulitis w/ microperf per paitent. She states that her pain is persistent. Also diffuse headache X 3 days No fevers, chills, nausea or vomiting. Plan: Labs, UA Reevaluation(s) Reevaluation #1: CBC with leukocytosis. Chemistry no acute findings requiring intervention. Normal lipase. CT scan pending. Time: 16:43 Reevaluation #2: Scan pending sign out to Bro JANG Time: 20:36 Medications Administered Discontinued Medications Generic Name Dose Route Start Last Admin Trade Name Brad PRN Reason Stop Dose Admin Sodium Chloride 1,000 mls @ 999 mls/hr 11/25/23 16:00 11/25/23 19:48 Ns IV 11/25/23 17:00 Infused .Q1H1M ZULAY Infusion Piperacillin Sod/Tazobactam 50 mls @ 100 mls/hr 11/25/23 16:39 11/25/23 17:07 Sod 3.375 gm/ Sodium Chloride IV 11/25/23 17:08 0 mls/hr ONCE ONE Infusion Iohexol 85 ml 11/25/23 19:17 11/25/23 19:17 Iohexol 350 Mg/Ml 100 Ml Infus..Btl IV 11/25/23 19:18 85 ml ONCE ONE Administration Ketorolac Tromethamine 30 mg 11/25/23 15:56 11/25/23 16:24 Ketorolac Tromethamine 30 Mg/Ml Vial IVPUSH 11/25/23 15:57 30 mg ONCE ONE Administration Ondansetron HCl 4 mg 11/25/23 15:56 11/25/23 16:24 Ondansetron Hcl 4 Mg/2 Ml Vial IVPUSH 11/25/23 15:57 4 mg ONCE ONE Administration Medical Decision Making Medical Decision Making [facility] Narrative: 1600 53-year-old female presents with complaints of left lower quadrant pain and diffuse headache for the past few days. Physical exam neuro nonfocal. Left lower quadrant tenderness on palpation. Headache likely typical headache vs secondary to pain or viral illness. Unlikely intracranial hemorrhage, stroke, posterior stroke. Left lower quadrant abdominal pain likely diverticulitis. Unlikely obstruction, acute abdomen, appendicitis, pancreatitis, cholecystitis, cholangitis. Plan at this time labs, imaging, urine. Will hold give Toradol and Zofran. Will also give fluids Differential Diagnosis Differential Diagnoses: The differential diagnosis associated with the presentation includes Headache likely typical headache vs secondary to pain or viral illness. Unlikely intracranial hemorrhage, stroke, posterior stroke. Left lower quadrant abdominal pain likely diverticulitis. Unlikely obstruction, acute abdomen, appendicitis, pancreatitis, cholecystitis, cholangitis. Admission/Observation Consideration of admission/observation: Escalation of care including admission/observation considered possible Lab Data [facility] Lab Attestation statement: I reviewed the patient's lab results. 11/25/23 16:04 11/25/23 16:04 Labs: Lab Results 11/25/23 11/25/23 Range/Units 16:04 16:48 WBC 18.0 H (4.8-10.8) X10*3/uL RBC 4.85 (4.20-5.50) X10*6/uL Hgb 15.2 (12.0-16.0) g/dl Hct 44.7 (37.0-47.0) % MCV 92.2 (80.0-98.0) fL MCH 31.3 (27.0-33.0) pg MCHC 34.0 (31.0-35.0) g/dl RDW 13.3 (11.0-16.0) % Plt Count 376 (160-400) X10*3/uL MPV 10.4 (9.4-12.3) fL Immature Gran % (Auto) 0.4 (0.0-0.4) % Neut % (Auto) 73.0 (45-73) % Lymph % (Auto) 19.0 L (20-40) % [place] % (Auto) 6.7 (2-11) % Eos % (Auto) 0.6 (0-4) % Baso % (Auto) 0.3 (0-2) % Lymph # (Auto) 3.4 (1.2-4.9) X10*3/uL [place] # (Auto) 1.2 (0.1-1.2) X10*3/uL Eos # (Auto) 0.1 (0.0-0.4) X10*3/uL Baso # (Auto) 0.1 (0.0-0.2) X10*3/uL Abs Immat Gran (auto) 0.08 H (0.00-0.03) X10*3/uL Absolute Neuts (auto) 13.1 H (2.0-8.3) x10*3/uL Absolute Nucleated RBC 0.000 (0.0-0.012) X10*3/uL Nucleated RBC % (auto) 0.0 (0.0-0.2) /100WBC Sodium 139 (135-145) mmol/L Potassium 4.1 (3.3-5.1) mmol/L Chloride 103 (96-108) mmol/L Carbon Dioxide 27 (22-29) mmol/L Anion Gap 13 (12-20) BUN 14 (9-16) mg/dL Creatinine 0.86 (0.5-1.4) mg/dL Estim Creat Clear Calc 76.6 Estimated GFR > 60 Random Glucose 108 (60-115) mg/dL Lactic Acid 0.8 (0.5-2.0) mmol/L Calcium 9.6 (8.4-10.2) mg/dL Magnesium 2.1 (1.6-2.6) mg/dL Total Bilirubin 0.3 (0.0-1.0) mg/dL AST 17 (5-31) U/L ALT 22 (0-31) U/L Alkaline Phosphatase 84 (39-117) U/L Total Protein 8.1 H (6.5-8.0) g/dL Albumin 4.4 (3.5-5.0) g/dL Lipase 15 (8-78) U/L Independent Interpretation I performed an independent interpretation of an: CT Scan Radiology Impression Discussion of test interpretation with radiology: I have reviewed the radiologist's reading. External Record Review External record reviewed: Inpatient record, Office record, Outpatient record, Prior outpatient labs, Prior outpatient radiology, Primary care record and Outside ED record Chronic Conditions Patient?s care impacted by: Other (Diverticulitis, hyperlipidemia, arthralgia, anxiety, hyperplastic colon polyp) Discharge Plan Discharge Clinical Impression: Diverticulitis Patient Disposition: Still a Patient Prescriptions: No Action trazodone 50 mg tablet 50 mg PO BEDTIME Qty: 90 3RF oxymetazoline [Afrin (oxymetazoline)] 0.05 % [place],Non-Aerosol 1 spray INTRANASAL BID PRN (Reason: Congestion) glucosamine-chondroitin [Osteo Bi-Flex] 250-200 mg Tablet 1 tab PO DAILY Rx Instructions: give after food/meal Estroven 155 mg Capsule 1 cap PO DAILY venlafaxine 150 mg capsule,extended release 24hr 300 mg PO BEDTIME amoxicillin-pot clavulanate 875-125 mg tablet 1 tab PO BID Qty: 14 0RF levofloxacin 500 mg tablet 500 mg PO DAILY 10 Days Qty: 10 0RF metronidazole 500 mg tablet 500 mg PO TID 10 Days Qty: 30 0RF sodium,potassium,mag sulfates [Suprep Bowel Prep Kit] 17.5-3.13-1.6 gram recon soln 480 ml PO .COMPLEX Qty: 354 0RF Rx Instructions: 480 mL orally;
[2023-11-25 16:18] LABS: MANUAL DIFF FLAG NO
[2023-11-25 16:21] LABS: Basophils Absolute Auto 0.1 X10*3/uL (0.0-0.2); Basophils Percent Auto 0.3 % (0-2); Eosinophils Absolute Auto 0.1 X10*3/uL (0.0-0.4); Eosinophils Percent Auto 0.6 % (0-4); Hematocrit 44.7 % (37.0-47.0); Hemoglobin 15.2 g/dl (12.0-16.0); Imm Gran Abs Auto 0.08 X10*3/uL (0.00-0.03); Imm Gran Pct Auto 0.4 % (0.0-0.4); Lymphocytes Absolute Auto 3.4 X10*3/uL (1.2-4.9); Mean Corpuscular Hemoglobin 31.3 pg (27.0-33.0); Mean Corpuscular Volume 92.2 fL (80.0-98.0); Mean Platelet Volume 10.4 fL (9.4-12.3); Monocytes Absolute Auto 1.2 X10*3/uL (0.1-1.2); Monocytes Percent Auto 6.7 % (2-11); Neutrophils Absolute Auto 13.1 x10*3/uL (2.0-8.3); Platelet Count 376 X10*3/uL (160-400); Red Blood Count 4.85 X10*6/uL (4.20-5.50); Red Cell Distribution Width 13.3 % (11.0-16.0)
[2023-11-25] MEDS: ondansetron HCL 4 MG/2 ML VIAL IVPUSH (16:24)
[2023-11-25] MEDS: 0.9 % Sodium Chloride 1,000 ML 999 ML IV (16:24)
[2023-11-25] MEDS: Ketorolac Tromethamine 30 MG/ML VIAL IVPUSH (16:24)
--- NOTE | 2023-11-25 16:30 | PC.NURSE ---
IV established, labs drawn/sent. Pt medicated per NOV. Pt given warm packs for abdominal pain.
[2023-11-25 16:35] LABS: Alanine Aminotransferase 22 U/L (0-31); Albumin Level 4.4 g/dL (3.5-5.0); Alkaline Phosphatase 84 U/L (39-117); Anion Gap 13 (12-20); Aspartate Amino Transferase 17 U/L (5-31); Bilirubin Total 0.3 mg/dL (0.0-1.0); Blood Urea Nitrogen 14 mg/dL (9-16); Calcium 9.6 mg/dL (8.4-10.2); Carbon Dioxide 27 mmol/L (22-29); Chloride 103 mmol/L (96-108); Creatinine Clr Calc Pharmacy 76.6; Estimated Glomerular Filt Rate > 60; Glucose Random 108 mg/dL (60-115); Lipase 15 U/L (8-78); Magnesium 2.1 mg/dL (1.6-2.6); Potassium 4.1 mmol/L (3.3-5.1); Sodium 139 mmol/L (135-145); Total Protein 8.1 g/dL (6.5-8.0)
[2023-11-25] MEDS: Piperacillin Sodium/Tazobactam 3.375 GM in 0.9 % Sodium Chloride 50 ML IV (16:55)
[2023-11-25 17:08] LABS: Lactic Acid 0.8 mmol/L (0.5-2.0)
[2023-11-25] MEDS: iohexoL 350 MG/ML 100 ML INFUS..BTL 85 ML IV (19:17)
--- NOTE | 2023-11-25 19:40 | PC.NURSE ---
patient awake and alert. skin pwd, resp even and non labored, speaking in full, clear sentences. reports lower mid abd pain and diarrhea since last night, nausea improved post zofran. awaiting results of abd CT. patient aware of plan of care
[2023-11-25 19:42] VITALS: BP 116/77; PULSE 86; RESP 16; TEMP 36.8; O2SAT 98
[2023-11-25] MEDS: Butalb/Acetamin/Caff 50/325/40 TABLET 1 TAB PO (22:02)
[2023-11-25 22:07] VITALS: BP 124/71; PULSE 85; RESP 16; TEMP 37.2; O2SAT 99
== END 2023-11-25 22:08 | disposition home or self-care (01) ==
PROVIDERS: Physician Assistant; Emergency Provider Emergency Medicine; PCP Internal Medicine
DX: K57.32 Diverticulitis of large intestine without perforation or abscess without bleeding (principal); R10.32 Left lower quadrant pain; R51.9 Headache, unspecified; R11.2 Nausea with vomiting, unspecified; Z79.899 Other long term (current) drug therapy
CPT/HCPCS: 36415; 74177; 80053; 83605; 83690; 83735; 85025; 87040; 96361; 96374; 96375; 99284; 99285; J1885; J2405; J2543; Q9967

== ENCOUNTER 2024-02-18 08:31 | Outpatient (AMB) | payer BC, SELFPAY ==
--- OUTSIDE RECORDS SUMMARY | 2024-02-18 08:32 | XMS_ITS | Continuity of Care Document ---
Author Organization [facility] Address [address] [place] [address]- Encounter [id number] [id number] Date(s): 09/28/23 - 09/28/23 [facility] [address] [place] [place] [address]- Encounter Diagnosis Left upper quadrant abdominal pain(Discharge Diagnosis) - 09/28/23 Discharge Disposition: Home or Self Care Attending Physician: Alexander Bo MD Allergies, Adverse Reactions, Alerts Substance Reaction Severity Status Paxil Rash Moderate Active Medications Bactrim DS 800 mg-160 mg oral tablet 1 Tab Tab, PO, BID, 10 Day, 20 Tab, Refills: 0, 10/02/23 12:02:00 PM PST, Acute, Route to Pharmacy Electronically, [facility] #[id number] Start Date: 09/22/23 Stop Date: 10/02/23 Status: Ordered dicyclomine 10 mg oral capsule 1 Cap Cap, PO, QID, PRN, abdominal pain/spasm, Qty: 30 Cap, Refills: 0, Maintenance, Route to Pharmacy Electronically, [facility] #[id number] Start Date: 09/28/23 Stop Date: 10/05/23 Status: Ordered Effexor PO, Refills: 0, Maintenance Start Date: 09/28/23 Status: Ordered ketorolac 10 mg, IV Push, INJ, x1 STAT, Start: 09/28/23 12:44:00 PM PST, Stop: 09/28/23 12:54:44 PM PST, For ED Use Only Notes: Note dose, age, renal function, duration C: Anti-inflammatory (NSAID); I: Pain Control; SE: heartburn, nausea Start Date: 09/28/23 Stop Date: 09/28/23 Status: Completed omeprazole 40 mg oral enteric coated capsule 1 Cap Cap, ER, PO, Daily, Qty: 30 Cap, Refills: 0, Maintenance, Route to Pharmacy Electronically, [facility] #[id number] Start Date: 09/28/23 Stop Date: 10/28/23 Status: Ordered traZODone PO, Refills: 0, Maintenance Start Date: 09/28/23 Status: Ordered Problem List Condition Confirmation Course Effective Dates Status Health St atus Informant Anxiety Confirmed Active Constipation Confirmed Active Diverticulitis Confirmed Active Procedures Procedure Date Related Diagnosis Body Site Status section Complete d Results Laboratory List Name Date CBC w/Diff* (man diff if indicated) 09/28 Comprehensive Metabolic Pane l (CMP (BMP + ALB, Tot Prot, Bili, CA, Alk Phos, ALT, AST)) 09/28/23 Lactic Acid w/Reflex 09/28/23 Lipase Level 09/28/23 Urinalysis UA Rflx Microscop Cult if Ind 09/28/23 zUrinalysis Microscopic 09/28/23 Most recent to oldest [Reference Range]: 1 Urine WBCs 0-4 (09/28/23 1:13 PM) CBC Scan Auto Diff (09/28/23 1:13 PM) Lymphs [10.0-55.0 %] 36.0 % (09/28/23 1:13 PM) Monos. [0.0-15.0 %] 9.1 % (09/28/23 1:13 PM) Baso. [0.0-3.0 %] 1.3 % (09/28/23 1:13 PM) Neuts [35.0-80.0 %] 49.2 % (09/28/23 1:13 PM) Eos. [0.0-9.0 %] 4.4 % (09/28/23 1:13 PM) Glucose Level [70-105 mg/dL] 91 mg/dL (09/28/23 1:13 PM) UA Squam Epithelial None (09/28/23 1:13 PM) UA Urobilinogen 0.2 E.U./dL (09/28/23 1:13 PM) Urine Culture if Indicated Not Indicated 1 *NA* (09/28/23 1:13 PM) AST [5-34 Units/L] 22 Units/L (09/28/23 1:13 PM) ABS Neut [1.7-8.6 thousand/uL] 3.9 thous and/uL (09/28/23 1:13 PM) nRBC Auto 0 *NA* (09/28/23 1:13 PM) eGFRcr [>=90 mL/min/1.73m2] 57 mL/min/1. 73m2 2 *L* (09/28/23 1:13 PM) A/G Ratio 1 *NA* (09/28/23 1:13 PM) ABS Baso [0.0-0.3 thousand/uL] 0.1 thous and/uL (09/28/23 1:13 PM) ABS Eos [0.0-1.0 thousand/uL] 0.3 thousa nd/uL (09/28/23 1:13 PM) ABS Lymph [0.5-5.9 thousand/uL] 2.8 thou sand/uL (09/28/23 1:13 PM) ABS [place] [0.0-1.6 thousand/uL] 0.7 thous and/uL (09/28/23 1:13 PM) Albumin [3.5-5.0 gm/dL] 4.4 gm/dL (09/28/23 1:13 PM) Alkphos [40-150 Units/L] 74 Units/L (09/28/23 1:13 PM) ALT [6-55 Units/L] 27 Units/L (09/28/23 1:13 PM) Anion Gap [7-15 mmol/L] 12 mmol/L (09/28/23 1:13 PM) Appearance Clear (09/28/23 1:13 PM) Bili Total [0.2-1.2 mg/dL] 0.4 mg/dL (09/28/23 1:13 PM) BUN [8-25 mg/dL] 13 mg/dL (09/28/23 1:13 PM) BUN/Scrap Worker Ratio [8.0-24.0] 11.5 (09/28/23 1:13 PM) Chloride [98-107 mmol/L] 104 mmol/L (09/28/23 1:13 PM) CO2 [20-27 mmol/L] 23 mmol/L (09/28/23 1:13 PM) Color Yellow (09/28/23 1:13 PM) Creatinine [0.57-1.25 mg/dL] 1.13 mg/dL (09/28/23 1:13 PM) Globulin 3 gm/dL *NA* (09/28/23 1:13 PM) Hct [37.0-47.0 %] 43.4 % (09/28/23 1:13 PM) Hgb [11.5-16.0 gm/dL] 14.7 gm/dL (09/28/23 1:13 PM) Lactic Acid [0.5-1.9 mmol/L] 0.7 mmol/L (09/28/23 1:13 PM) Lipase [8.0-78.0 Units/L] 26.0 Units/L (09/28/23 1:13 PM) MCH [27.0-34.0 pg] 31.2 pg (09/28/23 1:13 PM) MCHC [32.0-37.0 gm/dL] 33.8 gm/dL (09/28/23 1:13 PM) MCV [80.0-100.0 fL] 92.3 fL (09/28/23 1:13 PM) MPV [7.5-11.5 fL] 8.4 fL (09/28/23:13 PM) Plt [130-400 thousand/uL] 334 thousand/u L (09/28/23:13 PM) Protein, Total [6.0-8.3 gm/dL] 7.8 gm/dL (09/28/23 1:13 PM) RBC [4.00-5.40 million/uL] 4.71 million/ uL (09/28/23 1:13 PM) RDW [11.5-16.0 %] 13.5 % (09/28/23 1:13 PM) Sodium [136-145 mmol/L] 139 mmol/L (09/28/23:13 PM) Specific [place] [1.003-1.035] <=1.005 *ABN* (09/28/23 1: PM) UBacteria None (09/28/23 1: PM) UBilirubin Negative (1/23/24 1:13 PM) UBlood 1+ *ABN* (09/28/23 1:13 PM) UGlucose Negative (09/28/23 1:13 PM) UKetones Negative (09/28/23 1:13 PM) ULeukocyte Esterase Negative (09/28/23 1:13 PM) UNitrite Negative (09/28/23 1:13 PM) UpH 6.0 (09/28/23 1:13 PM) UProtein Negative (09/28/23 1:13 PM) URBC 0-4 (09/28/23 1:13 PM) WBC [4.5-13.5 thousand/uL] 7.9 thousand/ uL (09/28/23 1:13 PM) Potassium [3.5-5.1 mmol/L] 4.4 mmol/L (09/28/23 1:13 PM) Calcium [8.4-10.2 mg/dL] 9.5 mg/dL (09/28/23 1:13 PM) 1Result Comment: Urine Culture not ordered due to one or more of the following conditions: *Patient Age >=2 *UA WBC <10 *The always cultured indication reason chosen was not: Urological Procedure ANC <500 w symptoms Renal Transplant 1st 30 d Organ Donor 2Interpretive Data: As of 03-31-2022, reported eGFR is based on the CKD-EPI 2020 equation that does not use a race coefficient. For eGFR of 45-59 mL/min/1.73m2 NKF, KDOQI, and KDIGO guidelines recommend confirming current results with new values based on eGFR calculated using both creatinine and cystatin C. Cystatin C is recommended in the outpatient patient setting for purposes of confirming chronic kidney disease, rather than in the acute setting for acute kidney injury or failure. The eGFRcr equation has not been validated on patients <18 years and will not be performed. Radiology Reports * Exam Date Time Procedure Performing Provider Status 09/28/23 3:32 PM US Abdomen Limited Contributor_system, [facility]GRAD; Auth (Verified) Notes: (US Abdomen Limited) Reason For Exam: Abdomen Pain Epigastric RADRPT PROCEDURE INFORMATION: Exam: US Abdomen, Limited; Right Upper Quadrant Exam date and time: 09/28/2023 3:10 PM Age: 53 years old Clinical indication: Abdomen pain epigastric TECHNIQUE: Imaging protocol: Real time ultrasound of the abdomen with image documentation. Limited exam focused on the right upper quadrant. COMPARISON: CT Abdomen+Pelvis w IV Con 09/28/2023 2:41 PM FINDINGS: Liver: There is increased echogenicity of the liver consistent with fatty infiltration, with a hypoechoic 2.6 cm focus in the left lobe likely representing focal fatty sparing. The main portal vein appears patent and demonstrates hepatopetal flow. Gallbladder: Normal. No gallstones. There is no gallbladder wall thickening. Biliary ducts: Normal. No stones. No dilation. Pancreas: The visualized pancreas is unremarkable. Right kidney: The right kidney measures 9.5 cm. No mass. No hydronephrosis. IMPRESSION: Fatty infiltration of the liver with focal fatty sparing in the left lobe. * * * F I N A L * * * Dictated by: Johnnie Ya MD Electronically signed by: Johnnie Ya MD Transcribed by:AV , , , S: 09/28/2023 15:51 * * * F I N A L * * * * Exam Date Time Procedure Performing Provider Status 09/28/23 2:[address] Abdomen+Pelvis w IV Con Contributor _system, [facility]AD; Auth (Verified) Notes: (CT Abdomen+Pelvis w IV Con) Reason For Exam: Abdominal Pain RADRPT Radiation Dose CTDIVOL = 0 (mGy): DLP = 646.6 (mGy-cm) PROCEDURE INFORMATION: Exam: CT Abdomen And Pelvis With Contrast Exam date and time: 09/28/2023 2:41 PM Age: 53 years old Clinical indication: Abdominal pain; Additional info: Left sided abdominal pain TECHNIQUE: Imaging protocol: Computed tomography of the abdomen and pelvis with contrast. Radiation optimization: All CT scans at this facility use at least one of these dose optimization techniques: automated exposure control; mA and/or kV adjustment per patient size (includes targeted exams where dose is matched to clinical indication); or iterative reconstruction. Contrast material: ISOVUE 370; Contrast volume: 100 ml; Contrast route: INTRAVENOUS (IV); COMPARISON: CR XR Abdomen AP 09/22/2023 11:57 AM RADIATION DOSE METRICS: Total DLP (mGy-cm): 646.6 FINDINGS: Liver: There is diffuse hepatic steatosis. There are no focal liver lesions seen. Gallbladder and bile ducts: No calcified stones. No ductal dilation. Pancreas: No peripancreatic inflammatory change. No ductal dilation. Spleen: No splenomegaly. No discrete mass. Adrenal glands: Normal. No mass. Kidneys and ureters: Normal. No hydronephrosis. Stomach and bowel: There is moderate diffuse colonic diverticulosis without evidence of acute diverticulitis. Nonopacified bowel loops are normal in caliber. Appendix: No evidence of appendicitis. Intraperitoneal space: No ascites. No free air. No significant fluid collection. Vasculature: No atherosclerotic change. No abdominal aortic aneurysm. Lymph nodes: No enlarged lymph nodes. Urinary bladder: Unremarkable as visualized. Reproductive: Unremarkable as visualized. Bones/joints: No degenerative changes. No acute fracture. Soft tissues: Unremarkable. IMPRESSION: 1. Moderate diffuse colonic diverticulosis without evidence of acute diverticulitis. 2. Hepatic steatosis. * * * F I N A L * * * Dictated by: Barby Hines DO Electronically signed by: Barby Hines DO Transcribed by:FRANCK , , , S: 09/28/2023 15:04 * * * F I N A L * * * Vital Signs Most recent to oldest [Reference Range]: 1 2 3 Temperature PO [36-37.5 deg C] 36.8 deg C (09/28/23 4:00 PM) 36.8 deg C (09/28/23 12:51 PM) Temperature Temporal Artery [36.4-37.5 deg C] 36.7 deg C (09/28/23 6:43 PM) Heart Rate [51-119 bpm] 84 bpm (09/28/23 6:43 PM) 87 bpm (09/28/23 4:00 PM) 93 bpm (09/28/23 12:51 PM) Blood Pressure [91-139/51-89 mm Hg] 138/82mm Hg (09/28/23 6:43 PM) 142/87mm Hg *H* (09/28/23 4:00 PM) 136/88mm Hg (09/28/23 12:51 PM) Resp Rate (Monitor) [13-20 Breaths/Min] 16 Breaths/Min (09/28/23 6:43 PM) 16 Breaths/Min (09/28/23 4:00 PM) 20 Breaths/Min (09/28/23 12:51 PM) SPO2 [92 %] 97 % (09/28/23 6:43 PM) 97 % (09/28/23 4:00 PM) 98 % (09/28/23 12:51 PM) Oxygen Method Room air (09/28/23 4:00 PM) Glucose Level [70-105 mg/dL] 91 mg/dL (09/28/23 1:13 PM) Height 160.02 cm (09/28/23 12:51 PM) Drug Calc Weight (kg) 81.633 kg (09/28/23 12:51 PM) Weight Method Stated (09/28/23 12:51 PM) BMI 31.88 kg/m2 (09/28/23 12:51 PM) Living Situation Lives with family (09/28/23 12:51 PM) Sensory Deficits None (09/28/23 12:51 PM) Social History Social History Type Response Smoking Status Never (less than 100 in lifetime) entered on: 09/28/23 Sex Female Hospital Discharge Instructions Patient Education 09/28/2023 17:18:59 Abdominal Pain, Adult, [id number] Abdominal Pain, Adult Many things can cause belly (abdominal) pain. Most times, belly pain is not dangerous. Many cases of belly pain can be watched and treated at home. Sometimes, though, belly pain is serious. Your doctor will try to find the cause of your belly pain. Follow these instructions at home: Medicines ??? Take [id number]-jrtmvdx and prescription medicines only as told by your doctor. ??? Do not take medicines that help you poop (laxatives) unless told by your doctor. General instructions ??? Watch your belly pain for any changes. ??? Drink enough fluid to keep your pee (urine) pale yellow. ??? Keep all follow-up visits as told by your doctor. This is important. Contact a doctor if: ??? Your belly pain changes or gets worse. ??? You are not hungry, or you lose weight without trying. ??? You are having trouble pooping (constipated) or have watery poop (diarrhea) for more than 2???3days. ??? You have pain when you pee or poop. ??? Your belly pain wakes you up at night. ??? Your pain gets worse with meals, after eating, or with certain foods. ??? You are vomiting and cannot keep anything down. ??? You have a fever. ??? You have blood in your pee. Get help right away if: ??? Your pain does not go away as soon as your doctor says it should. ??? You cannot stop vomiting. ??? Your pain is only in areas of your belly, such as the right side or the left lower part of the belly. ??? You have bloody or black poop, or poop that looks like tar. ??? You have very bad pain, cramping, or bloating in your belly. ??? You have signs of not having enough fluid or water in your body (dehydration), such as: ??? Dark pee, very little pee, or no pee. ??? Cracked lips. ??? Dry mouth. ??? Sunken eyes. ??? Sleepiness. ??? Weakness. ??? You have trouble breathing or chest pain. Summary ??? Many cases of belly pain can be watched and treated at home. ??? Watch your belly pain for any changes. ??? Take xxje-qfv-ukviwny and prescription medicines only as told by your doctor. ??? Contact a doctor if your belly pain changes or gets worse. ??? Get help right away if you have very bad pain, cramping, or bloating in your belly. This information is not intended to replace advice given to you by your health care provider. Make sure you discuss any questions you have with your health care provider. Document Revised: 01/01/2020 Document Reviewed: 01/01/2020 [employer] Patient Education ?? 2022 [employer]. Follow Up Care 09/28/2023 12:30:48 With:Your GI Doctor of primary care doctor when you go home Address:Unknown When:1 to 2 weeks Comments:Return to ED if symptoms worsen Physician Emergency department Note * Alexander Bo MD: PERFORM, SIGN, VERIFY, MODIFY Event Display: ED Physician Notes Authored Date: [id number] Patient: ROZINA NAVARRO () Age: 53 years Sex: F : 1970 Associated Diagnoses: None Author: Alexander Bo MD Basic Information Time seen: Provider Initial Contact Time 09/28/2023 13:10. History source: Patient. Arrival mode: Private vehicle, walking. History limitation: None. Additional information: Chief Complaint (ST) Chief Complaint ED: LUQ pain x 2 weeks nfrom home 09/28/23 12:51, Subjective Nursing Assessment: pt stated that she was seen at [facility] last week and dx with constipation. but pain continued, hence decided to come to ED. 09/28/23 12:51 . History of Present Illness The patient presents with abdominal pain. Been having abdominal discomfort for almost 2 weeks now. About 1 week ago she was seen at a freestanding emergency department and had an x-ray done, diagnosed with UTI and constipation told to take laxatives and Bactrim. She notes it really did not make anydifference. She never had any dysuria. The pain is left upper quadrant pain, nonradiating to the back or shoulder. There is no pain with inspiration. No cough. She has had a history of diverticulitisbut she notes it does not feel like this, that pain was previously lower and this is upper pain. Does not stretch to the right side. Is not related to eating or position. There is no blood in the urine or blood in the stool. No flank pain, no rash. Surgical history only of . No other intra-abdominal history. Review of Systems Constitutional symptoms: No fever, no chills. Skin symptoms: No rash, Respiratory symptoms: No shortness of breath, no cough, no hemoptysis. Cardiovascular symptoms: No chest pain, Gastrointestinal symptoms: Abdominal pain, nausea, no vomiting, no diarrhea, no constipation. Genitourinary symptoms: No dysuria, no hematuria. Musculoskeletal symptoms: No back pain, Neurologic symptoms: No headache, no dizziness. Health Status Allergies: Allergic Reactions (Selected) Moderate Paxil- Rash.. Medications: Include Documented Meds (Selected) Documented Medications Documented Effexor: PO, 0 Refill(s) traZODone: PO, 0 Refill(s). Past Medical/ Family/ Social History Medical history: All Problems Anxiety / [id number] / Confirmed Constipation / [id number] / Confirmed Diverticulitis / [id number] / Confirmed. Surgical history: section ().. Social history: Social & Psychosocial Habits Alcohol 09/28/2023 Use: Denies Home/Environment 09/28/2023 Pentecostal restrictions/concerns: None Substance Abuse 09/28/2023 Use: Denies Tobacco 09/28/2023 Tobacco Use: Never (less than 100 in l . Physical Examination Vital Signs Vital-Signs 09/28/2023 12:51 MST SPO2 98 % Normal Heart Rate 93 bpm Normal NIBP Systolic 136 mm Hg Normal NIBP Diastolic 88 mm Hg Normal Resp Rate (Monitor) 20 Breaths/Min Normal Temperature PO 36.8 deg C Normal Pain Intensity 6 Pain Scale Used Numeric Rating Scale . Measurements 09/28/2023 12:51 MST BSA-pt care 1.9 [place] Body Weight 52.4 kg Weight Method Stated Drug Calc Weight (kg) 81.633 kg BMI 31.88 kg/m2 Height 160.02 cm Height In 63 Inch Weight lb 180 lbs . SPO2 09/28/2023 12:51 MST SPO2 98 % Normal . Normal O2 sats. General: Alert, no acute distress. Skin: Warm, dry, intact, no pallor, no rash, Not cyanotic, Cardiovascular: Regular rate and rhythm, No murmur, Normal peripheral perfusion, No edema, Arterialpulses: Bilateral, radial, femoral, normal, 2+. Respiratory: Lungs are clear to auscultation, respirations are non-labored, breath sounds are equal, Symmetrical chest wall expansion. Gastrointestinal: Soft, Non distended, Normal bowel sounds, Tenderness: Mild, right upper quadrant,left upper quadrant, right lower quadrant, right flank negative, left flank negative, left lower quadrant negative, Guarding: Negative, Rebound: Negative, Mass: Negative, not pulsatile, Signs: McBurney's negative, Miller's negative. Back: Nontender, Normal range of motion, No costovertebral angle tenderness, Musculoskeletal: Normal ROM, no tenderness. Neurological: Alert and oriented to person, place, time, and situation, No focal neurological deficit observed, CN II-XII intact, normal sensory observed, normal motor observed, normal speech observed. Lymphatics: No lymphadenopathy. Psychiatric: Cooperative, appropriate mood & affect. Medical Decision Making Differential Diagnosis: Abdominal pain, renal stone, biliary colic, cholecystitis, hepatitis, pancreatitis, pyelonephritis, peptic ulcer disease, gastritis, abdominal aortic aneurysm, ischemic bowel,diverticulitis, constipation not Appendicitis, not bowel obstruction, not bowel perforation, not gastroenteritis. Documents reviewed: Emergency department records. Orders Launch Order Profile (Selected) Inpatient Orders Ordered NPO: Completed CBC w/Diff* (man diff if indicated): CMP (BMP + ALB, Tot Prot, Bili, CA, Alk Phos, ALT, AST): CT Abdomen+Pelvis w IV Con: ED Initial Screening: IV Saline Lock: Isovue-370: 100 mL, IV Push, x1 Lactic Acid w/Reflex: Lipase Level: Sodium Chloride 0.9% (Bolus): 1,000 mL, 923.08 mL/hr, IV, x1 US Abdomen Limited: Urinalysis UA Rflx Microscop Cult if Ind: Zofran INJ: 4 mg, IV Push, x1 ketorolac: 10 mg, IV Push, x1 zUrinalysis Microscopic: . Results review: Lab results : Laboratory 09/28/2023 13:13 MST WBC 7.9 thousand/uL Normal RBC 4.71 million/uL Normal Hgb 14.7 gm/dL Normal Hct 43.4 % Normal MCV 92.3 fL Normal MCH 31.2 pg Normal MCHC 33.8 gm/dL Normal RDW 13.5 % Normal Plt 334 thousand/uL Normal MPV 8.4 fL Normal Neuts 49.2 % Normal Lymphs 36.0 % Normal Monos. 9.1 % Normal Eos. 4.4 % Normal Baso. 1.3 % Normal ABS Neut 3.9 thousand/uL Normal ABS Lymph 2.8 thousand/uL Normal ABS [place] 0.7 thousand/uL Normal ABS Eos 0.3 thousand/uL Normal ABS Baso 0.1 thousand/uL Normal CBC Scan Auto Diff nRBC Auto 0 NA Sodium 139 mmol/L Normal Potassium 4.4 mmol/L Normal Chloride 104 mmol/L Normal CO2 23 mmol/L Normal Anion Gap 12 mmol/L Normal Glucose Level 91 mg/dL Normal BUN 13 mg/dL Normal Creatinine 1.13 mg/dL Normal BUN/Scrap Worker Ratio 11.5 Normal eGFRcr 57 mL/min/1.73m2 L Calcium 9.5 mg/dL Normal Protein, Total 7.8 gm/dL Normal Albumin 4.4 gm/dL Normal Globulin 3 gm/dL NA A/G Ratio 1 NA Bili Total 0.4 mg/dL Normal ALT 27 Units/L Normal AST 22 Units/L Normal Alkphos 74 Units/L Normal Lipase 26.0 Units/L Normal Lactic Acid 0.7 mmol/L Normal Color Yellow Appearance Clear Specific [place] <=1.005 UpH 6.0 UGlucose Negative UBilirubin Negative UKetones Negative UBlood 1+ UProtein Negative UA Urobilinogen 0.2 E.U./dL UNitrite Negative ULeukocyte Esterase Negative Urine Culture if Indicated Not Indicated UA Squam Epithelial None Urine WBCs 0-4 URBC 0-4 UBacteria None . Radiology results: Radiologist's interpretation Name: ROZINA NAVARRO Account: [id number] : 1970 Result Date: 09/28/23 15:32 Verified By: Johnnie Ya MD at 09/28/23 15:51 Report : US Abdomen Limited IMPRESSION: Fatty infiltration of the liver with focal fatty sparing in the left lobe. 09/28/23 15:10 +++++++++++++++++++++++++++++++++++++++++++++++++++++++ Result Date: 09/28/23 14:51 Verified By: Barby Hines DO at 09/28/23 15:04 Report : CT Abdomen+Pelvis w IV Con IMPRESSION: 1. Moderate diffuse colonic diverticulosis without evidence of acute diverticulitis. 2.Hepatic steatosis. 09/28/23 14:41 +++++++++++++++++++++++++++++++++++++++++++++++++++++++ . Reexamination/ Reevaluation Time: 09/28/2023 18:16:00 . Course: Other than fatty liver no significant findings to explain the patient's left-sided abdominal pain. Primarily left upper quadrant. Patient notes that she was diagnosed with constipation and UTI. There is no convincing evidence of constipation or UTI. Certainly appropriate for outpatient management there is nothing appears to be surgical nothing appears to be infectious. I discussed the plan of proton pump inhibitors plus antispasmodics and GI follow-up for colonoscopy. The patient is traveling out of state and will not be able to follow-up locally so I suggest making an appoint with a GI doctor when she travels back home. We talked about ER return for worsening. Ultimately while I did not find in the room with the patient I reassured her that I don't think there is anything life threatening going on with her.. Impression and Plan Left upper quadrant abdominal pain ([id number] R10.12, Discharge, Medical) Plan Condition: Unchanged. Disposition: Discharged: Time 09/28/2023 18:18:00, to home. Prescriptions: [facility]: dicyclomine 10 mg oral capsule (Prescribe): 1 Cap, PO, QID, for 7 Day, PRN: abdominal pain/spasm, 30 Cap, 0 Refill(s) omeprazole 40 mg oral enteric coated capsule (Prescribe): 1 Cap, PO, Daily, for 30 Day, 30 Cap, 0 Refill(s). Patient was given the following educational materials: Abdominal Pain, Adult, [id number]. Follow up with: Your GI Doctor of primary care doctor when you go home Within 1 to 2 weeks Return to ED if symptoms worsen. Counseled: Patient, Regarding diagnosis, Regarding diagnostic results, Regarding treatment plan, Regarding prescription, Patient indicated understanding of instructions. Electronically Signed By: Alexander Bo MD On 09/28/23 18:19 Co Signature By: Modify Signature By: Alexander Bo MD On 09/28/23 18:19 Patient Care team information Care Team Related Persons Name: DIANE CARMEN [address]: [address] [place], [place] [id number]
--- OUTSIDE RECORDS SUMMARY | 2024-02-18 08:32 | XMS_ITS | Continuity of Care Document ---
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) - Left upper quadrant abdominal pain(Discharge Diagnosis) - 09/28/23 Urinary tract infection, site not specified(Final) - Fatty (change of) liver, not elsewhere classified(Final) - Constipation, unspecified(Final) - Allergy status to other drugs, medicaments and biological substances(Final) - Discharge Disposition: Home or Self Care Attending Physician: Alexander Bo MD Allergies, Adverse Reactions, Alerts Substance Reaction Severity Status Paxil Rash Moderate Active Medications dicyclomine 10 mg oral capsule 1 Cap Cap, PO, QID, PRN, abdominal pain/spasm, Qty: 30 Cap, Refills: 0, Maintenance, Route to Pharmacy Electronically, [facility] #[id number] Start Date: 09/28/23 Stop Date: 10/05/23 Status: [...] Refills: 0, Maintenance, Route to Pharmacy Electronically, [facility] #[id number] Start Date: 09/28/23 Stop Date: 10/28/23 Status: [...] 2.8 thou sand/uL (09/28/23 1:13 PM) ABS Camp [0.0-1.6 thousand/uL] 0.7 thous and/uL (09/28/23 1:13 PM) Albumin [3.5-5.0 gm/dL] 4.4 gm/dL (09/28/23 1:13 PM) Alkphos [40-150 Units/L] 74 Units/L (09/28/23 1:13 PM) ALT [6-55 Units/L] 27 Units/L (09/28/23 1:13 PM) Anion Gap [7-15 mmol/L] 12 mmol/L (09/28/23 1:13 PM) Appearance Clear (09/28/23 1:13 PM) Bili Total [0.2-1.2 mg/dL] 0.4 mg/dL (09/28/23 1:13 PM) BUN [8-25 mg/dL] 13 mg/dL (09/28/23 1:13 PM) BUN/Ordnance Technician Ratio [8.0-24.0] 11.5 (09/28/23 1:13 PM) Chloride [...] 1:13 PM) Lipase [8.0-78.0 Units/L] 26.0 Units/L (09/28/23:13 PM) MCH [27.0-34.0 pg] 31.2 pg (09/28/23 1:13 PM) MCHC [32.0-37.0 gm/dL] 33.8 gm/dL (09/28/23 1:13 PM) MCV [80.0-100.0 fL] 92.3 fL (09/28/23 1:13 PM) MPV [7.5-11.5 fL] 8.4 fL (09/28/23 1:13 PM) Plt [130-400 thousand/uL] 334 thousand/u L (09/28/23:13 PM) Protein, Total [6.0-8.3 gm/dL] 7.8 gm/dL (09/28/23 1:13 PM) RBC [4.00-5.40 million/uL] 4.71 million/ uL (09/28/23 1:13 PM) RDW [11.5-16.0 %] 13.5 % (09/28/23 1:13 PM) Sodium [136-145 mmol/L] 139 mmol/L (09/28/23 1:13 PM) Specific [place] [1.003-1.035] <=1.005 *ABN* (09/28/23 1:13 PM) UBacteria None (09/28/23 1:13 PM) UBilirubin Negative (09/28/23 1:13 PM) UBlood 1+ *ABN* (09/28/23 1:13 [...] Electronically signed by: Barby Hines DO Transcribed by:AV , , , S: 09/28/2023 15:04 * [...] Patient Education 09/28/2023 17:18:59 Abdominal Pain, Adult, [id number] Abdominal Pain, Adult Many things can cause belly (abdominal) pain. Most times, belly pain is not dangerous. Many cases of belly pain can be watched and treated at home. Sometimes, though, belly pain is serious. Your doctor will try to find the cause of your belly pain. Follow these instructions at home: Medicines ??? Take [id number]-oliyhtx and prescription medicines only as told by [...] belly pain for any changes. ??? Take kyxq-dyb-coesasx and prescription medicines only as told by [...] provider. Document Revised: 01/01/2020 Document Reviewed: 01/01/2020 [employer] Patient Education ?? 2022 [place]. Follow Up Care 09/28/2023 12:30:48 With:Your GI Doctor of primary care doctor when you go home Address:Unknown When:1 to 2 weeks Comments:Return to ED if symptoms worsen Physician Emergency department Note * Alexander Bo MD: PERFORM, SIGN, VERIFY, MODIFY Event Display: ED Physician Notes Authored Date: [id number] Patient: ROZINA NAVARRO (AG) Age: 53 years Sex: F : 1970 Associated Diagnoses: None Author: Alexander Bo MD Basic Information Time seen: Provider Initial Contact Time 09/28/2023 13:10. History source: Patient. Arrival mode: Private vehicle, walking. History limitation: None. Additional information: Chief Complaint (ST) Chief Complaint ED: LUQ pain x 2 weeks nfrom home 09/28/23 12:51, Subjective Nursing Assessment: pt stated that she was seen at [facility] last week and dx with constipation. but [...] History Medical history: All Problems Anxiety / [id number] / Confirmed Constipation / 51779999 / Confirmed Diverticulitis / [id number] / Confirmed. Surgical history: section ([id number]).. Social history: Social & Psychosocial Habits Alcohol 09/28/2023 Use: Denies Home/Environment 09/28/2023 Protestant restrictions/concerns: None Substance Abuse 09/28/2023 Use: Denies [...] Measurements 09/28/2023 12:51 MST BSA-pt care 1.9 [place] Body Weight 52.4 kg Weight Method Stated [...] Normal ABS Lymph 2.8 thousand/uL Normal ABS Camp 0.7 thousand/uL Normal ABS Eos 0.3 thousand/uL Normal ABS Baso 0.1 thousand/uL Normal CBC Scan Auto Diff nRBC Auto 0 NA Sodium 139 mmol/L Normal Potassium 4.4 mmol/L Normal Chloride 104 mmol/L Normal CO2 23 mmol/L Normal Anion Gap 12 mmol/L Normal Glucose Level 91 mg/dL Normal BUN 13 mg/dL Normal Creatinine 1.13 mg/dL Normal BUN/Ordnance Technician Ratio 11.5 Normal eGFRcr 57 mL/min/1.73m2 L Calcium 9.5 mg/dL Normal Protein, Total 7.8 gm/dL Normal Albumin 4.4 gm/dL Normal Globulin 3 gm/dL NA A/G Ratio 1 NA Bili Total 0.4 mg/dL Normal ALT 27 Units/L Normal AST 22 Units/L Normal Alkphos 74 Units/L Normal Lipase 26.0 Units/L Normal Lactic Acid 0.7 mmol/L Normal Color Yellow Appearance Clear Specific [place] <=1.005 UpH 6.0 UGlucose Negative UBilirubin Negative UKetones Negative UBlood 1+ UProtein Negative UA Urobilinogen 0.2 E.U./dL UNitrite Negative ULeukocyte Esterase Negative Urine Culture if Indicated Not Indicated UA Squam Epithelial None Urine WBCs 0-4 URBC 0-4 UBacteria None . Radiology results: Radiologist's interpretation Name: ROZINA NAVARRO Account: [id number] : 1970 Result Date: 09/28/23 15:32 Verified [...] and Plan Left upper quadrant abdominal pain ([id number] R10.12, Discharge, Medical) Plan Condition: Unchanged. Disposition: Discharged: Time 09/28/2023 18:18:00, to home. Prescriptions: [facility]: dicyclomine 10 mg oral capsule (Prescribe): 1 Cap, PO, QID, for 7 Day, PRN: abdominal pain/spasm, 30 Cap, 0 Refill(s) omeprazole 40 mg oral enteric coated capsule (Prescribe): 1 Cap, PO, Daily, for 30 Day, 30 Cap, 0 Refill(s). Patient was given the following educational materials: Abdominal Pain, Adult, [id number]-[id number]. Follow up with: Your GI Doctor of [...] Team Related Persons Name: DIANE CARMEN Address: [address] [place], [place] [id number]
--- OUTSIDE RECORDS SUMMARY | 2024-02-18 08:32 | XMS_ITS | Continuity of Care Document ---
Author Organization [facility] Address [address] [place] [address]- Encounter AZGM_FIN [id number] Date(s): 09/22/23 - 09/22/23 [facility] [address] [place] [address]- Encounter Diagnosis Constipation(Discharge Diagnosis) - 09/22/23 Urinary tract infection(Discharge Diagnosis) - 09/22/23 Urinary tract infection, site not specified(Final) - Constipation, unspecified(Final) - Allergy status to other drugs, medicaments and biological substances(Final) - Discharge Disposition: Home or Self Care Attending Physician: Khai Awad DO Allergies, Adverse Reactions, Alerts Substance Reaction Severity Status Paxil Rash Moderate Active Medications Bactrim DS 800 mg-160 mg oral tablet 1 Tab Tab, PO, BID, 10 Day, 20 Tab, Refills: 0, 10/02/23 12:02:00 PM PST, Acute, Route to Pharmacy Electronically, [facility] #[id number] Start Date: 09/22/23 Stop Date: 10/02/23 Status: Ordered dicyclomine 10 mg oral capsule 1 Cap Cap, PO, QID, PRN, abdominal pain/spasm, Qty: 30 Cap, Refills: 0, Maintenance, Route to Pharmacy Electronically, [facility] #[id number] Start Date: 09/28/23 Stop Date: 10/05/23 Status: Ordered Effexor PO, Refills: 0, Maintenance Start Date: 09/28/23 Status: Ordered omeprazole 40 mg oral enteric coated capsule 1 Cap Cap, ER, PO, Daily, Qty: 30 Cap, Refills: 0, Maintenance, Route to Pharmacy Electronically, [facility] #[id number] Start Date: 09/28/23 Stop Date: 10/28/23 Status: Ordered traZODone PO, Refills: 0, Maintenance Start Date: 09/28/23 Status: Ordered Problem List Condition Confirmation Course Effective Dates Status Health [facility] Informant Anxiety Confirmed Active Constipation Confirmed Active Diverticulitis Confirmed Active Procedures Procedure Date Related Diagnosis Body Site Status section Complete d Results Laboratory List Name Date Urinalysis (POCT) 09/22/23 Most recent to oldest [Reference Range]: 1 UA Urobilinogen 0.2 (09/22/23 12:04 PM) Appearance Clear *NA* (09/22/23 12:04 PM) Color Yellow (09/22/23 12:04 PM) Specific [place] [1.003-1.035] <=1.005 *NA* (09/22/23 12:04 PM) UBilirubin Negative (09/22/23 12:04 PM) UBlood Trace-lysed *NA* (09/22/23 12:04 PM) UGlucose Negative (09/22/23 12:04 PM) UKetones Negative (09/22/23 12:04 PM) ULeukocyte Esterase Large *ABN* (09/22/23 12:04 PM) UNitrite Negative (09/22/23 12:04 PM) UpH [5.0-7.0] 6.0 (09/22/23 12:04 PM) UProtein Negative (09/22/23 12:04 PM) Radiology Reports * Exam Date Time Procedure Performing Provider Status 09/22/23 12:33 PM XR Abdomen AP Contributor_system, [facility] RAD; Auth (Verified) Notes: (XR Abdomen AP) Reason For Exam: Abdomen Pain LUQ RADRPT PROCEDURE INFORMATION: Exam: XR Abdomen Exam date and time: 09/22/2023 11:57 AM Age: 53 years old Clinical indication: Abdomen pain luq TECHNIQUE: Imaging protocol: Radiologic exam of the abdomen. Views: Frontal supine view of the abdomen. 1 View. COMPARISON: No relevant prior studies available. FINDINGS: Gastrointestinal tract: Nonspecific bowel gas pattern is present. No definite gross free air detected. Abundance of stool within the colon and rectum. Small coarse calcification within the left pelvis may represent degenerating fibroid. Bones/joints: Unremarkable. Soft tissues: No abnormal radiopaque densities. IMPRESSION: Nonspecific bowel gas pattern. * * * F I N A L * * * Dictated by: Kodi Mayer MD Electronically signed by: Kodi Mayer MD Transcribed by:AV , , , S: 09/22/2023 12:40 * * * F I N A L * * * Vital Signs Most recent to oldest [Reference Range]: 1 2 Temperature Temporal Artery [36.4-37.5 deg C] 36.5 deg C (09/22/23 11:46 AM) Heart Rate [51-119 bpm] 78 bpm (09/22/23 1:10 PM) 87 bpm (09/22/23 11:46 AM) Blood Pressure [91-139/51-89 mm Hg] 128/ 84mm Hg (09/22/23 1:10 PM) 138/85mm Hg (09/22/23 11:46 AM) Resp Rate (Monitor) [13-20 Breaths/Min] 16 Breaths/Min (09/22/23 1:10 PM) 16 Breaths/Min (09/22/23 11:46 AM) SPO2 [92 %] 97 % (09/22/23 1:10 PM) 96 % (09/22/23 11:46 AM) Oxygen Method Room air (09/22/23 11:46 AM) Height 162 cm (09/22/23 11:46 AM) Drug Calc Weight (kg) 81.633 kg (09/22/23 11:46 AM) Weight Method Stated (09/22/23 11:46 AM) BMI 31.105 kg/m2 (09/22/23 11:46 AM) Living Situation Lives with family (09/22/23 11:46 AM) Sensory Deficits None (09/22/23 11:46 AM) Social History Social History Type Response Smoking Status Never (less than 100 in lifetime) entered on: 09/28/23 Sex Female Hospital Discharge Instructions Patient Education 09/22/2023 12:03:37 Constipation, Adult Constipation, Adult Constipation is when a person has fewer than three bowel movements in a week, has difficulty havinga bowel movement, or has stools (feces) that are dry, hard, or larger than normal. Constipation maybe caused by an underlying condition. It may become worse with age if a person takes certain medicines and does not take in enough fluids. Follow these instructions at home: Eating and drinking ??? Eat foods that have a lot of fiber, such as beans, whole grains, and fresh fruits and vegetables. ??? Limit foods that are low in fiber and high in fat and processed sugars, such as fried or sweet foods. These include german fries, hamburgers, cookies, candies, and soda. ??? Drink enough fluid to keep your urine pale yellow. General instructions ??? Exercise regularly or as told by your health care provider. Try to do 150 minutes of moderate exercise each week. ??? Use the bathroom when you have the urge to go. Do not hold it in. ??? Take ddbd-ggd-vefnrxb and prescription medicines only as told by your health care provider. This includes any fiber supplements. ??? During bowel movements: ??? Practice deep breathing while relaxing the lower abdomen. ??? Practice pelvic floor relaxation. ??? Watch your condition for any changes. Let your health care provider know about them. ??? Keep all follow-up visits as told by your health care provider. This is important. Contact a health care provider if: ??? You have pain that gets worse. ??? You have a fever. ??? You do not have a bowel movement after 4 days. ??? You vomit. ??? You are not hungry or you lose weight. ??? You are bleeding from the opening between the buttocks (anus). ??? You have thin, pencil-like stools. Get help right away if: ??? You have a fever and your symptoms suddenly get worse. ??? You leak stool or have blood in your stool. ??? Your abdomen is bloated. ??? You have severe pain in your abdomen. ??? You feel dizzy or you faint. Summary ??? Constipation is when a person has fewer than three bowel movements in a week, has difficulty having a bowel movement, or has stools (feces) that are dry, hard, or larger than normal. ??? Eat foods that have a lot of fiber, such as beans, whole grains, and fresh fruits and vegetables. ??? Drink enough fluid to keep your urine pale yellow. ??? Take mldp-ywr-fuwwdbv and prescription medicines only as told by your health care provider. This includes any fiber supplements. This information is not intended to replace advice given to you by your health care provider. Make sure you discuss any questions you have with your health care provider. Document Revised: 07/10/2020 Document Reviewed: 07/10/2020 [employer] Patient Education ?? 2022 [employer]. 09/22/2023 12:03:28 Urinary Tract Infection, Adult, Agwa-zv-Fqrs Urinary Tract Infection, Adult A urinary tract infection (UTI) is an infection of any part of the urinary tract. The urinary tractincludes: ??? The kidneys. ??? The ureters. ??? The bladder. ??? The urethra. These organs make, store, and get rid of pee (urine) in the body. What are the causes? This infection is caused by germs (bacteria) in your genital area. These germs grow and cause swelling (inflammation) of your urinary tract. What increases the risk? The following factors may make you more likely to develop this condition: ??? Using a small, thin tube (catheter) to drain pee. ??? Not being able to control when you pee or poop (incontinence). ??? Being female. If you are female, these things can increase the risk: ??? Using these methods to prevent : ??? A medicine that kills sperm (spermicide). ??? A device that blocks sperm (diaphragm). ??? Having low levels of a female hormone (estrogen). ??? Being . You are more likely to develop this condition if: ??? You have genes that add to your risk. ??? You are sexually active. ??? You take antibiotic medicines. ??? You have trouble peeing because of: ??? A prostate that is bigger than normal, if you are male. ??? A blockage in the part of your body that drains pee from the bladder. ??? A kidney stone. ??? A nerve condition that affects your bladder. ??? Not getting enough to drink. ??? Not peeing often enough. ??? You have other conditions, such as: ??? Diabetes. ??? A weak disease-fighting system (immune system). ??? Sickle cell disease. ??? Gout. ??? Injury of the spine. What are the signs or symptoms? Symptoms of this condition include: ??? Needing to pee right away. ??? Peeing small amounts often. ??? Pain or burning when peeing. ??? Blood in the pee. ??? Pee that smells bad or not like normal. ??? Trouble peeing. ??? Pee that is cloudy. ??? Fluid coming from the vagina, if you are female. ??? Pain in the belly or lower back. Other symptoms include: ??? Vomiting. ??? Not feeling hungry. ??? Feeling mixed up (confused). This may be the first symptom in older adults. ??? Being tired and grouchy (irritable). ??? A fever. ??? Watery poop (diarrhea). How is this treated? Taking antibiotic medicine. ??? Taking other medicines. ??? Drinking enough water. In some cases, you may need to see a specialist. Follow these instructions at home: Medicines ??? Take lvui-mzr-hexnlzy and prescription medicines only as told by your doctor. ??? If you were prescribed an antibiotic medicine, take it as told by your doctor. Do not stop taking it even if you start to feel better. General instructions ??? Make sure you: ??? Pee until your bladder is empty. ??? Do not hold pee for a long time. ??? Empty your bladder after sex. ??? Wipe from front to back after peeing or pooping if you are a female. Use each tissue one time when you wipe. ??? Drink enough fluid to keep your pee pale yellow. ??? Keep all follow-up visits. Contact a doctor if: ??? You do not get better after 1???2 days. ??? Your symptoms go away and then come back. Get help right away if: ??? You have very bad back pain. ??? You have very bad pain in your lower belly. ??? You have a fever. ??? You have chills. ??? You feeling like you will vomit or you vomit. Summary ??? A urinary tract infection (UTI) is an infection of any part of the urinary tract. ??? This condition is caused by germs in your genital area. ??? There are many risk factors for a UTI. ??? Treatment includes antibiotic medicines. ??? Drink enough fluid to keep your pee pale yellow. This information is not intended to replace advice given to you by your health care provider. Make sure you discuss any questions you have with your health care provider. Document Revised: 04/04/2021 Document Reviewed: 04/04/2021 [employer] Patient Education ?? 2022 [employer]. Follow Up Care 09/22/2023 11:37:00 With:Follow up with primary care provider Address:Unknown When:1 to 3 days Physician Emergency department Note * Khai Awad DO: PERFORM Event Display: ED Physician Notes Authored Date: [id number] Patient: ??ROZINA NAVAROR ? Age: ??53 years ?Sex: ??F ?: ??1970 ?Active Insurance: ??[employer]BS OF [place] Admitting MD: ?Location: ??[facility] ED: ED06: 01 ?PCP: ?? Author: ??Khai Awad DO Date/Time ??Admit Date: ?? 09/22/23 11:36 Provider Contact Time: 09/22/2023 11:51 Mode of Arrival Mode of Arrival: ??Ambulatory ?? Chief Complaint Chief Complaint ED:??Abdominal/flank pain ? 09/22/23 11:46 Subjective Nursing Assessment:??pt started ti develop L abdo/flank pain x1 week. states she feels bloated and get full faster. some nausea nov/d. increased veggie intake. no c/o. pain worse when laying flat ? (09/22/23 11:46) History of Present Illness This is a 53-year-old female who presents to the emergency department today stating that she has been having??left upper abdominal pain on and off for 1 week. ??She denies any nausea vomiting or diarrhea. ??She denies constipation.?? She denies fever or chills. ??She denies dysuria, hematuria,??urgency, or frequency.?? She has no history of kidney stones. Health Status ?? Status ??Patient denies ?? Review of Systems A 10 component review of systems was obtained and is negative except for what was mentioned in the history of present illness. Physical Exam First Vitals Signs ?? Blood Pressure: ??138 / 85??(09/22/23 11:46) ?? Heart Rate: ??87??(09/22/23 11:46) ?? Respiratory Rate: ??16??(09/22/23 11:46) ?? SPO2: ??96%??(09/22/23 11:46) ?? Oxygen Method: ??Room air??(09/22/23 11:46) ?? Temperature Temporal Artery ??36.5??(09/22/23 11:46) ?? General Impression: ??Well appearing, non-toxic appearing, resting comfortably in bed HEENT: ??Normocephalic, atraumatic, Eyes: extraocular movements are intact, pupils are round and equal and reactive to light bilaterally, Throat: clear without erythema or exudate, mucous membranes are moist. Cardiovascular: ??Heart regular rate and rhythm. ??No appreciable jugular venous distention. Respiratory: ??Breathing is unlabored, lungs clear are to auscultation bilaterally. ??No rhonchi, no wheeze or no rales appreciated. Abdomen: ??Abdomen is soft, left upper quadrant tenderness, non-distended, no organomegaly, no guarding, no rebound. Bowel sounds are normal. Musculoskeletal: ??Extremities are symmetric and reveal equal pulses. ??No peripheral edema. ??No cyanosis. Back: ??No spinal tenderness. Neurological: ??Alert and oriented, no slurred speech, moving extremities symmetrically without difficulty. Skin: ??Warm, dry, with normal turgor. ??Intact with no visualized rashes. Genitourinary: ??Deferred. Rectal: ??Deferred. Most Recent Vitals T:??36.5?C ??(Temporal Artery)?? HR:??87?? RR:??16?? BP:??138/85?? SpO2:??96%?? Oxygen Method:??Room air?? WT:??180??lbs?? WT:??81.633??kg?? Emergency Department Orders ?Laboratory & Blood:?NOTIFY CLINITEK STATUS (NOTIFY CLINITEK STATUS)?Urinalysis (POCT)?Radiology:?XR Abdomen AP (KUB XR Abd 1 view)?? Laboratory Results No qualifying data available ? Urinalysis?? Urine Color: ?Yellow Urine Specific Hayden: ?<=1.005 Urine UA PH: ?6.0 Urine UA Glucose: ?Negative Urine UA Bilirubin: ?Negative Urine UA Ketones: ?Negative Urine UA Blood: ?Trace-lysed Urine UA Protein: ?Negative Urine UA Urobilinogen: ?0.2 Urine UA Nitrite: ?Negative UA Leukocyte Esterase: ??Large (A) Diagnostic Results/Interpretation Radiology Result Date: ??09/22/23 12:33 ?? Verified By: ??Kodi Mayer MD at 09/22/23 12:40 ? Report : ??XR Abdomen AP?? IMPRESSION: Nonspecific bowel gas pattern. 09/22/23 11:57 ?? +++++++++++++++++++++++++++++++++++++++++++++++++++++++? I reviewed the??x-ray images??independent of the radiologist and??my interpretation??is??consistentwith??a nonspecific bowel gas pattern however there is a large amount of stool throughout the colon??consistent with constipation. Medical Decision Making Differential Diagnoses (considered and possible or likely):??Constipation, diverticulitis ?? Differential Diagnoses (considered and unlikely, not requiring evaluation currently):??Bowel obstruction unlikely, intussusception unlikely ?? Chronic Conditions (stable and unstable):??N/A Comorbid Condition Impacting Present Evaluation/Treatment:??N/A ?? ECG/Rhythm Strip/Head Sawyer Automatic Rhythm Interpretation (rhythm, rate, axis, QRS/T waves, acute/chronic changes, comparisons, clinical findings/diagnosis): ?? Imaging Studies: KUB ?? Tests Ordered and Tests Considered: UA ?? Server Security Administrator Discussion(s):??N/A ?? Independent Historian:??None ?? Social Determinants of Health: There are no social determinants of health that would prohibit the patient from obtaining medical care.? External Records Review:??N/A ?? Consideration for Hospitalization:??N/A ?? Need to Initiate or Forego Further Testing:??N/A ?? Need to Monitor for Drug Toxicities:??N/A ?? Illness with High Risk of Morbidity without Treatment:??N/A ?? Out-Patient Prescriptions Affecting Other Chronic Conditions: N/A ?? I reviewed the urinalysis results and x-ray results with the patient.?? Informed her that she has aurinary tract infection and??on her x-ray did show a large amount of stool throughout her colon consistent with constipation.?? I have prescribed Bactrim double strength??and advised her to take the antibiotics until finished.?? I advised her to drink much more water. ??I also advised her on constipation.?? Advised her to follow-up with her doctor in 3 to 4 days for reevaluation or return to the emergency department should she get worse.?? Patient understood and agreed to do so. ?? The patient has remained hemodynamically stable in the emergency department and is safe for discharge home. ??Patient was advised of findings including incidental findings and treatment plan, as well as the provisional nature of the diagnosis. ??Patient was given verbal discharge instructions aswell as strict return precautions in my usual and customary fashion. ??Patient voiced understandingand agreement with discharge plan. Final Diagnosis Diagnosis this visit:?? Urinary tract infection (N39.0) 09/22/2023 13:03 ?Discharge ? Constipation (K59.00) 09/22/2023 13:03 ?Discharge ? Disposition Discharge ? Order Details: ?09/22/23 13:02:00 MST, Now, Home or self care?? Discharge Medications New Prescriptions 1. sulfamethoxazole-trimethoprim(Bactrim DS 800 mg-160 mg oral tablet) 1 Tab By mouth Tab twice daily 10 Day?? Follow-up Follow-Up Details: ?? Provider/Org Name: ??Follow up with primary care provider ?? Within: ??1 to 3 days? Comments Drink plenty of water, at least 64 ounces per day.?? Take antibiotics as directed until finished.??Eat more fiber in your diet such as fresh fruits and vegetables and whole grain breads and cereals. ??Drink one bottle of magnesium citrate and take 2 Dulcolax pills today. ??Start using MiraLAX tomorrow every day for 1 week and then as needed thereafter. ??Follow-up with your doctor if not better in 3 to 4 days and return to the emergency department if you get worse. Problem List/Past Medical History Ongoing Constipation Historical No qualifying data Allergies Paxil??(Rash) Social History Alcohol Denies, 09/22/2023 Home/Environment Shinto restrictions/concerns: None., 09/22/2023 Substance Abuse Denies, 09/22/2023 Tobacco Never (less than 100 in lifetime), 09/22/2023 Home Medications Bactrim DS 800 mg-160 mg oral tablet, 1 Tab, PO, BID Electronically Signed By: Khai Awad DO On 09/22/23 13:05 Co Signature By: Modify Signature By: Patient Care team information Care Team Related Persons Name: DIANE CARMEN Address: home [address] [place], [place] [id number]
--- NOTE | 2024-02-18 08:33 | MHC.OFFWIV ---
Intake Vital Signs 02/18/24 08:34 Height 5 ft 3 in Weight 183 lb BMI 32.4 BP 122/80 Blood Pressure Location Rt brachial Position Sitting Pulse 92 Pulse Source Auscultation Temp 98.5 F Temp Source Oral Intake Visit Reasons: EP Headaches/Fatigue Intake Note: pt here c/o headache and fatigue. Started Tuesday 02/13 Patient Tobacco Use Status: Never used Tobacco Allergies paroxetine [From PAXIL] Allergy (Intermediate, Verified 02/18/24 08:33) RASH FACE/NECK adhesive [ADHESIVE] Allergy (Mild, Verified 02/18/24 08:33) BLISTERS adhesives, tape Allergy (Unknown, Uncoded 02/18/24 08:33) blisters Do you need a note to return to daycare/school/sports/work: No HPI HPI Comments History of Present Illness Details Patient is a 53-year-old female complaining of 5 days of headache and fatigue and fevers. She states her fever had gotten up to 102 degrees each night but she takes Tylenol and it usually comes down, she also has associated sinus pain, what she describes as ?lung burning?, a little bit of a sore throat, a little cough when her throat gets dry and today she is experiencing some nausea. She denies any photophobia, phonophobia or shortness of breath or trouble breathing. She denies any ear pain as well. [facility] Medical History Mammogram normal Normal Pap smear Annual physical exam Diverticulosis Anxiety Insomnia Surgical History H/O colonoscopy S/P ACL reconstruction History of section Family History Mother Hypertension Thyroid disorder Father Diverticulitis Maternal Grandmother Thyroid disorder Social History Household Members: Children Household Members Other:: 14 years daughter, works in will be retired in July Housing: Apartment Do you presently have visiting nurse or other home services: No Alcohol intake: never Patient Tobacco Use Status: Never used Tobacco Second Hand Smoke Exposure: No service: No Current occupational status: employed Cognitive needs: No Hearing needs: No Vision needs: Yes Review of Systems Const All systems reviewed & are unremarkable except as noted in HPI and below Physical Exam Vital Signs: Last Vital Signs Temp 98.5 F 02/18/24 08:34 Pulse 92 02/18/24 08:34 BP 122/80 02/18/24 08:34 BMI result Body Mass Index 32.4 Const General: cooperative, healthy appearing, comfortable and no acute distress Orientation/consciousness: patient oriented x3 Limitations: no limitations HEENT Head: Yes normal to inspection Ears: external ears normal and TM's normal bilaterally General nose exam: Normal external nose present, Normal nares present and No nasal discharge present Face and sinus: Yes normal facial exam and Yes sinus tenderness (Maxillary) Mouth: Normal oral and palatal mucosa present and moist mucous membranes Throat: Yes posterior oropharynx abnormal (Erythematous) Eyes General: appearance normal, both eyes and all related structures Neck Neck: Yes normal visual inspection Resp Effort & Inspection: normal respiratory effort, able to speak in complete sentences, Actively coughing, no respiratory distress, not tachypneic, no tripod positioning and no use of accessory muscles Auscultation: clear to auscultation bilaterally Cardio Rate: regular rate Rhythm: regular rhythm Heart sounds: normal S1 and S2 Skin General skin exam: no rashes or lesions noted Neuro General: patient oriented x3 Extrem General: Yes normal to inspection and Yes no clubbing, cyanosis or edema Assessment & Plan Assessment & Plan (1) Sinusitis, acute maxillary: Code(s): J01.00 - Acute maxillary sinusitis, unspecified Qualifiers: Recurrence: non-recurrent Qualified Code(s): J01.00 - Acute maxillary sinusitis, unspecified Plan: As her symptoms seem to be getting worse with fevers and has been 5 days, sent Augmentin to pharmacy. Recommended staying hydrated and treating symptoms with [id number] medications. Gave red flag warning signs and when to seek emergent medical care or call 911. Plan See above Orders: Orders SARS-CoV2/FLU/RSV Today J06.9 - Acute upper respiratory infection, unspecified Medications: New amoxicillin-pot clavulanate 875-125 mg 1 tab PO Q12H 10 tabs 0RF Coding Level of Care Code Est Pt Level 4 (98086) Diagnoses Acute non-recurrent maxillary sinusitis J01.00 Recurrence: non-recurrent
--- OUTSIDE RECORDS SUMMARY | 2024-02-18 08:33 | XMS_ITS | Continuity of Care Document ---
Author Organization [facility] Address [address] [place] [address]- Encounter HIGM_FIN [id number] Date(s): 09/22/23 - 09/22/23 [facility] [address] [place] [address]- Encounter Diagnosis Constipation(Discharge Diagnosis) - 09/22/23 Urinary tract infection(Discharge Diagnosis) - 09/22/23 Discharge Disposition: Home or Self Care Attending Physician: Khai Awad DO Allergies, Adverse Reactions, Alerts Substance Reaction Severity Status Paxil Rash Moderate Active Medications Bactrim DS 800 mg-160 mg oral tablet 1 Tab Tab, PO, BID, 10 Day, 20 Tab, Refills: 0, 10/02/23 12:02:00 PM PST, Acute, Route to Pharmacy Electronically, [facility] #[id number] Start Date: 09/22/23 Stop Date: 10/02/23 Status: Ordered Problem List Condition Confirmation Course Effective Dates Status Health [facility] Informant Constipation Confirmed Active Results Laboratory List Name Date Urinalysis (POCT) 09/22/23 Most recent to oldest [Reference Range]: 1 UA Urobilinogen 0.2 (09/22/23 12:04 PM) Appearance Clear *NA* (09/22/23 12:04 PM) Color Yellow (09/22/23 12:04 PM) Specific [place] [1.003-1.035] <=1.005 *NA* (09/22/23 12:04 PM) UBilirubin [...] Electronically signed by: Kodi Mayer MD Transcribed by:FRANCK , , , S: 09/22/2023 12:40 * [...] (less than 100 in lifetime) entered on: 09/22/23 Sex Female Hospital Discharge Instructions Patient Education [...] as fried or sweet foods. These include ukrainian fries, hamburgers, cookies, candies, and soda. ??? Drink enough fluid to keep your urine pale yellow. General instructions ??? Exercise regularly or as told by your health care provider. Try to do 150 minutes of moderate exercise each week. ??? Use the bathroom when you have the urge to go. Do not hold it in. ??? Take awqv-bkw-mfwiceb and prescription medicines only as told by [...] keep your urine pale yellow. ??? Take dimx-vem-phgmnwu and prescription medicines only as told by your health care provider. This includes any fiber supplements. This information is not intended to replace advice given to you by your health care provider. Make sure you discuss any questions you have with your health care provider. Document Revised: 07/10/2020 Document Reviewed: 07/10/2020 rumr: turn off the lights Patient Education ?? 2022 [employer]. 09/22/2023 12:03:28 Urinary Tract Infection, Adult, Fkka-ug-Nmbf Urinary Tract Infection, Adult A urinary tract [...] these instructions at home: Medicines ??? Take jemy-jhq-feujyoq and prescription medicines only as told by [...] provider. Document Revised: 04/04/2021 Document Reviewed: 04/04/2021 rumr: turn off the lights Patient Education ?? 2022 [employer]. Follow Up Care 09/22/2023 11:37:00 With:Follow up with primary care provider Address:Unknown When:1 to 3 days Physician Emergency department Note * Khai Awad DO: PERFORM Event Display: ED Physician Notes Authored Date: [id number] Patient: ??ROZINA NAVARRO ? Age: ??53 years ?Sex: ??F ?: ??1970 ?Active Insurance: ??[place] OF [place] Admitting MD: ?Location: ??[facility] ED: ED06: 01 ?PCP: ?? Author: ??Khai [...] ? Urinalysis?? Urine Color: ?Yellow Urine Specific [place]: ?<=1.005 Urine UA PH: ?6.0 Urine UA [...] Comorbid Condition Impacting Present Evaluation/Treatment:??N/A ?? ECG/Rhythm Strip/Professor Of Physics Rhythm Interpretation (rhythm, rate, axis, QRS/T waves, acute/chronic changes, comparisons, clinical findings/diagnosis): ?? Imaging Studies: KUB ?? Tests Ordered and Tests Considered: UA ?? Cylinder Filler Discussion(s):??N/A ?? Independent Historian:??None ?? Social Determinants [...] Paxil??(Rash) Social History Alcohol Denies, 09/22/2023 Home/Environment Latter Day restrictions/concerns: None., 09/22/2023 Substance Abuse Denies, 09/22/2023 Tobacco Never (less than 100 in lifetime), 09/22/2023 Home Medications Bactrim DS 800 mg-160 mg oral tablet, 1 Tab, PO, BID Electronically Signed By: Khai Awad DO On 09/22/23 13:05 Co Signature By: Modify Signature By:
--- OUTSIDE RECORDS SUMMARY | 2024-02-18 08:33 | XMS_ITS | Continuity of Care Document ---
Author Organization [facility] Address [address] [place] [id number] Care Team Providers Care Inbound Sales Consultant Name Role Phone Roberto Morocho III, MD Primary Care Physician [phone] Encounter [facility] [place] Date(s): 12/02/21 - 01/30/[address] [id number] Attending Physician: [facility] , Self Referral Admitting Physician: [facility] , Self Referral Referring Physician: [facility] , Self Referral Allergies, Adverse Reactions, Alerts Substance Reaction Severity Status Paxil Hives Active Adhesive Bandage localized redness to affected area Active Medications Adderall = 20 mg, By Mouth, prn, 0 Refills, Maintenance, 12/28/14 7:57:59 EDT Start Date: 12/28/14 Status: Ordered black cohash black cohash, Refills 0, Maintenance, 06/19/21 12:39:00 EDT, Supply Start Date: 06/19/21 Status: Ordered Effexor XR 150 mg oral capsule, extended release 1 capsule = 150 mg, By Mouth, Daily, 0 Refills, Maintenance Start Date: 05/02/11 Status: Ordered Klonopin 0.5 mg oral tablet 1 tablet = 0.5 mg, By Mouth, 3 times a day, PRN Anxiety, 0 Refills, Maintenance Start Date: 05/02/11 Status: Ordered Probiotic Formula 1 capsule, By Mouth, Daily, 0 Refills, Maintenance, 05/17/16 14:16:42 Start Date: 05/17/16 Status: Ordered traZODone 50 mg oral tablet 25 mg, 0.5, tablet, By Mouth, Daily at bedtime, # 15 tablet, Refills 0, Maintenance, 04/04/19 10:08:15 EDT Start Date: 04/04/19 Status: Ordered Problem List Condition Effective Dates Status Health Status Inform ant Anxiety(Confirmed) Active
--- OUTSIDE RECORDS SUMMARY | 2024-02-18 08:33 | XMS_ITS | Continuity of Care Document ---
Author Name [employer] [facility] [employer]rajoule [facility] Care Team Providers Care Machine Stripper Name Role Phone [facility] Unavailable Problems Problem Status Onset Date Classification Date Reported Comments Source Anxiety (finding) Active 10/06/2023 [facility] [place],[facility] Constipation (disorder) Active 10/06/2023 [facility] Diverticulitis (disorder) Active 10/06/2023 [facility] Urinary tract infectious disease (disorder) 10/06/2023 [facility] Drug allergy (disorder) 10/06/2023 [facility] Left upper quadrant pain (finding) 10/06/2023 [facility] Long-term current use of drug therapy (situation) 10/06/2023 [facility] Steatosis of liver (disorder) 10/06/2023 [facility] Medications Medication Details Route Status Patient Instructions Ordering Provider Order Date Source omeprazole 40 mg oral enteric coated capsule 1 Cap Cap, ER, PO, Daily, Qty: 30 Cap, Refills: 0, Maintenance, Route to Pharmacy Electronically , [facility][id number] Inactive 024 [facility] en dicyclomine 10 mg oral capsule 1 Cap Cap, PO, QID, PRN, abdominal pain/spasm, Qty: 30 Cap, Refills: 0, Maintenance, Route to Pharmacy Electronically , [facility] #[id number] Inactive 024 [facility] en ketorolac 10 mg, IV Push, INJ, x1 STAT, Start: 09/28/23 12:44:00 PM PST, Stop: 09/28/23 12:54:44 PM PST, For ED Use OnlyNotes: Note dose, age, renal function, duration C: Anti-inflammat ory (NSAID); I: Pain Control; SE: heartburn, nausea Inactive [facility] traZODone PO, Refills: 0, Maintenance Active [facility] en Effexor PO, Refills: 0, Maintenance Active 024 [facility] en Bactrim DS 800 mg-160 mg oral tablet 1 Tab Tab, PO, BID, 10 Day, 20 Tab, Refills: 0, 10/02/23 12:02:00 PM PST, Acute, Route to Pharmacy Electronically , [facility] #[id number] Inactive [facility] en Allergies, Adverse Reactions, Alerts Substance Category Reaction Severity Reaction type Status Date Reported Comments Source Paxil Assertion Eruption (morpholog ic abnormalit y) Moderate Drug allergy Active [facility] en,[facility] en Results Order Name Results Value Reference Range Date Interpretation Comments Source CMP Sodium 139 136 - 145 09/28 [facility] CMP Potassium 4.4 3.5 - 5.1 09/28 [facility] CMP Chloride 104 98 - 107 09/28 [facility] CMP CO2 23 20 - 27 09/28 [facility] CMP Glucose Level 91 70 - 105 09/28 [facility] CMP BUN 13 8 - 25 09/28 [facility] CMP Creatinine 1.13 0.57 - 1.25 09/28 [facility] CMP BUN/[place] Ratio 11.5 8.0 - 24.0 09/28 [facility] CMP Anion Gap 12 7 - 15 09/28 [facility] CMP Calcium 9.5 8.4 - 10.2 09/28 [facility] CMP Protein, Total 7.8 6.0 - 8.3 09/28 [facility] CMP Albumin 4.4 3.5 - 5.0 09/28 [facility] CMP Alkphos 74 40 - 150 09/28 [facility] CMP ALT 27 6 - 55 09/28 [facility] CMP AST 22 5 - 34 09/28 [facility] CMP Bili Total 0.4 0.2 - 1.2 09/28 [facility] eGFRcr 57 >=90 09/28 L As of 03-31-2022, reported eGFR is based [...] <18 years and will not be performed. [facility] CMP Globulin 3 09/28 [facility] CMP A/G Ratio 1 09/28 [facility] CMP Heme Index Negative 09/28 [facility] CMP Icteric Index Negative 09/28 [facility] CMP Lipemia Index Negative 09/28 [facility] Lipase Lipase 26.0 8.0 - 78.0 09/28 [facility] Lipase Icteric Index Negative 09/28 [facility] Lactic Rflx Lactic Acid 0.7 0.5 - 1.9 09/28 [facility] Lactic Rflx Heme Index 1+ 09/28 ABN [facility] Lactic Rflx Icteric Index Negative 09/28 [facility] Lactic Rflx Lipemia Index Negative 09/28 [facility] UA Microscopic URBC 0-4 None 09/28 [facility] UA Microscopic Urine WBCs 0-4 0 - 4 09/28 [facility] UA Microscopic UBacteria None 09/28 [facility] UA Microscopic UA Squam Epithelial None None 09[facility]28 [facility]/Diff WBC 7.9 4.5 - 13.5 09/28 [facility] w/Diff RBC 4.71 4.00 - 5.40 09/28 [facility] CBC w/Diff Hgb 14.7 11.5 - 16.0 09/28 [facility] CBC w/Diff Hct 43.4 37.0 - 47.0 09/28 [facility] w/Diff MCV 92.3 80.0 - 100.0 09/28 [facility] CBC w/Diff MCH 31.2 27.0 - 34.0 09/28 [facility] CBC w/Diff MCHC 33.8 32.0 - 37.0 09/28 [facility] CBC w/Diff RDW 13.5 11.5 - 16.0 09/28 [facility] CBC w/Diff Plt 334 130 - 400 09/28 [facility] CBC w/Diff Neuts 49.2 35.0 - 80.0 09/28 [facility] CBC w/Diff Lymphs 36.0 10.0 - 55.0 09/28 [facility] CBC w/Diff Monos. 9.1 0.0 - 15.0 09/28 [facility] w/Diff Eos. 4.4 0.0 - 9.0 09/28 [facility] CBC w/Diff Baso. 1.3 0.0 - 3.0 09/28 [facility] w/Diff ABS Neut 3.9 1.7 - 8.6 09/28 [facility] w/Diff ABS Lymph 2.8 0.5 - 5.9 09/28 [facility] CBC w/Diff ABS [place] 0.7 0.0 - 1.6 09/28 [facility] CBC w/Diff ABS Eos 0.3 0.0 - 1.0 09/28 [facility] CBC w/Diff ABS Baso 0.1 0.0 - 0.3 09/28 [facility] CBC w/Diff CBC Scan Auto Diff 09/28 [facility] CBC w/Diff nRBC Auto 0 09/28 [facility] CBC w/Diff MPV 8.4 7.5 - 11.5 09/28 [facility] UA RfMicCIF Appearance CLEAR Clear 09/28 [facility] UA RfMicCIF Color YELLOW Yellow 09/28 [facility] RfMicCIF Specific [place] <=1.005 1.003 - 1.035 09/28 [facility] RfMicCIF UpH 6.0 7.0 09/28 [facility] RfMicCIF UBlood 1+ Negative 09/28 ABN [facility] RfMicCIF UBilirubin NEGATIVE Negative 09/28 [facility] RfMicCIF UGlucose NEGATIVE Negative 09/28 [facility] RfMicCIF UKetones NEGATIVE Negative 09/28 [facility] RfMicCIF ULeukocyte Esterase NEGATIVE Negative 09/28 [facility] RfMicCIF UNitrite NEGATIVE Negative 09/28 [facility] [employer] UProtein NEGATIVE Negative 09/28 [facility] [employer] UA Urobilinogen 0.2 0.2 E.U./dL 09/28 [facility] RfMicCIF Urine Culture if Indicated Not Indicated 09/28 Urine Culture not ordered due to one or more of the following conditions: *Patient Age >=2 *UA WBC <10 *The always cultured indication reason chosen was not: Urological Procedure ANC <500 w symptoms Renal Transplant 1st 30 d Organ Donor [facility] CBC CBC Scan Auto Diff (09/28/23 1:13 PM) 09/28 [facility] CBC WBC 7.9 4.5 - 13.5 09/28 [facility] CBC RBC 4.71 4.00 - 5.40 09/28 [facility] CBC Hgb 14.7 11.5 - 16.0 09/28 [facility] CBC Hct 43.4 37.0 - 47.0 09/28 [facility] CBC MCV 92.3 80.0 - 100.0 09/28 [facility] CBC MCH 31.2 27.0 - 34.0 09/28 [facility] CBC MCHC 33.8 32.0 - 37.0 09/28 [facility] CBC RDW 13.5 11.5 - 16.0 09/28 [facility] CBC Plt 334 130 - 400 09/28 [facility] CBC MPV 8.4 7.5 - 11.5 09/28 [facility] CBC Neuts 49.2 35.0 - 80.0 09/28 [facility] CBC Lymphs 36.0 10.0 - 55.0 09/28 [facility] CBC Monos. 9.1 0.0 - 15.0 09/28 [facility] CBC Eos. 4.4 0.0 - 9.0 09/28 [facility] CBC Baso. 1.3 0.0 - 3.0 09/28 [facility] CBC ABS Neut 3.9 1.7 - 8.6 09/28 [facility] CBC ABS Lymph 2.8 0.5 - 5.9 09/28 [facility] CBC ABS [place] 0.7 0.0 - 1.6 09/28 [facility] CBC ABS Eos 0.3 0.0 - 1.0 09/28 [facility] CBC ABS Baso 0.1 0.0 - 0.3 09/28 [facility] CBC nRBC Auto 0 09/28 [facility] General Chemistry eGFRcr 57 09/28 Interpretive Data: As of 03-31-2022, reported eGFR is [...] <18 years and will not be performed. [facility] General Chemistry Bili Total 0.4 0.2 - 1.2 09/28 [facility] General Chemistry Sodium 139 136 - 145 09/28 [facility] General Chemistry Potassium 4.4 3.5 - 5.1 09/28 [facility] General Chemistry Chloride 104 98 - 107 09/28 [facility] General Chemistry CO2 23 20 - 27 09/28 [facility] General Chemistry Anion Gap 12 7 - 15 09/28 [facility] General Chemistry Glucose Level 91 70 - 105 09/28 [facility] General Chemistry BUN 13 8 - 25 09/28 [facility] General Chemistry Creatinine 1.13 0.57 - 1.25 09/28 [facility] General Chemistry Protein, Total 7.8 6.0 - 8.3 09/28 [facility] General Chemistry Albumin 4.4 3.5 - 5.0 09/28 [facility] General Chemistry Calcium 9.5 8.4 - 10.2 09/28 [facility] General Chemistry Alkphos 74 40 - 150 09/28 [facility] General Chemistry AST 22 5 - 34 09/28 [facility] General Chemistry ALT 27 6 - 55 09/28 [facility] General Chemistry BUN/[place] Ratio 11.5 8.0 - 24.0 09/28 [facility] General Chemistry Globulin 3 09/28 [facility] General Chemistry A/G Ratio 1 09/28 [facility] General Chemistry Lipase Level 26.0 8.0 - 78.0 09/28 [facility] General Chemistry Lactic Acid 0.7 0.5 - 1.9 09/28 [facility] URBC 0-4 (09/28/23 1:13 PM) None 09/28 [facility] Urine WBCs 0-4 (09/28/23 1:13 PM) 0 - 4 09/28 [facility] UBacteria None (09/28/23 1:13 PM) 09/28 [facility] Ur[facility]ysis UA Squam Epithelial None (09/28/23 1:13 PM) None 09/28 [facility] Ur[facility] Color Yellow (09/28/23 1:13 PM) Yellow 09/28 [facility] Ur[facility] Appearance Clear (09/28/23 1:13 PM) Clear 09/28 [facility] Ur[facility] UGlucose Negative (09/28/23 1:13 PM) Negative 09/28 [facility] Ur[facility] UBilirubin Negative (09/28/23 1:13 PM) Negative 09/28 [facility] Urinalysis UKetones Negative (09/28/23 1:13 PM) Negative 09/28 [facility] Urinalysis Specific [place] <=1.005 *ABN* (09/28/23 1:13 PM) 1.003 - 1.035 09/28 [facility] UBlood 1+ *ABN* (09/28/23 1:13 PM) Negative 09/28 [facility] Ur[facility]ysis UpH 6.0 (09/28/23 1:13 PM) 7.0 09/28 [facility] Ur[facility] UProtein Negative (09/28/23 1:13 PM) Negative 09/28 [facility] Ur[facility]ysis UA Urobilinogen 0.2 E.U./dL (09/28/23 1:13 PM) 0.2 E.U./dL 09/28 [facility] Ur[facility] UNitrate Negative (09/28/23 1:13 PM) Negative 09/28 [facility] Urinalysis ULeu Negative (09/28/23 1:13 PM) Negative 09/28 [facility] Urinalysis UCIF Yes/No Not Indicated 1 *NA* (09/28/23 1:13 PM) 09/28 Result Comment: Urine Culture not ordered due to one or more of the following conditions: *Patient Age >=2 *UA WBC <10 *The always cultured indication reason chosen was not: Urological Procedure ANC <500 w symptoms Renal Transplant 1st 30 d Organ Donor [facility] Urinalysis (POCT) Appearance Clear 09/22 [facility] een Urinalysis (POCT) Color Yellow Straw 09[facility] UpH 6.0 5.0 - 7.0 09/22 [facility] Urinalysis (POCT) UBlood Trace-lyse d 09/22 [facility] een Urinalysis (POCT) UBilirubin Negative Negative 09/22 [facility] een Urinalysis (POCT) UGlucose Negative Negative 09/[facility] UKetones Negative Negative 09/[facility]) ULeukocyte Esterase Large Negative 09/22 ABN [facility] een Urinalysis (POCT) UNitrite Negative Negative 09/22 [facility] een Urinalysis (POCT) UProtein Negative Negative 09/[facility]) Specific [place] <=1.005 1.003 - 1.035 09/[facility] ([facility]) UA Urobilinogen 0.2 0.2 09/[facility] Appearance Clear *NA* (09/22/23 12:04 PM) 09/22 [facility] Urinalysis UBilirubin Negative (09/22/23 12:04 PM) Negative 09/22 [facility] Urinalysis UBlood Trace-lyse d 09/22 [facility] Urinalysis Color Yellow (09/22/23 12:04 PM) Straw 09/22 [facility] Urinalysis UGlucose Negative (09/22/23 12:04 PM) Negative 09/22 [facility] Urinalysis UKetones Negative (09/22/23 12:04 PM) Negative 09/22 [facility] Urinalysis ULeu Large *ABN* (09/22/23 12:04 PM) Negative 09/22 [facility] Urinalysis UNitrate Negative (09/22/23 12:04 PM) Negative 09/22 [facility] Urinalysis UpH 6.0 5.0 - 7.0 09/22 [facility] Urinalysis UProtein Negative (09/22/23 12:04 PM) Negative 09/22 [facility] Urinalysis Specific [place] <=1.005 1.003 - 1.035 09/22 [facility] Urinalysis UA Urobilinogen 0.2 (09/22/23 12:04 PM) 0.2 09/22 [facility] Diagnostic Reports Report Value Date Source US Abdomen Limited Reason For Exam Abdomen Pain Epigastric PROCEDURE INFORMATION: Exam: US Abdomen, Limited; Right [...] I N A L * * * 09/28/2023 [facility] [address] Abdomen+Pelvis w IV Con Reason For Exam Abdominal Pain Radiation Dose CTDIVOL = 0 (mGy): DLP [...] I N A L * * * 09/28/2023 [facility] RADRPT
PROCEDURE INFORM ATION: Exam: US Abdomen, Limited; Right Upper Quadrant [...] focal fatty sparing in the left lobe.
Exam Date Time Procedure Performing Provider Status 09/28/23 3:32 PM US Abdomen Limited Contributor_system, [employer]GRAD; Auth (Verified) Notes:(US Abdomen Limited) Reason For Exam: Abdomen Pain EpigastricRADRPT PROCEDURE INFORMATION: Exam: US Abdomen, Limited; Right [...] I N A L * * *
09/28/2023 [facility] RADRPT
PROCEDURE INFORM ATION: Exam: US Abdomen, Limited; Right Upper Quadrant [...] focal fatty sparing in the left lobe.
Exam Date Time Procedure Performing Provider Status 09/28/23 3:32 PM US Abdomen Limited Contributor_system, [employer]; Auth (Verified) Notes:(US Abdomen Limited) Reason For Exam: Abdomen Pain EpigastricRADRPT PROCEDURE INFORMATION: Exam: US Abdomen, Limited; Right [...] I N A L * * *
09/28/2023 [facility] RADRPT
Radiation Dose C TDIVOL = 0 (mGy): DLP = 646.6 (mGy-cm) [...] evidence of acute diverticulitis. 2. Hepatic steatosis.
Exam Date Time Procedure Performing Provider Status 09/28/23 2:[address] Abdomen+Pelvis w IV Con Contributor_system, [employer]GRAD; Auth (Verified) Notes:(CT Abdomen+Pelvis w IV Con) Reason For Exam: Abdominal PainRADRPT Radiation Dose CTDIVOL = 0 (mGy): DLP [...] I N A L * * *
09/28/2023 [facility]
Radiation Dose C TDIVOL = 0 (mGy): DLP = 646.6 (mGy-cm) [...] evidence of acute diverticulitis. 2. Hepatic steatosis.
Exam Date Time Procedure Performing Provider Status 09/28/23 2:[address] Abdomen+Pelvis w IV Con Contributor_system, [employer]GRAD; Auth (Verified) Notes:(CT Abdomen+Pelvis w IV Con) Reason For Exam: Abdominal PainRADRPT Radiation Dose CTDIVOL = 0 (mGy): DLP [...] I N A L * * *
09/28/2023 [facility] XR Abdomen AP Reason For Exam Abdomen Pain LUQ PROCEDURE INFORMATION: Exam: XR Abdomen Exam date [...] I N A L * * * [facility]
PROCEDURE INFORM ATION: Exam: XR Abdomen Exam date and time: [...] radiopaque densities. IMPRESSION: Nonspecific bowel gas pattern.
Exam Date Time Procedure Performing Provider Status 09/22/23 12:33 PM XR Abdomen AP Contributor_system, [employer]AD; Auth (Verified) Notes:(XR Abdomen AP) Reason For Exam: Abdomen Pain LUQRADRPT PROCEDURE INFORMATION: Exam: XR Abdomen Exam date [...] I N A L * * *
[facility]
PROCEDURE INFORM ATION: Exam: XR Abdomen Exam date and time: [...] radiopaque densities. IMPRESSION: Nonspecific bowel gas pattern.
Exam Date Time Procedure Performing Provider Status 09/22/23 12:33 PM XR Abdomen AP Contributor_system, [employer]; Auth (Verified) Notes:(XR Abdomen AP) Reason For Exam: Abdomen Pain LUQRADRPT PROCEDURE INFORMATION: Exam: XR Abdomen Exam date [...] I N A L * * *
[facility] Results Value Date Source Discharge Instructions Document [facility] [address] [place] [address] ROZINA NAVARRO :1970 () Visit Date:09/28/2023 SAFE PAIN MEDICINE PRESCRIBING We care about you. Our goal is to treat your medical conditions, including pain, effectively, safely and in the right way. Pain relief treatment can be complicated. Mistakes or abuse of pain medicine can cause serious health problems and . Our emergency department will only provide pain relief options that are safe and correct. For your SAFETY, we routinely follow these rules when helping you with your pain. We look for and treat emergencies. We use our best judgement when treating pain. These recommendations follow legal and ethical advice. You should have only ONE provider and ONE pharmacy helping you with pain. We do not usually prescribe pain medication if you already receive pain medicine from another health care provider. If pain prescriptions are needed for pain, we will only give you a limited amount. We do not refill stolen or lost prescriptions for pain medication. We do not prescribe long-acting pain medicines such as: OxyContin, MSContin, Fentanyl (Duragesic), Methadone, Opana ER, Exalgo, and others. We do not provide missed doses of Methadone. We do not usually give shots for flare-ups of chronic pain. Health care laws, including HIPAA, allow us to ask for all of your medical records. These laws allow us to share information with other health providers who are treating you. We may ask you to show a photo ID when you receive a prescription for pain medicines. In [place], we use the [place] Prescription Drug Monitoring Program called [employer]. In [place] and [place], we use the Prescription Monitoring Program that has oversight by the [place] [facility] boards of pharmacy. These statewide computer systems track opioid pain medications and other controlled substance prescriptions. If you need help with substance abuse or addiction, please call [phone] ([phone] for confidential referral and treatment. Sponsored by: [employer]VANCING EMERGENCY CARE PROJECT DEVELOPMENT LEADER [facility] [employer] Safe Practice, Safe Care [facility] Emergency Department Patient Discharge Instructions If your symptoms continue or worsen, return to the emergency department or contact your physician. If you have questions about your discharge instructions, call the phone number above. Providers Attending Physician - Alexander Bo MD Provider Role Alexander Bo MD ED Provider Reason for Visit 1) Abdominal pain 2) Abdominal pain Discharge Diagnosis Left upper quadrant abdominal pain Discharge Vitals T: 36.8 ?C (Oral) HR: 87 RR: 16 BP: 142/87 SpO2: 97% Oxygen Method: Room air HT: 160.02 cm WT: 180 lbs WT: 81.633 kg BMI: 31.88 BSA: 1.9 Time patient left the ED These instructions are intended to provide general information and guidelines to follow at home to properly care for your particular medical problem. The following diagnostic tests and/or procedures were performed during your stay. Tests Performed CBC w/Diff* (man diff if indicated) CMP (BMP + ALB, Tot Prot, Bili, CA, Alk Phos, ALT, AST) Lactic Acid w/Reflex Lipase Level Urinalysis UA Rflx Microscop Cult if Ind zUrinalysis Microscopic CT Abdomen+Pelvis w IV Con US Abdomen Limited Most Recent Lab Results CBC w/Diff* (man diff if indicated) (09/28/2023) WBC - 7.9 thousand/uL RBC - 4.71 million/uL Hgb - 14.7 gm/dL Hct - 43.4 % MCV - 92.3 fL MCH - 31.2 pg MCHC - 33.8 gm/dL RDW - 13.5 % Plt - 334 thousand/uL MPV - 8.4 fL Neuts - 49.2 % Lymphs - 36.0 % Monos. - 9.1 % Eos. - 4.4 % Baso. - 1.3 % ABS Neut - 3.9 thousand/uL ABS Lymph - 2.8 thousand/uL ABS [place] - 0.7 thousand/uL ABS Eos - 0.3 thousand/uL ABS Baso - 0.1 thousand/uL CBC Scan - Auto Diff nRBC Auto - 0 CMP (BMP + ALB, Tot Prot, Bili, CA, Alk Phos, ALT, AST) (09/28/2023) Sodium - 139 mmol/L Potassium - 4.4 mmol/L Chloride - 104 mmol/L CO2 - 23 mmol/L Anion Gap - 12 mmol/L Glucose Level - 91 mg/dL BUN - 13 mg/dL Creatinine - 1.13 mg/dL BUN/[place] Ratio - 11.5 eGFRcr - 57 mL/min/1.73m2 Calcium - 9.5 mg/dL Protein, Total - 7.8 gm/dL Albumin - 4.4 gm/dL Globulin - 3 gm/dL A/G Ratio - 1 Bili Total - 0.4 mg/dL ALT - 27 Units/L AST - 22 Units/L Alkphos - 74 Units/L Lactic Acid w/Reflex (09/28/2023) Lactic Acid - 0.7 mmol/L Lipase Level (09/28/2023) Lipase - 26.0 Units/L Urinalysis UA Rflx Microscop Cult if Ind (09/28/2023) Color - YELLOW nssa Appearance - Clear-clin norm sys Specific [place] - <=1.005 UpH - 6.0 UGlucose - Negative UBilirubin - Negative UKetones - Negative UBlood - 1+ UProtein - Negative UA Urobilinogen - 0.2 E.U./dL UNitrite - Negative ULeukocyte Esterase - Negative Urine Culture if Indicated - Culture Not Indicated zUrinalysis Microscopic (09/28/2023) UA Squam Epithelial - None Urine WBCs - 0-4 URBC - 0-4 UBacteria - None Follow-up Instructions: All referrals for follow up medical care may require approval by your insurance carrier. Any provider contact information (below) is provided to assist you in getting the follow up we recommend. However, it's important that you first check with your insurance provider to assure that the provider is in yourinsurance provider to assure that the provider is in your network and such a visit will be covered. Some plans may require a Primary Care doctor to provide a referral for specialist appointments. You May Need to Schedule the Following Appointments Follow Up with Your GI Doctor of primary care doctor when you go home When Within 1 to 2 weeks Why: Return to ED if symptoms worsen We encourage you to sign up for My Portal, where you can easily access your medical records and test results from all [facility]. Please sign up in one of the following ways: 1. Email invitation. You may have a message in your inbox. Please click the link provided to create an account. OR 2. Request an invitation at your next clinic or hospital visit. Please ask a staff member and they will be happy to assist you. Medications DO NOT STOP TAKING ANY MEDICATIONS WITHOUT CONTACTING YOUR PHYSICIAN What How Much When Instructions Next Dose New dicyclomine (dicyclomine 10 mg oral capsule) 1 cap By mouth Four times daily as needed for abdominal pain/spasm Duration: 7 Days Pickup at [facility] #[id number] New omeprazole (omeprazole 40 mg oral enteric coated capsule) 1 cap By mouth Once daily Duration: 30 Days Pickup at [facility] #[id number] Unchanged sulfamethoxazole-trimethoprim (Bactrim DS 800 mg-160 mg oral tablet) 1 tab(s) By mouth Twice daily Duration: 10 Days Unchanged traZODone By mouth Unchanged venlafaxine (Effexor) By mouth Pharmacy Information [facility] #[id number]: [address], [place] [phone] Discharge Orders Discharge Orders: Discharge Now, Home or self care Education Materials Abdominal Pain, Adult Many things can cause belly (abdominal) pain. Most times, belly pain is not dangerous. Many cases of belly pain can be watched and treated at home. Sometimes, though, belly pain is serious. Your doctor will try to find the cause of your belly pain. Follow these instructions at home: Medicines Take fngt-hpf-dokxlje and prescription medicines only as told by your doctor. Do not take medicines that help you poop (laxatives) unless told by your doctor. General instructions Watch your belly pain for any changes. Drink enough fluid to keep your pee (urine) pale yellow. Keep all follow-up visits as told by your doctor. This is important. Contact a doctor if: Your belly pain changes or gets worse. You are not hungry, or you lose weight without trying. You are having trouble pooping (constipated) or have watery poop (diarrhea) for more than 2?3 days. You have pain when you pee or poop. Your belly pain wakes you up at night. Your pain gets worse with meals, after eating, or with certain foods. You are vomiting and cannot keep anything down. You have a fever. You have blood in your pee. Get help right away if: Your pain does not go away as soon as your doctor says it should. You cannot stop vomiting. Your pain is only in areas of your belly, such as the right side or the left lower part of the belly. You have bloody or black poop, or poop that looks like tar. You have very bad pain, cramping, or bloating in your belly. You have signs of not having enough fluid or water in your body (dehydration), such as: Dark pee, very little pee, or no pee. Cracked lips. Dry mouth. Sunken eyes. Sleepiness. Weakness. You have trouble breathing or chest pain. Summary Many cases of belly pain can be watched and treated at home. Watch your belly pain for any changes. Take peol-iwc-pjjrqpn and prescription medicines only as told by your doctor. Contact a doctor if your belly pain changes or gets worse. Get help right away if you have very bad pain, cramping, or bloating in your belly. This information is not intended to replace advice given to you by your health care provider. Make sure you discuss any questions you have with your health care provider. Document Revised: 01/01/2020 Document Reviewed: 01/01/2020 Elsevier Patient Education ? 2022 [employer] Valuables and Belongings Clothes at Bedside: Pants, Shirt, Shoes Electronics at Bedside: None Jewelry at Bedside: None Miscellaneous Items at Bedside: Purse/Wallet Personal Devices at Bedside: None I understand that [facility] is not responsible for any personal belongings/effects or valuables that have not been identified on the valuables and belongings list. Any personal effects brought into the facility and not recorded on the valuables and belongings form are the responsibility of the patient/family/significant other. I have received the indicated patient education materials/instructions and medication list and have verbalized understanding. Patient Name: ROZINA NAVARRO Patient/Responsible Adult Signature: Date/Time: Provider Signature: Date/Time: 09/29/2023 [facility] ED Procedure and Supply Charges - Text ED Procedure and Supply Charges Entered On: 09/29/2023 9:10 Christina/Maiden Performed On: 09/28/2023 13:54 MST by MAMI BARBER ED Infusions, Vascular and Lab - Charges INJ TX/DX/PRO IV PUSH SEQ v2 : 1 MAMI BARBER - 09/29/2023 9:10 Christina/Maiden 09/28/2023 [facility] ED Procedure and Supply Charges - Text ED Procedure and Supply Charges Entered On: 09/29/2023 9:09 Christina/Maiden Performed On: 09/28/2023 13:53 MST by MAMI BARBER ED Infusions, Vascular and Lab - Charges INJ TX/DX/PRO IVPUSH INIT v2 : Yes MAMI BARBER - 09/29/2023 9:09 Christina/Maiden 09/28/2023 [facility] ED Physician Notes Patient: ROZINA NAVARRO () Age: 53 years Sex: F : 1970 Associated Diagnoses: None Author: Alexander Bo MD Basic Information Time seen: Provider Initial Contact Time 09/28/2023 13:10. History source: Patient. Arrival mode: Private vehicle, walking. History limitation: None. Additional information: Chief Complaint (ST) Chief Complaint ED[facility] 09/28/23 12:51, Subjective Nursing Assessment: pt stated that she was seen at [facility] last week and dx with constipation. but [...] She notes it really did not make any difference. She never had any dysuria. The pain is left upper quadrant pain, nonradiating to the back or shoulder. There is no pain with inspiration. No cough. She has had a history of diverticulitis but she notes it does not feel like [...] History Medical history: All Problems Anxiety / 56476014 / Confirmed Constipation / 95073944 / Confirmed Diverticulitis / 946808161 / Confirmed. Surgical history: section ().. Social history: Social and Psychosocial Habits Alcohol 09/28/2023 Use: Denies Home/Environment 09/28/2023 Buddhist restrictions/concerns: None Substance Abuse 09/28/2023 Use: Denies [...] Numeric Rating Scale . Measurements 09/28/2023 12:51 [facility] BSA-pt care 1.9 [place] Body Weight 52.4 kg Weight Method Stated [...] No murmur, Normal peripheral perfusion, No edema, Arterial pulses: Bilateral, radial, femoral, normal, 2+. Respiratory: Lungs are clear to auscultation, respirations are non-labored, breath sounds are equal, Symmetrical chest wall expansion. Gastrointestinal: Soft, Non distended, Normal bowel sounds, Tenderness: Mild, right upper quadrant, left upper quadrant, right lower quadrant, right flank [...] Lymphatics: No lymphadenopathy. Psychiatric: Cooperative, appropriate mood and affect. Medical Decision Making Differential Diagnosis: Abdominal pain, renal stone, biliary colic, cholecystitis, hepatitis, pancreatitis, pyelonephritis, peptic ulcer disease, gastritis, abdominal aortic aneurysm, ischemic bowel, diverticulitis, constipation not Appendicitis, not bowel obstruction, not [...] Normal ABS Lymph 2.8 thousand/uL Normal ABS [place] 0.7 thousand/uL Normal ABS Eos 0.3 thousand/uL Normal ABS Baso 0.1 thousand/uL Normal CBC Scan Auto Diff nRBC Auto 0 NA Sodium 139 mmol/L Normal Potassium 4.4 mmol/L Normal Chloride 104 mmol/L Normal CO2 23 mmol/L Normal Anion Gap 12 mmol/L Normal Glucose Level 91 mg/dL Normal BUN 13 mg/dL Normal Creatinine 1.13 mg/dL Normal BUN/[place] Guide Ratio 11.5 Normal eGFRcr 57 mL/min/1.73m2 L Calcium 9.5 mg/dL Normal Protein, Total 7.8 gm/dL Normal Albumin 4.4 gm/dL Normal Globulin 3 gm/dL NA A/G Ratio 1 NA Bili Total 0.4 mg/dL Normal ALT 27 Units/L Normal AST 22 Units/L Normal Alkphos 74 Units/L Normal Lipase 26.0 Units/L Normal Lactic Acid 0.7 mmol/L Normal Color Yellow Appearance Clear Specific [place] <=1.005 UpH 6.0 UGlucose Negative UBilirubin Negative UKetones Negative UBlood 1+ UProtein Negative UA Urobilinogen 0.2 E.U./dL UNitrite Negative ULeukocyte Esterase Negative Urine Culture if Indicated Not Indicated UA Squam Epithelial None Urine WBCs 0-4 URBC 0-4 UBacteria None . Radiology results: Radiologist's interpretation Name: ROZINA NAVARRO Account: [id number] : 1970 Result Date: 09/28/23 15:32 Verified By: Johnnie Ya MD at 09/28/23 15:51 Report : US Abdomen Limited IMPRESSION: Fatty infiltration of the liver with focal fatty sparing in the left lobe. 09/28/23 15:10 +++++++++++++++++++++++++++++++++++ ++++++++++++++++++++ Result Date: 09/28/23 14:51 Verified By: Barby Hines DO at 09/28/23 15:04 Report : CT Abdomen+Pelvis w IV Con IMPRESSION: 1. Moderate diffuse colonic diverticulosis without evidence of acute diverticulitis. 2. Hepatic steatosis. 09/28/23 14:41 +++++++++++++++++++++++++++++++++++ ++++++++++++++++++++ . Reexamination/ Reevaluation Time: 09/28/2023 18:16:00 . [...] and Plan Left upper quadrant abdominal pain (TSI75-UT R10.12, Discharge, Medical) Plan Condition: Unchanged. Disposition: Discharged: Time 09/28/2023 18:18:00, to home. Prescriptions: [facility]: dicyclomine 10 mg oral capsule (Prescribe): 1 Cap, PO, QID, for 7 Day, PRN: abdominal pain/spasm, 30 Cap, 0 Refill(s) omeprazole 40 mg oral enteric coated capsule (Prescribe): 1 Cap, PO, Daily, for 30 Day, 30 Cap, 0 Refill(s). Patient was given the following educational materials: Abdominal Pain, Adult, [id number]-[id number]. Follow up with: Your GI Doctor of primary care doctor when you go home Within 1 to 2 weeks Return to ED if symptoms worsen. Counseled: Patient, Regarding diagnosis, Regarding diagnostic results, Regarding treatment plan, Regarding prescription, Patient indicated understanding of instructions. Electronically Signed By: Alexander Bo MD On 09/28/23 18:19 Co Signature By: Modify Signature By: Alexander Bo MD On 09/28/23 18:19 09/28/2023 [facility] ED Procedure and Supply Charges - Text ED Procedure and Supply Charges Entered On: 09/29/2023 9:10 Christina/Maiden Performed On: 09/28/2023 13:25 MST by MAMI BARBER ED Infusions, Vascular and Lab - Charges INF IV HYDRAT EA ADD HR v2 : 1 hr MAMI BARBER - 09/29/2023 9:10 Christina/Maiden 09/28/2023 [facility] Physician Emergency department Note Patient: ROZINA NAVARRO () Age: 53 years Sex: F : 1970 Associated Diagnoses: None Author: Alexander Bo MD Basic Information Time seen: Provider Initial Contact Time 09/28/2023 13:10. History source: Patient. Arrival mode: Private vehicle, walking. History limitation: None. Additional information: Chief Complaint (ST) Chief Complaint ED: [facility] 09/28/23 12:51, Subjective Nursing Assessment: pt stated that she was seen at [facility] last week and dx with constipation. but [...] She notes it really did not make any difference. She never had any dysuria. The pain is left upper quadrant pain, nonradiating to the back or shoulder. There is no pain with inspiration. No cough. She has had a history of diverticulitis but she notes it does not feel like [...] History Medical history: All Problems Anxiety / [id number] / Confirmed Constipation / 53811502 / Confirmed Diverticulitis / 329999882 / Confirmed. Surgical history: section ([id number]).. Social history: Social and Psychosocial Habits Alcohol 09/28/2023 Use: Denies Home/Environment 09/28/2023 Buddhist restrictions/concerns: None Substance Abuse 09/28/2023 Use: Denies [...] Numeric Rating Scale . Measurements 09/28/2023 12:51 [facility] BSA-pt care 1.9 [place] Body Weight 52.4 kg Weight Method Stated [...] No murmur, Normal peripheral perfusion, No edema, Arterial pulses: Bilateral, radial, femoral, normal, 2+. Respiratory: Lungs are clear to auscultation, respirations are non-labored, breath sounds are equal, Symmetrical chest wall expansion. Gastrointestinal: Soft, Non distended, Normal bowel sounds, Tenderness: Mild, right upper quadrant, left upper quadrant, right lower quadrant, right flank [...] Lymphatics: No lymphadenopathy. Psychiatric: Cooperative, appropriate mood and affect. Medical Decision Making Differential Diagnosis: Abdominal pain, renal stone, biliary colic, cholecystitis, hepatitis, pancreatitis, pyelonephritis, peptic ulcer disease, gastritis, abdominal aortic aneurysm, ischemic bowel, diverticulitis, constipation not Appendicitis, not bowel obstruction, not [...] Normal ABS Lymph 2.8 thousand/uL Normal ABS [place] 0.7 thousand/uL Normal ABS Eos 0.3 thousand/uL Normal ABS Baso 0.1 thousand/uL Normal CBC Scan Auto Diff nRBC Auto 0 NA Sodium 139 mmol/L Normal Potassium 4.4 mmol/L Normal Chloride 104 mmol/L Normal CO2 23 mmol/L Normal Anion Gap 12 mmol/L Normal Glucose Level 91 mg/dL Normal BUN 13 mg/dL Normal Creatinine 1.13 mg/dL Normal BUN/[place] Guide Ratio 11.5 Normal eGFRcr 57 mL/min/1.73m2 L Calcium 9.5 mg/dL Normal Protein, Total 7.8 gm/dL Normal Albumin 4.4 gm/dL Normal Globulin 3 gm/dL NA A/G Ratio 1 NA Bili Total 0.4 mg/dL Normal ALT 27 Units/L Normal AST 22 Units/L Normal Alkphos 74 Units/L Normal Lipase 26.0 Units/L Normal Lactic Acid 0.7 mmol/L Normal Color Yellow Appearance Clear Specific [place] <=1.005 UpH 6.0 UGlucose Negative UBilirubin Negative UKetones Negative UBlood 1+ UProtein Negative UA Urobilinogen 0.2 E.U./dL UNitrite Negative ULeukocyte Esterase Negative Urine Culture if Indicated Not Indicated UA Squam Epithelial None Urine WBCs 0-4 URBC 0-4 UBacteria None . Radiology results: Radiologist's interpretation Name: ROZINA NAVARRO Account: [id number] : 1970 Result Date: 09/28/23 15:32 Verified By: Johnnie Ya MD at 09/28/23 15:51 Report : US Abdomen Limited IMPRESSION: Fatty infiltration of the liver with focal fatty sparing in the left lobe. 09/28/23 15:10 +++++++++++++++++++++++++++++++++++ ++++++++++++++++++++ Result Date: 09/28/23 14:51 Verified By: Barby Hines DO at 09/28/23 15:04 Report : CT Abdomen+Pelvis w IV Con IMPRESSION: 1. Moderate diffuse colonic diverticulosis without evidence of acute diverticulitis. 2. Hepatic steatosis. 09/28/23 14:41 +++++++++++++++++++++++++++++++++++ ++++++++++++++++++++ . Reexamination/ Reevaluation Time: 09/28/2023 18:16:00 . [...] and Plan Left upper quadrant abdominal pain ([id number] R10.12, Discharge, Medical) Plan Condition: Unchanged. Disposition: Discharged: Time 09/28/2023 18:18:00, to home. Prescriptions: [facility]: dicyclomine 10 mg oral capsule (Prescribe): 1 Cap, PO, QID, for 7 Day, PRN: abdominal pain/spasm, 30 Cap, 0 Refill(s) omeprazole 40 mg oral enteric coated capsule (Prescribe): 1 Cap, PO, Daily, for 30 Day, 30 Cap, 0 Refill(s). Patient was given the following educational materials: Abdominal Pain, Adult, Iyhq-fe-Zdzy. Follow up with: Your GI Doctor of primary care doctor when you go home Within 1 to 2 weeks Return to ED if symptoms worsen. Counseled: Patient, Regarding diagnosis, Regarding diagnostic results, Regarding treatment plan, Regarding prescription, Patient indicated understanding of instructions. Electronically Signed By: Alexander Bo MD On 09/28/23 18:19 Co Signature By: Modify Signature By: Alexander Bo MD On 09/28/23 18:19 09/28/2023 [facility] [address], [place] [id number] ROZINA NAVARRO :1970 ([place]) Visit Date:09/22/2023 SAFE PAIN MEDICINE PRESCRIBING We care about you. Our goal is to treat your medical conditions, including pain, effectively, safely and in the right way. Pain relief treatment can be complicated. Mistakes or abuse of pain medicine can cause serious health problems and . Our emergency department will only provide pain relief options that are safe and correct. For your SAFETY, we routinely follow these rules when helping you with your pain. We look for and treat emergencies. We use our best judgement when treating pain. These recommendations follow legal and ethical advice. You should have only ONE provider and ONE pharmacy helping you with pain. We do not usually prescribe pain medication if you already receive pain medicine from another health care provider. If pain prescriptions are needed for pain, we will only give you a limited amount. We do not refill stolen or lost prescriptions for pain medication. We do not prescribe long-acting pain medicines such as: OxyContin, MSContin, Fentanyl (Duragesic), Methadone, Opana ER, Exalgo, and others. We do not provide missed doses of Methadone. We do not usually give shots for flare-ups of chronic pain. Health care laws, including HIPAA, allow us to ask for all of your medical records. These laws allow us to share information with other health providers who are treating you. We may ask you to show a photo ID when you receive a prescription for pain medicines. In [place], we use the [place] Prescription Drug Monitoring Program called CURES. In [place] and [place], we use the Prescription Monitoring Program that has oversight by the [place] and [place] state boards of pharmacy. These statewide computer systems track opioid pain medications and other controlled substance prescriptions. If you need help with substance abuse or addiction, please call 3-637-260-KIUQ ([phone]) for confidential referral and treatment. Sponsored by: [employer] [facility] PROJECT DEVELOPMENT LEADER [facility] Healthcare Association [facility] [place] [facility] Safe [facility], [facility] [place] [facility] [place] [facility] Emergency Department Patient Discharge Instructions If your symptoms continue or worsen, return to the emergency department or contact your physician. If you have questions about your discharge instructions, call the phone number above. Providers Attending Physician - Khai Awad DO Provider Role Khai Awad DO ED Provider Reason for Visit Reason for visit diagnosis not documented Discharge Diagnosis Urinary tract infection Constipation Discharge Vitals T: 36.5 ?C (Temporal Artery) HR: 87 RR: 16 BP: 138/85 SpO2: 96% Oxygen Method: Room air HT: 162 cm WT: 180 lbs WT: 81.633 kg BMI: 31.105 BSA: 1.92 These instructions are intended to provide general information and guidelines to follow at home to properly care for your particular medical problem. The following diagnostic tests and/or procedures were performed during your stay. Tests Performed Urinalysis (POCT) KUB XR Abd 1 view Most Recent Lab Results Urinalysis (POCT) (09/22/2023) Color - Yellow Appearance - Clear Specific [place] - <=1.005 UpH - 6.0 UGlucose - Negative UBilirubin - Negative UKetones - Negative UBlood - Trace-lysed UProtein - Negative UA Urobilinogen - 0.2 UNitrite - Negative ULeukocyte Esterase - Large Follow-up Instructions: All referrals for follow up medical care may require approval by your insurance carrier. Any provider contact information (below) is provided to assist you in getting the follow up we recommend. However, it's important that you first check with your insurance provider to assure that the provider is in your network and such a visit will be covered. Some plans may require a Primary Care doctor to provide a referral for specialist appointments. Additional Patient Instructions Drink plenty of water, at least 64 ounces per day. Take antibiotics as directed until finished. Eat more fiber in your diet such as fresh fruits and vegetables and whole grain breads and cereals. Drink one bottle of magnesium citrate and take 2 Dulcolax pills today. Start using MiraLAX tomorrow every day for 1 week and then as needed thereafter. Follow-up with your doctor if not better in 3 to 4 days and return to the emergency department if you get worse. You May Need to Schedule the Following Appointments Follow Up with Follow up with primary care provider When Within 1 to 3 days We encourage you to sign up for My Portal, where you can easily access your medical records and test results from all [facility]. Please sign up in one of the following ways: 1. Email invitation. You may have a message in your inbox. Please click the link provided to create an account. OR 2. Request an invitation at your next clinic or hospital visit. Please ask a staff member and they will be happy to assist you. Medications What How Much When Instructions Next Dose New sulfamethoxazole-trimethoprim (Bactrim DS 800 mg-160 mg oral tablet) 1 tab(s) By mouth Twice daily Duration: 10 Days Pickup at [facility] #[id number] Pharmacy Information [facility] #[id number]: [address] [place], [place] [phone] Discharge Orders Discharge Orders: Discharge Now, Home or self care Education Materials Constipation, Adult Constipation is when a person has fewer than three bowel movements in a week, has difficulty having a bowel movement, or has stools (feces) that are dry, hard, or larger than normal. Constipation may be caused by an underlying condition. It may become worse with age if a person takes certain medicines and does not take in enough fluids. Follow these instructions at home: Eating and drinking Eat foods that have a lot of fiber, such as beans, whole grains, and fresh fruits and vegetables. Limit foods that are low in fiber and high in fat and processed sugars, such as fried or sweet foods. These include romanian fries, hamburgers, cookies, candies, and soda. Drink enough fluid to keep your urine pale yellow. General instructions Exercise regularly or as told by your health care provider. Try to do 150 minutes of moderate exercise each week. Use the bathroom when you have the urge to go. Do not hold it in. Take brvq-rot-opujoxn and prescription medicines only as told by your health care provider. This includes any fiber supplements. During bowel movements: Practice deep breathing while relaxing the lower abdomen. Practice pelvic floor relaxation. Watch your condition for any changes. Let your health care provider know about them. Keep all follow-up visits as told by your health care provider. This is important. Contact a health care provider if: You have pain that gets worse. You have a fever. You do not have a bowel movement after 4 days. You vomit. You are not hungry or you lose weight. You are bleeding from the opening between the buttocks (anus). You have thin, pencil-like stools. Get help right away if: You have a fever and your symptoms suddenly get worse. You leak stool or have blood in your stool. Your abdomen is bloated. You have severe pain in your abdomen. You feel dizzy or you faint. Summary Constipation is when a person has fewer than three bowel movements in a week, has difficulty having a bowel movement, or has stools (feces) that are dry, hard, or larger than normal. Eat foods that have a lot of fiber, such as beans, whole grains, and fresh fruits and vegetables. Drink enough fluid to keep your urine pale yellow. Take gyqo-dwi-lwukkxl and prescription medicines only as told by your health care provider. This includes any fiber supplements. This information is not intended to replace advice given to you by your health care provider. Make sure you discuss any questions you have with your health care provider. Document Revised: 07/10/2020 Document Reviewed: 07/10/2020 [employer] Patient Education ? 2022 [employer]. Urinary Tract Infection, Adult A urinary tract infection (UTI) is an infection of any part of the urinary tract. The urinary tract includes: The kidneys. The ureters. The bladder. The urethra. These organs make, store, and get rid of pee (urine) in the body. What are the causes This infection is caused by germs (bacteria) in your genital area. These germs grow and cause swelling (inflammation) of your urinary tract. What increases the risk The following factors may make you more likely to develop this condition: Using a small, thin tube (catheter) to drain pee. Not being able to control when you pee or poop (incontinence). Being female. If you are female, these things can increase the risk: Using these methods to prevent : A medicine that kills sperm (spermicide). A device that blocks sperm (diaphragm). Having low levels of a female hormone (estrogen). Being . You are more likely to develop this condition if: You have genes that add to your risk. You are sexually active. You take antibiotic medicines. You have trouble peeing because of: A prostate that is bigger than normal, if you are male. A blockage in the part of your body that drains pee from the bladder. A kidney stone. A nerve condition that affects your bladder. Not getting enough to drink. Not peeing often enough. You have other conditions, such as: Diabetes. A weak disease-fighting system (immune system). Sickle cell disease. Gout. Injury of the spine. What are the signs or symptoms Symptoms of this condition include: Needing to pee right away. Peeing small amounts often. Pain or burning when peeing. Blood in the pee. Pee that smells bad or not like normal. Trouble peeing. Pee that is cloudy. Fluid coming from the vagina, if you are female. Pain in the belly or lower back. Other symptoms include: Vomiting. Not feeling hungry. Feeling mixed up (confused). This may be the first symptom in older adults. Being tired and grouchy (irritable). A fever. Watery poop (diarrhea). How is this treated Taking antibiotic medicine. Taking other medicines. Drinking enough water. In some cases, you may need to see a specialist. Follow these instructions at home: Medicines Take [id number] and prescription medicines only as told by your doctor. If you were prescribed an antibiotic medicine, take it as told by your doctor. Do not stop taking it even if you start to feel better. General instructions Make sure you: Pee until your bladder is empty. Do not hold pee for a long time. Empty your bladder after sex. Wipe from front to back after peeing or pooping if you are a female. Use each tissue one time when you wipe. Drink enough fluid to keep your pee pale yellow. Keep all follow-up visits. Contact a doctor if: You do not get better after 1 2 days. Your symptoms go away and then come back. Get help right away if: You have very bad back pain. You have very bad pain in your lower belly. You have a fever. You have chills. You feeling like you will vomit or you vomit. Summary A urinary tract infection (UTI) is an infection of any part of the urinary tract. This condition is caused by germs in your genital area. There are many risk factors for a UTI. Treatment includes antibiotic medicines. Drink enough fluid to keep your pee pale yellow. This information is not intended to replace advice given to you by your health care provider. Make sure you discuss any questions you have with your health care provider. Document Revised: 04/04/2021 Document Reviewed: 04/04/2021 Elsevier Patient Education ? 2022 [employer] I understand that [facility] is not responsible for any personal belongings/effects or valuables that have not been identified on the valuables and belongings list. Any personal effects brought into the facility and not recorded on the valuables and belongings form are the responsibility of the patient/family/significant other. I have received the indicated patient education materials/instructions and medication list and have verbalized understanding. Patient Name: ROZINA NAVARRO Patient/Responsible Adult Signature: Date/Time: Provider Signature: Date/Time: 09/22/2023 [facility] ED Physician Notes Patient: DARLENE NAVARRO Age: 53 years Sex: F : 1970 Active Insurance: [facility] Admitting MD: Location: [facility] ED: ED06: 01 PCP: Author: Khai Awad DO Date/Time Admit Date: 09/22/23 11:36 Provider Contact Time: 09/22/2023 11:51 Mode of Arrival Mode of Arrival: Ambulatory Chief Complaint Chief Complaint ED: Abdominal/flank pain 09/22/23 11:46 Subjective Nursing Assessment: pt started ti develop L abdo/flank pain x1 week. states she feels bloated and get full faster. some nausea nov/d. increased veggie intake. no c/o. pain worse when laying flat (09/22/23 11:46) History of Present Illness This is a 53-year-old female who presents to the emergency department today stating that she has been having left upper abdominal pain on and off for 1 week. She denies any nausea vomiting or diarrhea. She denies constipation. She denies fever or chills. She denies dysuria, hematuria, urgency, or frequency. She has no history of kidney stones. Health Status Status Patient denies Review of Systems A 10 component review of systems was obtained and is negative except for what was mentioned in the history of present illness. Physical Exam First Vitals Signs Blood Pressure: 138 / 85 (09/22/23 11:46) Heart Rate: 87 (09/22/23 11:46) Respiratory Rate: 16 (09/22/23 11:46) SPO2: 96% (09/22/23 11:46) Oxygen Method: Room air (09/22/23 11:46) Temperature Temporal Artery 36.5 (09/22/23 11:46) General Impression: Well appearing, non-toxic appearing, resting comfortably in bed HEENT: Normocephalic, atraumatic, Eyes: extraocular movements are intact, pupils are round and equal and reactive to light bilaterally, Throat: clear without erythema or exudate, mucous membranes are moist. Cardiovascular: Heart regular rate and rhythm. No appreciable jugular venous distention. Respiratory: Breathing is unlabored, lungs clear are to auscultation bilaterally. No rhonchi, no wheeze or no rales appreciated. Abdomen: Abdomen is soft, left upper quadrant tenderness, non-distended, no organomegaly, no guarding, no rebound. Bowel sounds are normal. Musculoskeletal: Extremities are symmetric and reveal equal pulses. No peripheral edema. No cyanosis. Back: No spinal tenderness. Neurological: Alert and oriented, no slurred speech, moving extremities symmetrically without difficulty. Skin: Warm, dry, with normal turgor. Intact with no visualized rashes. Genitourinary: Deferred. Rectal: Deferred. Most Recent Vitals T: 36.5 ?C (Temporal Artery) HR: 87 RR: 16 BP: 138/85 SpO2: 96% Oxygen Method: Room air WT: 180 lbs WT: 81.633 kg Emergency Department Orders Laboratory and Blood: NOTIFY CLINITEK STATUS (NOTIFY CLINITEK STATUS) Urinalysis (POCT) Radiology: XR Abdomen AP (KUB XR Abd 1 view) Laboratory Results No qualifying data available Urinalysis Urine Color: Yellow Urine Specific [place]: <=1.005 Urine UA PH: 6.0 Urine UA Glucose: Negative Urine UA Bilirubin: Negative Urine UA Ketones: Negative Urine UA Blood: Trace-lysed Urine UA Protein: Negative Urine UA Urobilinogen: 0.2 Urine UA Nitrite: Negative UA Leukocyte Esterase: Large (A) Diagnostic Results/Interpretation Radiology Result Date: 09/22/23 12:33 Verified By: Kodi Mayer MD at 09/22/23 12:40 Report : XR Abdomen AP IMPRESSION: Nonspecific bowel gas pattern. 09/22/23 11:57 +++++++++++++++++++++++++++++++++++ ++++++++++++++++++++ I reviewed the x-ray images independent of the radiologist and my interpretation is consistent with a nonspecific bowel gas pattern however there is a large amount of stool throughout the colon consistent with constipation. Medical Decision Making Differential Diagnoses (considered and possible or likely): Constipation, diverticulitis Differential Diagnoses (considered and unlikely, not requiring evaluation currently): Bowel obstruction unlikely, intussusception unlikely Chronic Conditions (stable and unstable): N/A Comorbid Condition Impacting Present Evaluation/Treatment: N/A ECG/Rhythm Strip/Motor Grader Rough Grade Rhythm Interpretation (rhythm, rate, axis, QRS/T waves, acute/chronic changes, comparisons, clinical findings/diagnosis): Imaging Studies: KUB Tests Ordered and Tests Considered: UA Real Estate Asset Manager Discussion(s): N/A Independent Historian: None Social Determinants of Health: There are no social determinants of health that would prohibit the patient from obtaining medical care. External Records Review: N/A Consideration for Hospitalization: N/A Need to Initiate or Forego Further Testing: N/A Need to Monitor for Drug Toxicities: N/A Illness with High Risk of Morbidity without Treatment: N/A Out-Patient Prescriptions Affecting Other Chronic Conditions: N/A I reviewed the urinalysis results and x-ray results with the patient. Informed her that she has a urinary tract infection and on her x-ray did show a large amount of stool throughout her colon consistent with constipation. I have prescribed Bactrim double strength and advised her to take the antibiotics until finished. I advised her to drink much more water. I also advised her on constipation. Advised her to follow-up with her doctor in 3 to 4 days for reevaluation or return to the emergency department should she get worse. Patient understood and agreed to do so. The patient has remained hemodynamically stable in the emergency department and is safe for discharge home. Patient was advised of findings including incidental findings and treatment plan, as well as the provisional nature of the diagnosis. Patient was given verbal discharge instructions as well as strict return precautions in my usual and customary fashion. Patient voiced understanding and agreement with discharge plan. Final Diagnosis Diagnosis this visit: Urinary tract infection (N39.0) 09/22/2023 13:03 Discharge Constipation (K59.00) 09/22/2023 13:03 Discharge Disposition Discharge Order Details: 09/22/23 13:02:00 MST, Now, Home or self care Discharge Medications New Prescriptions 1. sulfamethoxazole-trimethoprim(Bactr im DS 800 mg-160 mg oral tablet) 1 Tab By mouth Tab twice daily 10 Day Follow-up Follow-Up Details: Provider/Org Name: Follow up with primary care provider Within: 1 to 3 days Comments Drink plenty of water, at least 64 ounces per day. Take antibiotics as directed until finished. Eat more fiber in your diet such as fresh fruits and vegetables and whole grain breads and cereals. Drink one bottle of magnesium citrate and take 2 Dulcolax pills today. Start using MiraLAX tomorrow every day for 1 week and then as needed thereafter. Follow-up with your doctor if not better in 3 to 4 days and return to the emergency department if you get worse. Problem List/Past Medical History Ongoing Constipation Historical No qualifying data Allergies Paxil (Rash) Social History Alcohol Denies, 09/22/2023 Home/Environment Buddhist restrictions/concerns: None., 09/22/2023 Substance Abuse Denies, 09/22/2023 Tobacco Never (less than 100 in lifetime), 09/22/2023 Home Medications Bactrim DS 800 mg-160 mg oral tablet, 1 Tab, PO, BID Electronically Signed By: Khai Awad DO On 09/22/23 13:05 Co Signature By: Estelle Signature By: 09/22/2023 [facility] Physician Emergency department Note Patient: ROZINA NAVARRO Age: 53 years Sex: F : 1970 Active Insurance: [facility] Admitting MD: Location: [facility] ED: ED06: 01 PCP: Author: Khai Awad DO Date/Time Admit Date: 09/22/23 11:36 Provider Contact Time: 09/22/2023 11:51 Mode of Arrival Mode of Arrival: Ambulatory Chief Complaint Chief Complaint ED:Abdominal/flank pain 09/22/23 11:46 Subjective Nursing Assessment:pt started ti develop L abdo/flank pain x1 week. states she feels bloated and get full faster. some nausea nov/d. increased veggie intake. no c/o. pain worse when laying flat (09/22/23 11:46) History of Present Illness This is a 53-year-old female who presents to the emergency department today stating that she has been havingleft upper abdominal pain on and off for 1 week. She denies any nausea vomiting or diarrhea. She denies constipation. She denies fever or chills. She denies dysuria, hematuria,urgency, or frequency. She has no history of kidney stones. Health Status Status Patient denies Review of Systems A 10 component review of systems was obtained and is negative except for what was mentioned in the history of present illness. Physical Exam First Vitals Signs Blood Pressure: 138 / 85(09/22/23 11:46) Heart Rate: 87(09/22/23 11:46) Respiratory Rate: 16(09/22/23 11:46) SPO2: 96%(09/22/23 11:46) Oxygen Method: Room air(09/22/23 11:46) Temperature Temporal Artery 36.5(09/22/23 11:46) General Impression: Well appearing, non-toxic appearing, resting comfortably in bed HEENT: Normocephalic, atraumatic, Eyes: extraocular movements are intact, pupils are round and equal and reactive to light bilaterally, Throat: clear without erythema or exudate, mucous membranes are moist. Cardiovascular: Heart regular rate and rhythm. No appreciable jugular venous distention. Respiratory: Breathing is unlabored, lungs clear are to auscultation bilaterally. No rhonchi, no wheeze or no rales appreciated. Abdomen: Abdomen is soft, left upper quadrant tenderness, non-distended, no organomegaly, no guarding, no rebound. Bowel sounds are normal. Musculoskeletal: Extremities are symmetric and reveal equal pulses. No peripheral edema. No cyanosis. Back: No spinal tenderness. Neurological: Alert and oriented, no slurred speech, moving extremities symmetrically without difficulty. Skin: Warm, dry, with normal turgor. Intact with no visualized rashes. Genitourinary: Deferred. Rectal: Deferred. Most Recent Vitals T:36.5 ?C (Temporal Artery) HR:87 RR:16 BP:138/85 SpO2:96% Oxygen Method:Room air WT:180lbs WT:81.633kg Emergency Department Orders Laboratory and Blood: NOTIFY CLINITEK STATUS (NOTIFY CLINITEK STATUS) Urinalysis (POCT) Radiology: XR Abdomen AP (KUB XR Abd 1 view) Laboratory Results No qualifying data available Urinalysis Urine Color: Yellow Urine Specific [place]: <=1.005 Urine UA PH: 6.0 Urine UA Glucose: Negative Urine UA Bilirubin: Negative Urine UA Ketones: Negative Urine UA Blood: Trace-lysed Urine UA Protein: Negative Urine UA Urobilinogen: 0.2 Urine UA Nitrite: Negative UA Leukocyte Esterase: Large (A) Diagnostic Results/Interpretation Radiology Result Date: 09/22/23 12:33 Verified By: Kodi Mayer MD at 09/22/23 12:40 Report : XR Abdomen AP IMPRESSION: Nonspecific bowel gas pattern. 09/22/23 11:57 +++++++++++++++++++++++++++++++++++ ++++++++++++++++++++ I reviewed thex-ray imagesindependent of the radiologist andmy interpretationisconsistent witha nonspecific bowel gas pattern however there is a large amount of stool throughout the colonconsistent with constipation. Medical Decision Making Differential Diagnoses (considered and possible or likely):Constipation, diverticulitis Differential Diagnoses (considered and unlikely, not requiring evaluation currently):Bowel obstruction unlikely, intussusception unlikely Chronic Conditions (stable and unstable):N/A Comorbid Condition Impacting Present Evaluation/Treatment:N/A ECG/Rhythm Strip/Motor Grader Rough Grade Rhythm Interpretation (rhythm, rate, axis, QRS/T waves, acute/chronic changes, comparisons, clinical findings/diagnosis): Imaging Studies: KUB Tests Ordered and Tests Considered: UA Real Estate Asset Manager Discussion(s):N/A Independent Historian:None Social Determinants of Health: There are no social determinants of health that would prohibit the patient from obtaining medical care. External Records Review:N/A Consideration for Hospitalization:N/A Need to Initiate or Forego Further Testing:N/A Need to Monitor for Drug Toxicities:N/A Illness with High Risk of Morbidity without Treatment:N/A Out-Patient Prescriptions Affecting Other Chronic Conditions: N/A I reviewed the urinalysis results and x-ray results with the patient. Informed her that she has a urinary tract infection andon her x-ray did show a large amount of stool throughout her colon consistent with constipation. I have prescribed Bactrim double strengthand advised her to take the antibiotics until finished. I advised her to drink much more water. I also advised her on constipation. Advised her to follow-up with her doctor in 3 to 4 days for reevaluation or return to the emergency department should she get worse. Patient understood and agreed to do so. The patient has remained hemodynamically stable in the emergency department and is safe for discharge home. Patient was advised of findings including incidental findings and treatment plan, as well as the provisional nature of the diagnosis. Patient was given verbal discharge instructions as well as strict return precautions in my usual and customary fashion. Patient voiced understanding and agreement with discharge plan. Final Diagnosis Diagnosis this visit: Urinary tract infection (N39.0) 09/22/2023 13:03 Discharge Constipation (K59.00) 09/22/2023 13:03 Discharge Disposition Discharge Order Details: 09/22/23 13:02:00 MST, Now, Home or self care Discharge Medications New Prescriptions 1. sulfamethoxazole-trimethoprim(Bactr im DS 800 mg-160 mg oral tablet) 1 Tab By mouth Tab twice daily 10 Day Follow-up Follow-Up Details: Provider/Org Name: Follow up with primary care provider Within: 1 to 3 days Comments Drink plenty of water, at least 64 ounces per day. Take antibiotics as directed until finished.Eat more fiber in your diet such as fresh fruits and vegetables and whole grain breads and cereals. Drink one bottle of magnesium citrate and take 2 Dulcolax pills today. Start using MiraLAX tomorrow every day for 1 week and then as needed thereafter. Follow-up with your doctor if not better in 3 to 4 days and return to the emergency department if you get worse. Problem List/Past Medical History Ongoing Constipation Historical No qualifying data Allergies Paxil(Rash) Social History Alcohol Denies, 09/22/2023 Home/Environment Buddhist restrictions/concerns: None., 09/22/2023 Substance Abuse Denies, 09/22/2023 Tobacco Never (less than 100 in lifetime), 09/22/2023 Home Medications Bactrim DS 800 mg-160 mg oral tablet, 1 Tab, PO, BID Electronically Signed By: Khai Awad DO On 09/22/23 13:05 Co Signature By: Modify Signature By: [facility] Vital Sign Value Date Comments Source Temperature Temporal Artery 36.7 Minoo 09/29/2023 [facility] Systolic 138 mm[Hg] 09/29/2023 [facility] Diastolic 82 mm[Hg] 09/29/2023 [facility] Respiratory Rate 16 Breaths/Min 09/29/2023 [facility] SPO2 97 % 09/29/2023 [facility] Heart Rate 84 bpm 09/29/2023 [facility] Systolic 142 mm[Hg] 09/28/2023 [facility] Diastolic 87 mm[Hg] 09/28/20[facility] SPO2 97 % 09/28/2023 [facility] Temperature PO 36.8 Minoo 09/28/2023 [facility] Heart Rate 87 bpm 09/28/2023 [facility] Respiratory Rate 16 Breaths/Min 09/28/2023 [facility] Glucose Level 91 mg/dL 09/28/2023 [facility] Height 160.02 cm 09/28/2023 [facility] Drug Calc Weight (kg) 81.633 kg 09/28/2023 [facility] [place] BMI 31.88 kg/m2 09/28/2023 [facility] [place] Temperature PO 36.8 Minoo 09/28/2023 [facility] Systolic 136 mm[Hg] 09/28/2023 [facility] Diastolic 88 mm[Hg] 09/28/2023 [facility] Heart Rate 93 bpm 09/28/2023 [facility] Respiratory Rate 20 Breaths/Min 09/28/2023 [facility] [place] SPO2 98 % 09/28/2023 [facility] Systolic 128 mm[Hg] 09/22/2023 [facility] Diastolic 84 mm[Hg] 09/22/2023 [facility] Respiratory Rate 16 Breaths/Min 09/22/2023 [facility] SPO2 97 % 09/22/2023 [facility] Heart Rate 78 bpm 09/22/2023 [facility] Height 162 cm 09/22/2023 [facility] Drug Calc Weight (kg) 81.633 kg 09/22/2023 [facility] BMI 31.105 kg/m2 09/22/2023 [facility] Temperature Temporal Artery 36.5 Minoo 09/22/2023 [facility] Systolic 138 mm[Hg] 09/22/2023 [facility] Diastolic 85 mm[Hg] 09/22/2023 [facility] Heart Rate 87 bpm 09/22/2023 [facility] Respiratory Rate 16 Breaths/Min 09/22/2023 [facility] SPO2 96 % 09/22/2023 [facility] Encounters Location Location Details Encounter Type Encounter Number Reason For Visit Attending Provider ADM Date DC Date Status Source [facility] en Emergency [id number] Khai Awad 09/22 [facility] [place] [facility] [place] Emergency [id number] Alexander [facility] Procedures Procedure Code Date Perfomer Comments Source ECHO EXAM OF ABDOMEN 13311 09/28/2023 [facility] [place] COMPREHEN METABOLIC PANE 64451 09/28/2023 [facility] URINALYSIS AUTO W/SCOPE 88160 09/28/2023 [facility] ASSAY OF LACTIC ACID 94211 09/28/2023 [facility] ASSAY OF LIPASE 13296 09/28/2023 [facility] [place] COMPLETE CBC W/AUTO DIFF [id number] 09/28/2023 [facility] [place] HYDRATE IV INFUSION ADD- 94164 09/28/2023 [facility] [place] THER/[place]H/[place] P [id number] 09/28/2023 [facility] [place] TX/PRO/DX INJ NEW DRUG A 42486 09/28/2023 [facility] KETOROLAC TROMETHAMINE I J1885 09/28/2023 [facility] [place] ONDANSETRON HCL INJECTIO J2405 09/28/2023 [facility] NORMAL SALINE SOLUTION I J7030 09/28/2023 [facility] [place] LOCM 300-399MG/ML IODINE Q9967 09/28/2023 [facility] [place] URINALYSIS AUTO W/O SCOP [id number] 09/22/2023 [facility] section (procedure) [id number] [facility] Social History Social History Date Source Social History TypeResponse Smoking Status Never (less than 100 in lifetime) entered on: 09/28/23 Sex Female [facility] [place] Social History TypeResponse Smoking Status Never (less than 100 in lifetime) entered on: 09/28/23 Sex Female [facility] [place] Assessment and Plan Result Assessment and Plan Date Source Assessment and Plan No data available fo r this section 09/29/2023 [facility] [place] Assessment and Plan No data available fo r this section 09/22/2023 [facility] [place] Family History Results Value Date Source Family History No data available fo r this section 09/29/2023 [facility] Family History No data available fo r this section 09/22/2023 [facility] [place]
[2024-02-18 08:34] VITALS: BP 122/80; PULSE 92; TEMP 36.9; BMI 32.4
== END 2024-02-18 10:26 | disposition home or self-care (01) ==
PROVIDERS: PCP Internal Medicine; Visit Provider Physician Assistant
DX: J01.00 Acute maxillary sinusitis, unspecified (principal)
CPT/HCPCS: 99214

== ENCOUNTER 2024-02-18 09:01 | Outpatient (REF) | payer BC, SELFPAY ==
[2024-02-18 10:57] LABS: Influenza A PCR NEGATIVE (Negative); Influenza B PCR NEGATIVE (Negative); Resp Syncy Virus RNA Qual PCR NEGATIVE (Negative); SARS COV2 PCR INHOUSE NEGATIVE (Negative)
== END 2024-02-18 09:02 | disposition home or self-care (01) ==
LOC: HO.LAB 09:01
PROVIDERS: Visit Provider Physician Assistant
DX: J06.9 Acute upper respiratory infection, unspecified (principal)
CPT/HCPCS: 0241U

== ENCOUNTER 2024-05-30 11:59 | Outpatient (AMB) | payer BC, SELFPAY ==
--- NOTE | 2024-05-30 12:16 | A.OFFPC_ITS ---
Vital Signs 05/30/24 12:17 Height 5 ft 3 in Weight 195 lb BMI 34.5 BP 124/86 Blood Pressure Location Rt brachial Position Sitting Pulse 91 Pulse Source Pulse Oximeter Pulse Oximetry (%) 98 Oxygen Delivery Method Room Air Intake Visit Reasons: PE Intake Note: Pt is here today for her PE Allergies paroxetine [From PAXIL] Allergy (Intermediate, Verified 05/30/24 12:18) RASH FACE/NECK adhesive [ADHESIVE] Allergy (Mild, Verified 05/30/24 12:18) BLISTERS adhesives, tape Allergy (Unknown, Uncoded 05/30/24 12:18) blisters Medication List - Last Reconciled 05/30/24 by Aleisha Ruby MD ascorbate calcium (vitamin C) 500 mg PO DAILY cholecalciferol (vitamin D3) 125 mcg PO DAILY glucosamine-chondroitin 250-200 mg (Osteo Bi-Flex) 1 tab PO DAILY lactobacillus combination no.4 (Probiotic) 3,000 mmu cells PO DAILY magnesium 250 mg PO DAILY oxymetazoline 0.05% (Afrin (oxymetazoline)) 1 spray intranasal BID PRN soy isofla-blk cohosh-mag bark 155 mg (Estroven) 1 cap PO DAILY trazodone 50 mg PO BEDTIME venlafaxine ER 300 mg PO BEDTIME Tobacco use date assessed: 05/30/24 Dental Screening Dental Screen Date: 05/30/24 Did you have a dental visit in the last 12 months?: No Did you have a dental problem in the last 6 months where you did not have access to dental care?: No Was dental information given to patient?: Patient declined HPI PE HPI Details Pt presents for PE. She has been exercising up to 4 times a week and a well balance decrease caloric intake diet for the last 6 months without significant weight loss. Patient is interested in trying a GLP 1 agonist. She is moving to [place] next month to live with her mother. [facility] Medical History (Updated 05/30/24 @ 13:12 by Aleisha Ruby MD) Annual physical exam Mammogram normal Normal Pap smear Diverticulosis Anxiety Insomnia Surgical History H/O colonoscopy S/P ACL reconstruction History of section Family History Mother Hypertension Thyroid disorder Father Diverticulitis Maternal Grandmother Thyroid disorder Social History Household Members: Children Household Members Other:: 14 years daughter, works in will be retired in July Housing: Apartment Do you presently have visiting nurse or other home services: No Alcohol intake: never Patient Tobacco Use Status: Never used Tobacco e-Cigarette/Vaping Use: Never Used Second Hand Smoke Exposure: No service: No Current occupational status: employed Cognitive needs: No Hearing needs: No Vision needs: Yes Questionnaire PHQ-9 Over the last 2 weeks, how often have you been bothered by any of the following problems? 1. Little interest or pleasure in doing things: not at all 2. Feeling down, depressed, or hopeless: not at all 3. Trouble falling or staying asleep, or sleeping too much: several days 4. Feeling tired or having little energy: several days 5. Poor appetite or overeating: not at all 6. Feeling bad about yourself - or that you are a failure or have let yourself or your family down: not at all 7. Trouble concentrating on things, such as reading the newspaper or watching television: not at all 8. Moving or speaking so slowly that other people could have noticed. Or the opposite - being so fidgety or restless that you have been moving around a lot more than usual: not at all 9. Thoughts that you would be better off or of hurting yourself in some way: not at all Total score: 2 Depression Screening Interpretation: Negative Depression Screening Done: Yes 80546 - PHQ-9 Billing: Yes Source: Developed by Drs. Denzel Marie, Sugar Jewell, Florentin Medeiros and colleagues, with an educational andrea from [employer]. Thrive Questionnaire Date Thrive assessed: 05/30/24 I am a: Patient What is your living situation today?: I have a steady place to live Within the past 12 months, did the food you bought not last and you didn't have the money to get more?: Never true Within the past 12 months, did you worry whether your food would run out before you got money to buy more?: Never true Do you have trouble paying for medicines?: No Do you have trouble getting transportation to medical appointments?: No Do you have trouble paying your heating and electricity bill?: No Do you have trouble taking care of your child, family member or friend?: No Do you have trouble with day-to-day activities such as bathing, preparing meals, shopping, managing finances, etc.?: No Are you currently unemployed and looking for a job?: No Are you interested in more education?: No Please select the resources that you would like help with: None Currently or been in a relationship where the following occur: No concerns reported THRIVE Score: 0 SHELLIE-7 AMB Questionnaire SHELLIE-7 Date SHELLIE - 7 assessed: 05/12/23 Source: Developed by Drs. Denzel Marie, Sugar Jewell, Florentin Medeiros and colleagues, with an educational andrea from [employer]. Review of Systems Const All systems reviewed & are unremarkable except as noted in HPI and below ENT Reports no additional complaints Card Reports no additional complaints Resp Reports no additional complaints GI Reports no additional complaints Reports no additional complaints Physical exam (Primary Care) Vital Signs: Last Vital Signs Pulse 91 05/30/24 12:17 BP 124/86 05/30/24 12:17 Pulse Ox 98 05/30/24 12:17 Oxygen Delivery Method Room Air 05/30/24 12:17 BMI result Body Mass Index 34.5 Tobacco/Smoking Status: Tobacco use Status Tobacco use date assessed 05/30/24 05/30/24 12:21 Patient Tobacco Use Status Never used Tobacco 05/30/24 12:21 e-Cigarette/Vaping Use Never Used 05/30/24 12:21 PHQ-9: PHQ-9 Score PHQ-9: Total score 2 05/30/24 12:21 Depression Screening Interpretation: Negative Thrive Assessment: Date of Thrive Assessment Date Thrive assessed 05/30/24 05/30/24 12:21 Currently or been in a relationship where the following occur: No concerns reported Const General: no acute distress HENMT Ears: hearing grossly normal bilaterally Throat: Yes posterior oropharynx normal Neck Neck: Yes no lymphadenopathy and Yes supple Resp Effort & Inspection: normal respiratory effort Auscultation: clear to auscultation bilaterally Cardio Rhythm: regular rhythm Heart sounds: S1 normal heart sound present and S2 normal heart sound present GI Inspection: Yes normal to inspection Palpation (GI): Soft to palpation Percussion: Yes normal to percussion Auscultation: normal bowel sounds Assessment and Plan Assessment & Plan (1) Annual physical exam: Code(s): Z00.00 - Encounter for general adult medical examination without abnormal findings Plan: Well-balanced diet regular physical activity discussed with the patient. Patient declined fasting blood work. She is up-to-date with the Pap smear by document image technician and will have a colonoscopy. (2) BMI 34.0-34.9,adult: Code(s): Z68.34 - Body mass index [BMI] 34.0-34.9, adult Plan: Patient will continue regular exercise decrease caloric intake and Zepbound 2.5 mg weekly for the 1st month will be tried. If patient tolerate medication well the dose will be increased to 5 mg for the next month and then patient will follow-up (3) Hyperplastic colon polyp: Code(s): K63.5 - Polyp of colon Plan: Patient will have a colonoscopy in July (4) Anxiety: Comment: Controlled on medications, patient follows up with Psychiatry Code(s): F41.9 - Anxiety disorder, unspecified Plan: cont meds Medications: New tirzepatide (weight loss) (Zepbound) for 4 weeks, then 5 mg q weekly 2.5 mg (0.5 mL) subcut QWEEK 6 mL 1RF tirzepatide (weight loss) (Zepbound) for 4 weeks, 2.5 mg (0.5 mL) subcut QWEEK 2 mL 0RF Coding Level of Care Code Est Pt Prev Care 40-64y(32685) Diagnoses Annual physical exam Z00.00 BMI 34.0-34.9,adult Z68.34 Hyperplastic colon polyp K63.5 Anxiety F41.9
[2024-05-30 12:17] VITALS: BP 124/86; PULSE 91; O2SAT 98; BMI 34.5
== END 2024-05-30 12:46 | disposition home or self-care (01) ==
PROVIDERS: PCP Internal Medicine; Visit Provider Internal Medicine
DX: Z00.00 Encounter for general adult medical examination without abnormal findings (principal); Z68.34 Body mass index [BMI] 34.0-34.9, adult; K63.5 Polyp of colon; F41.9 Anxiety disorder, unspecified

== ENCOUNTER → 2024-05-30 11:59 | Outpatient (BNVA) | payer BC, SELFPAY | PROVIDERS: PCP Internal Medicine; Visit Provider Internal Medicine | DX: Z00.00 Encounter for general adult medical examination without abnormal findings (principal); K63.5 Polyp of colon; F41.9 Anxiety disorder, unspecified | CPT/HCPCS: 96127 ==

== ENCOUNTER 2024-08-23 11:09 | Outpatient (AMB) | payer BC, SELFPAY ==
[2024-08-23 11:13] VITALS: BP 122/86; PULSE 89; O2SAT 95; BMI 33.8
--- NOTE | 2024-08-23 11:13 | MHC.PC.OV ---
Vital Signs 08/23/24 11:13 Height 5 ft 3 in Weight 191 lb BMI 33.8 BP 122/86 Blood Pressure Location Lt brachial Position Sitting Pulse 89 Pulse Source Pulse Oximeter Pulse Oximetry (%) 95 Oxygen Delivery Method Room Air Intake Visit Reasons: Meds follow up Intake Note: Pt is here today for a follow up visit. Allergies paroxetine [From PAXIL] Allergy (Intermediate, Verified 08/23/24 11:19) RASH FACE/NECK adhesive [ADHESIVE] Allergy (Mild, Verified 08/23/24 11:19) BLISTERS adhesives, tape Allergy (Unknown, Uncoded 08/23/24 11:19) blisters Medication List - Last Reconciled 08/23/24 by Aleisha Ruby MD ascorbate calcium (vitamin C) 500 mg PO DAILY cholecalciferol (vitamin D3) 125 mcg PO DAILY glucosamine-chondroitin 250-200 mg (Osteo Bi-Flex) 1 tab PO DAILY lactobacillus combination no.4 (Probiotic) 3,000 mmu cells PO DAILY magnesium 250 mg PO DAILY oxymetazoline 0.05% (Afrin (oxymetazoline)) 1 spray intranasal BID PRN semaglutide (weight loss) (Wegovy) 0.25 mg (0.5 mL) subcut QWEEK soy isofla-blk cohosh-mag bark 155 mg (Estroven) 1 cap PO DAILY trazodone 50 mg PO BEDTIME venlafaxine ER 300 mg PO BEDTIME Tobacco use date assessed: 08/23/24 Dental Screening Dental Screen Date: 05/30/24 HPI Meds follow up HPI Details PATIENT PRESENTS FOR THE FOLLOW-UP OF WEIGHT MANAGEMENT. She has been taking Wegovy for 2 months and has been tolerating medication well. Patient has been more physically active decreasing caloric intake and lost 5 lb. She is moving to [facility] Medical History Annual physical exam Mammogram normal Normal Pap smear Diverticulosis Anxiety Insomnia Surgical History H/O colonoscopy S/P ACL reconstruction History of section Family History Mother Hypertension Thyroid disorder Father Diverticulitis Maternal Grandmother Thyroid disorder Social History Household Members: Children Household Members Other:: 14 years daughter, works in will be retired in July Housing: Apartment Do you presently have visiting nurse or other home services: No Alcohol intake: never Patient Tobacco Use Status: Never used Tobacco e-Cigarette/Vaping Use: Never Used Second Hand Smoke Exposure: No service: No Current occupational status: employed Cognitive needs: No Hearing needs: No Vision needs: Yes Questionnaire Thrive Questionnaire Date Thrive assessed: 05/11/24 I am a: Patient What is your living situation today?: I have a steady place to live Within the past 12 months, did the food you bought not last and you didn't have the money to get more?: Never true Within the past 12 months, did you worry whether your food would run out before you got money to buy more?: Never true Do you have trouble paying for medicines?: No Do you have trouble getting transportation to medical appointments?: No Do you have trouble paying your heating and electricity bill?: No Do you have trouble taking care of your child, family member or friend?: No Do you have trouble with day-to-day activities such as bathing, preparing meals, shopping, managing finances, etc.?: No Are you currently unemployed and looking for a job?: No Are you interested in more education?: No Please select the resources that you would like help with: None Currently or been in a relationship where the following occur: No concerns reported THRIVE Score: 0 SHELLIE-7 AMB Questionnaire SHELLIE-7 Date SHELLIE - 7 assessed: 05/12/23 Source: Developed by Drs. Denzel aMrie, Sugra Jewell, Florentin Medeiros and colleagues, with an educational andrea from [employer]. Review of Systems Const All systems reviewed & are unremarkable except as noted in HPI and below Eyes Reports no additional complaints ENT Reports no additional complaints Card Reports no additional complaints Resp Reports no additional complaints GI Reports no additional complaints Reports no additional complaints Physical exam (Primary Care) Vital Signs: Last Vital Signs Pulse 89 08/23/24 11:13 BP 122/86 08/23/24 11:13 Pulse Ox 95 08/23/24 11:13 Oxygen Delivery Method Room Air 08/23/24 11:13 BMI result Body Mass Index 33.8 Tobacco/Smoking Status: Tobacco use Status Tobacco use date assessed 08/23/24 08/23/24 11:22 Patient Tobacco Use Status Never used Tobacco 08/23/24 11:13 e-Cigarette/Vaping Use Never Used 08/23/24 11:13 Thrive Assessment: Date of Thrive Assessment Date Thrive assessed 05/11/24 08/23/24 11:13 Currently or been in a relationship where the following occur: No concerns reported Const General: no acute distress HENMT Head: Yes normal to inspection Eyes General: appearance normal, both eyes and all related structures Neck Neck: Yes supple Resp Effort & Inspection: normal respiratory effort Auscultation: clear to auscultation bilaterally Cardio Rhythm: regular rhythm Heart sounds: S1 normal heart sound present and S2 normal heart sound present GI Inspection: Yes normal to inspection Palpation (GI): Soft to palpation Coding Level of Care Code Est Pt Level 3 (75027) Diagnoses BMI 34.0-34.9,adult Z68.34 Anxiety F41.9 Assessment & Plan Assessment & Plan (1) BMI 34.0-34.9,adult: Code(s): Z68.34 - Body mass index [BMI] 34.0-34.9, adult Category: Medical Plan: Continue low caloric intake increasing physical activity, Wegovy will be increased to 0.5 mg weekly for next month. If patient tolerate medication well she will try 1 mg weekly afterwards (2) Anxiety: Comment: Controlled on medications, patient follows up with Psychiatry Code(s): F41.9 - Anxiety disorder, unspecified Category: Medical Plan: Continue current medications follow-up with the Psychiatry Orders: Orders Complete Blood Count Auto Diff Today Z00.00 - Encounter for general adult medical examination without abnormal findings, Z68.34 - Body mass index [BMI] 34.0-34.9, adult Comprehensive [place]. Panel Fast Today Z00.00 - Encounter for general adult medical examination without abnormal findings, Z68.34 - Body mass index [BMI] 34.0-34.9, adult Lipid Panel Today Z00.00 - Encounter for general adult medical examination without abnormal findings, Z68.34 - Body mass index [BMI] 34.0-34.9, adult Hemoglobin A1c Today Z00.00 - Encounter for general adult medical examination without abnormal findings, Z68.34 - Body mass index [BMI] 34.0-34.9, adult Medications: New Wegovy (semaglutide (weight loss)) 0.5 mg (0.5 mL) subcut QWEEK 2 mL 1RF NS ondansetron 4 mg PO Q8H 20 tabs 0RF Discontinued tirzepatide (weight loss) (Zepbound) for 4 weeks, Discontinued Reason: Doctor's Order 2.5 mg (0.5 mL) subcut QWEEK 2 mL 0RF
== END 2024-08-23 12:06 | disposition home or self-care (01) ==
PROVIDERS: PCP Internal Medicine; Visit Provider Internal Medicine
DX: Z68.34 Body mass index [BMI] 34.0-34.9, adult (principal); F41.9 Anxiety disorder, unspecified